=== PATIENT | female | born 1950 | race Caucasian/White ===

== ENCOUNTER → 2016-07-25 | Outpatient (CLI) | payer BC ==
[~2016-07-25] MED LIST: ALBUTEROL SULFATE 0.083% NEB 2.5 MG/3 ML AMPUL NEB ONE
--- NOTE | 2016-07-27 09:50 | PULMONARY FUNCTION TEST ---
DATE OF SERVICE: 07/25/2016 THE VITAL CAPACITY IS SLIGHTLY DECREASED. THE EXPIRATORY FLOW RATES ARE SEVERELY DECREASED. THE FEV1/VC IS 35%, PREDICTED: 82% LUNG VOLUMES BY NITROGEN WASH OUT METHOD SHOW: TLC IS 92% OF PREDICTED FRC IS 106% OF PREDICTED RV IS 124% OF PREDICTED THE DLCO IS 8.7, 49% OF PREDICTED. THE RV/TLC RATIO IS 52% PREDICTED 39% AFTER BRONCHODILATOR, EXPIRATORY FLOW RATES SHOW NO SIGNIFICANT CHANGE. IMPRESSION: GOOD PATIENT EFFORT. SEVERE OBSTRUCTIVE DEFECT. LUNG VOLUMES ARE NORMAL, BUT THE INCREASED RV/TLC INDICATES AIR TRAPPING. DIFFUSING CAPACITY IS SEVERELY DECREASED. CC: PATRIC STARR MD > BIA
== END ==
LOC: RT 10:21
PROVIDERS: ATTEND Internal Medicine Pulmonary Disease
DX: J44.1 Chronic obstructive pulmonary disease with (acute) exacerbation (principal)
CPT/HCPCS: 94060; 94729

== ENCOUNTER 2017-02-01 14:12 | Inpatient (IN) | payer MEDICARE, OTHER ==
[2017-02-01] MEDS ORDERED: MORPHINE SULFATE 10 MG/ML INJ IV ONE (14:58)
--- NOTE | 2017-02-01 14:58 | ER Document Report ---
ED Hip Pain/Injury - General Chief Complaint: Hip Injury Stated Complaint: FALL HIP PAIN Time Seen by Provider: 02/01/17 14:57 Mode of Arrival: Stretcher Information source: Patient TRAVEL OUTSIDE OF THE [place] IN LAST 30 DAYS: No - HPI Patient complains to provider of: Injury, Pain, Hip Occurred: Just prior to arrival Where: [place]doors Onset/Duration: Sudden Quality of pain: Achy Severity: Moderate Pain Level: 5 Context: Fell/slipped Skin Color: Normal Skin Temperature: Warm Pain with palpation of the pelvis: Yes Notes: Patient is a 66-year-old female presenting to the emergency room today complaining of left hip pain status post fall, states she had a fall onto her knees yesterday evening causing injury with skin tears and abrasions, she was also having some pain in her left pelvis, she does have a history of a pelvic fracture in 2014, today she went to see her primary care provider regarding her pain, was stepping to get out of the car when the pain was intense and her leg gave out on her causing her to fall to the ground on her left hip, since then she has been and able to ambulate and her pain is significantly increased, she denies any head injury or loss of consciousness, last tetanus shot is in 2003 - Related Data Allergies/Adverse Reactions: No Known Allergies Allergy (Verified 02/01/17 16:00) Past Medical History - General Information source: Patient - Social History Smoking Status: Former Smoker Chew tobacco use (# tins/day): No Frequency of alcohol use: None Drug Abuse: None Family History: Hypertension - Father, Malignancy - Mother with lung cancer - Past Medical History Cardiac Medical History: Reports: Hx Hypertension Denies: Hx Coronary Artery Disease, Hx Heart Attack Pulmonary Medical History: Reports: Hx COPD, Hx Pneumonia Denies: Hx Asthma, Hx Bronchitis, Hx Tuberculosis Neurological Medical History: Denies: Hx Cerebrovascular Accident, Hx Seizures Malignancy Medical History: Reports: Hx Breast Cancer GI Medical History: Denies: Hx Hepatitis, Hx Hiatal Hernia, Hx Ulcer Musculoskeltal Medical History: Reports Hx Arthritis Psychiatric Medical History: Reports: Hx Anxiety, Hx Depression Infectious Medical History: Denies: Hx Hepatitis Past Surgical History: Reports: Hx Breast Surgery - Lumpectomy, Hx Gynecologic Surgery - lainey salpingooophorectomy, Hx Hysterectomy, Hx Tubal Ligation. Denies : Hx Mastectomy - LUMPECTOMY, Hx Open Heart Surgery, Hx Pacemaker - Immunizations Hx Diphtheria, Pertussis, Tetanus Vaccination: Yes - 2001 Hx Pneumococcal Vaccination: 07/05/15 Review of Systems - Review of Systems Constitutional: No symptoms reported EENT: No symptoms reported Cardiovascular: No symptoms reported Respiratory: No symptoms reported Gastrointestinal: No symptoms reported Genitourinary: No symptoms reported Female Genitourinary: No symptoms reported Musculoskeletal: See HPI Skin: See HPI Hematologic/Lymphatic: No symptoms reported Neurological/Psychological: No symptoms reported -: Yes All other systems reviewed and negative Physical Exam - Vital signs Vitals: Temp Pulse Resp BP Pulse Ox 98.0 F 80 18 117/64 96 02/01/17 14:02/01/17 14:26 02/01/17 14:26 02/01/17 14:02/01/17 14:26 Interpretation: Normal - General General appearance: Appears well, Alert - HEENT Head: Normocephalic, Atraumatic Eyes: Normal Pupils: PERRL - Respiratory Respiratory status: No respiratory distress Chest status: Nontender Breath sounds: Normal Chest palpation: Normal - Cardiovascular Rhythm: Regular Heart sounds: Normal auscultation Murmur: No - Abdominal Inspection: Normal Distension: No distension Bowel sounds: Normal Tenderness: Nontender Organomegaly: No organomegaly - Back Back: Normal, Nontender - Extremities General upper extremity: Normal inspection, Nontender, Normal color, Normal ROM , Normal temperature General lower extremity: Normal temperature. No: Casey's sign Hip: Tender - Tender to palpate in the left pubic area, pain with range of motion of the left leg which is slightly shortened, distal sensation and motor is intact with 2+ DP pulses and brisk capillary refill Knee: Abrasion - Abrasions and skin tears to bilateral knees - Neurological Neuro grossly intact: Yes Cognition: Normal Orientation: AAOx4 Charles Coma Scale Eye Opening: Spontaneous [place] Coma Scale Verbal: Oriented Charles Coma Scale Motor: Obeys Commands Charles Coma Scale Total: 15 Speech: Normal Motor strength normal: LUE, RUE, LLE, RLE Sensory: Normal - Psychological Associated symptoms: Normal affect, Normal mood - Skin Skin Temperature: Warm Skin Moisture: Dry Skin Color: Normal Course - Re-evaluation Re-evalutation: 02/01/17 15:22 A call was placed to the finishing area operator who transferred me to on-call orthopedics cell phone, Dr. Rodrigues, I was transferred right to voicemail and left a message requesting a return phone call 02/01/17 15:58 Patient was discussed with Dr. Rodrigues, who will see patient on consult for left femoral neck fracture 02/01/17 16:34 Patient was discussed with Dr. Sears who agrees to admit for further evaluation and treatment - Vital Signs Vital signs: Temp Pulse Resp BP Pulse Ox 98.0 F 80 18 117/64 96 02/01/17 14:26 02/01/17 14:26 02/01/17 14:26 02/01/17 14:26 02/01/17 14:26 - Laboratory Result Diagrams: 02/01/17 15:31 02/01/17 15:31 Laboratory results interpreted by me: 02/01/17 02/01/17 15:31 15:31 RBC 3.57 L Hct 33.8 L MCH 33.9 H Seg Neutrophils % 79.0 H Lymphocytes % 9.4 L Sodium 131.7 L Chloride 96 L BUN 6 L Direct Bilirubin 0.6 H AST 44 H - Diagnostic Test Radiology reviewed: Image reviewed, Reports reviewed - EKG Interpretation by Me EKG shows normal: Sinus rhythm Rate: Normal Rhythm: NSR Discharge - Discharge Clinical Impression: Hip fracture Qualifiers: Encounter type: initial encounter Fracture type: closed Laterality: left Qualified Code(s): S72.002A - Fracture of unspecified part of neck of left femur , initial encounter for closed fracture Condition: Stable Disposition: ADMITTED INPATIENT Admitting Provider: Hospitalist Unit Admitted: Medical Floor
--- NOTE | 2017-02-01 15:19 | RADIOLOGY REPORT (SQ) ---
EXAM DESCRIPTION: HIP LEFT AP/LATERAL COMPLETED DATE/TIME: 02/01/2017 3:04 pm REASON FOR STUDY: fall COMPARISON: None. NUMBER OF VIEWS: Two views. TECHNIQUE: AP pelvis and additional frog-leg view of the left hip. LIMITATIONS: None. FINDINGS: MINERALIZATION: Normal. LEFT HIP: Fracture is identified at the base of the femoral neck. There is angulation with some over riding of the fracture fragments. RIGHT HIP: No fracture or dislocation. No worrisome bone lesions. PUBIS AND ISCHIUM: There is bony deformity of the pubic rami on the left presumably related to previo us trauma PELVIS: No fracture. SACRUM: No fracture or dislocation. No worrisome bone lesions. LOWER LUMBAR SPINE: Postsurgical changes are identified at the lumbar sacral junction with orthopedic hardware. SOFT TISSUES: No findings. OTHER: No other significant finding. IMPRESSION: Fracture involving the base of the left femoral neck. Other findings as noted above TECHNICAL DOCUMENTATION: JOB ID: [id number] [employer]- All Rights Reserved
[2017-02-01] MEDS ORDERED: DIPH/PERTUSS(ACELL)/TETANUS VAC/PF 0.5 ML SYR (>=10YO) IM ONE (15:38)
[2017-02-01 15:45] LABS: ABSOLUTE BASOPHILS # (AUTO) 0.1 10^3/uL (0.0-0.2); ABSOLUTE EOSINOPHILS # (AUTO) 0.3 10^3/uL (0.0-0.6); ABSOLUTE LYMPHOCYTES (AUTO) 0.6 10^3/uL (0.5-4.7); ABSOLUTE MONOCYTES (AUTO) 0.4 10^3/uL (0.1-1.4); ABSOLUTE NEUT (AUTO) 5.1 10^3/uL (1.7-8.2); BASOPHILS % (AUTO) 1.1 % (0-2); HEMATOCRIT 33.8 % (36.0-47.0); HEMOGLOBIN 12.1 g/dL (12.0-15.5); HGB HCT DIFFERENCE 2.5; LYMPHOCYTES % (AUTO) 9.4 % (13-45); MEAN CORPUSCULAR HEMOGLOBIN 33.9 pg (27.0-33.4); MEAN CORPUSCULAR HGB CONC 35.8 g/dL (32.0-36.0); MEAN CORPUSCULAR VOLUME 95 fl (80-97); MONOCYTES % (AUTO) 6.5 % (3-13); RED BLOOD COUNT 3.57 10^6/uL (3.72-5.28); RED CELL DISTRIBUTION WIDTH 12.6 % (11.5-14.0); WHITE BLOOD COUNT 6.5 10^3/uL (4.0-10.5)
[2017-02-01 15:56] LABS: PARTIAL THROMBOPLASTIN TIME 32.1 SEC (23.5-35.8)
--- NOTE | 2017-02-01 16:00 | RADIOLOGY REPORT (SQ) ---
EXAM DESCRIPTION: CHEST SINGLE VIEW COMPLETED DATE/TIME: 02/01/2017 3:26 pm REASON FOR STUDY: fall COMPARISON: March 2016 EXAM PARAMETERS: NUMBER OF VIEWS: One view. TECHNIQUE: Single frontal radiographic view of the chest acquired. RADIATION DOSE: NA LIMITATIONS: None. FINDINGS: LUNGS AND PLEURA: No opacities, masses or pneumothorax. No pleural effusion. Linear scarr ing or subsegmental atelectasis is identified in the left lung base. I cannot exclude a component of obstructive lung disease. MEDIASTINUM AND HILAR STRUCTURES: No masses. Contour normal. HEART AND VASCULAR STRUCTURES: Heart normal in size. Normal vasculature. BONES: No acute findings. HARDWARE: None in the chest. OTHER: No other significant finding. IMPRESSION: No significant interval change. No acute changes. Other findings as noted above TECHNICAL DOCUMENTATION: JOB ID: [id number]
[2017-02-01 16:07] LABS: ALANINE AMINOTRANSFERASE 43 U/L (9-52); ALBUMIN 4.5 g/dL (3.5-5.0); ALKALINE PHOSPHATASE 93 U/L (38-126); ANION GAP 9 (5-19); ASPARTATE AMINO TRANSFERASE 44 U/L (14-36); BILIRUBIN,DIRECT 0.6 mg/dL (0.0-0.4); BILIRUBIN,TOTAL 0.9 mg/dL (0.2-1.3); BLOOD UREA NITROGEN 6 mg/dL (7-20); CALCIUM 9.8 mg/dL (8.4-10.2); CARBON DIOXIDE 27 mmol/L (22-30); CHLORIDE 96 mmol/L (98-107); CREATININE RESULT 0.67 mg/dL (0.52-1.25); GLUCOSE 96 mg/dL (75-110); POTASSIUM 4.5 mmol/L (3.6-5.0); SODIUM 131.7 mmol/L (137-145); TOTAL PROTEIN 6.6 g/dL (6.3-8.2)
[2017-02-01] MEDS ORDERED: ONDANSETRON HCL INJ/PF 4 MG/2 ML SDV IV PRN (16:34)
[2017-02-01] MEDS ORDERED: IPRATROPIUM/ALBUTEROL 0.5-2.5 MG/3 ML AMPUL NEB PRN (16:34)
[2017-02-01] MEDS ORDERED: ACETAMINOPHEN 325 MG TABLET PO PRN (16:34)
[2017-02-01] MEDS ORDERED: MORPHINE SULFATE 10 MG/ML INJ IV PRN (16:42)
[2017-02-01 17:19] LABS: APPEARANCE,URINE CLEAR; BILIRUBIN,URINE NEGATIVE (NEGATIVE); GLUCOSE, URINE NEGATIVE (NEGATIVE); KETONES,URINE NEGATIVE (NEGATIVE); LEUKOCYTE ESTERASE,URINE NEGATIVE (NEGATIVE); NITRITE,URINE NEGATIVE (NEGATIVE); PROTEIN,URINE NEGATIVE (NEGATIVE); URINE SPECIFIC GRAVITY 1.006; UROBILINOGEN,URINE NEGATIVE mg/dL (<2.0)
[2017-02-01] MEDS: DOCUSATE SODIUM 100 MG CAPSULE PO SCH (18:10)
[2017-02-01] MEDS ORDERED: LORAZEPAM 0.5 MG TABLET PO PRN (18:15)
--- NOTE | 2017-02-01 18:36 | PDOC H&P ---
History of Present Illness Admission Date/PCP: 02/01/17 16:35 ROBLES FINNEGAN MD History of Present Illness: REGGIE ZHENG is a 66 year old female with a hx of o2 dependant COPD, who complaining of left hip pain status post fall, states she had a fall onto her knees yesterday evening causing injury with skin tears and abrasions, she was also having some pain in her left pelvis, she does have a history of a pelvic fracture in 2014, today she went to see her primary care provider regarding her pain, was stepping to get out of the car when the pain was intense and her leg gave out on her causing her to fall to the ground on her left hip, since then she has been and able to ambulate and her pain is significantly increased, she denies any head injury or loss of consciousness, chest pain, syncope. She is referred to hospital service due to her comorbid conditions. Past Medical History Cardiac Medical History: Reports: Hypertension Denies: Coronary Artery Disease, Myocardial Infarction Pulmonary Medical History: Reports: Chronic Obstructive Pulmonary Disease (COPD) , Pneumonia Denies: Asthma, Bronchitis, Tuberculosis Neurological Medical History: Denies: Seizures Malignancy Medical History: Reports: Breast Cancer GI Medical History: Denies: Hepatitis, Hiatal Hernia Musculoskeltal Medical History: Reports: Arthritis Psychiatric Medical History: Reports: Depression Hematology: Denies: Anemia, Sickle Cell Disease Past Surgical History Past Surgical History: Reports: Hysterectomy, Mastectomy - LUMPECTOMY, Orthopedic Surgery - Back surgery 2, Tubal Ligation Denies: Amputation, Pacemaker Social History Smoking Status: Former Smoker Frequency of Alcohol Use: Social Amount of Alcoholic Beverages Per Day: 2 beer/day Hx Recreational Drug Use: No Drugs: None Hx Prescription Drug Abuse: No - Advance Directive Resuscitation Status: Full Code Surrogate healthcare decision maker:: Will Ferguson, [place] Family History Family History: Hypertension - Father, Malignancy - Mother with lung cancer Parental Family History Reviewed: Yes Children Family History Reviewed: Yes Sibling(s) Family History Reviewed.: Yes Medication/Allergy Home Medications: Albuterol Sulfate [Proair HFA] 2 puff IN Q6HP PRN 02/01/17 Aspirin [Aspirin EC] 81 mg PO DAILY 02/01/17 Budesonide/Formoterol Fumarate [Symbicort 160-4.5 Mcg Inhaler] 2 puff IN HSP PRN 02/01/17 Budesonide/Formoterol Fumarate [Symbicort 160-4.5 Mcg Inhaler] 2 puff IN QAM Cetirizine HCl [Zyrtec 10 mg Tablet] 10 mg PO DAILY 02/01/17 Citalopram Hydrobromide [Celexa] 40 mg PO DAILY 02/01/17 Lisinopril [Zestril] 20 mg PO DAILY 02/01/17 Lorazepam [Ativan 0.5 mg Tablet] 0.5 mg PO BIDP PRN 02/01/17 Meloxicam [Mobic] 15 mg PO DAILY 02/01/17 Multivit-Min/Iron/Folic/Lutein [Centrum Silver Women Tablet] 1 tab PO DAILY Pantoprazole Sodium [Protonix] 40 mg PO DAILY 02/01/17 Tiotropium [place] [Spiriva] 2 puff IN DAILYP PRN 02/01/17 Allergies/Adverse Reactions: No Known Allergies Allergy (Verified 02/01/17 16:00) Review of Systems Constitutional: ABSENT: chills, fever(s), headache(s), weight gain, weight loss Eyes: ABSENT: visual disturbances Ears: ABSENT: hearing changes Cardiovascular: ABSENT: chest pain, dyspnea on exertion, edema, orthropnea, palpitations Respiratory: ABSENT: cough, hemoptysis Gastrointestinal: ABSENT: abdominal pain, constipation, diarrhea, hematemesis, hematochezia, nausea, vomiting Genitourinary: ABSENT: dysuria, hematuria Musculoskeletal: PRESENT: deformity. ABSENT: joint swelling Integumentary: ABSENT: rash, wounds Neurological: ABSENT: abnormal gait, abnormal speech, confusion, dizziness, focal weakness, syncope Psychiatric: ABSENT: anxiety, depression, homidical ideation, suicidal ideation Endocrine: ABSENT: cold intolerance, heat intolerance, polydipsia, polyuria Hematologic/Lymphatic: ABSENT: easy bleeding, easy bruising Physical Exam Vital Signs: Temp Pulse Resp BP Pulse Ox 98.8 F 91 16 140/68 H 99 02/01/17 17:40 02/01/17 17:40 02/01/17 17:40 02/01/17 17:40 02/01/17 17:40 Intake & Output 01/31/17 02/01/17 02/02/17 06:59 06:59 06:59 Weight 53.977 kg General appearance: PRESENT: no acute distress, well-developed, well-nourished Head exam: PRESENT: atraumatic, normocephalic Eye exam: PRESENT: conjunctiva pink, EOMI, PERRLA. ABSENT: scleral icterus Ear exam: PRESENT: normal external ear exam Mouth exam: PRESENT: moist, tongue midline Neck exam: ABSENT: JVD, lymphadenopathy, thyromegaly, tracheal deviation Respiratory exam: PRESENT: clear to auscultation lainey, prolonged expiratory phas , symmetrical, unlabored. ABSENT: accessory muscle use, rales, rhonchi, tachypnea, wheezes Cardiovascular exam: PRESENT: RRR. ABSENT: diastolic murmur, rubs, systolic murmur Pulses: PRESENT: normal dorsalis pedis pul Vascular exam: PRESENT: normal capillary refill GI/Abdominal exam: PRESENT: normal bowel sounds, soft. ABSENT: distended, firm , guarding, mass, Chairez's sign, organolmegaly, rebound, rigid, tenderness Rectal exam: PRESENT: deferred Extremities exam: PRESENT: full ROM. ABSENT: calf tenderness, clubbing, pedal edema Neurological exam: PRESENT: alert, awake, oriented to person, oriented to place , oriented to time, oriented to situation, CN II-XII grossly intact. ABSENT: motor sensory deficit Psychiatric exam: PRESENT: appropriate affect, normal mood. ABSENT: homicidal ideation, suicidal ideation Skin exam: PRESENT: dry, intact, warm. ABSENT: cyanosis, rash Results Laboratory Results: 02/01/17 16:45 Urine Color YELLOW Urine Appearance CLEAR Urine pH 7.0 Ur Specific [place] 1.006 Urine Protein NEGATIVE Urine Glucose (UA) NEGATIVE Urine Ketones NEGATIVE Urine Blood NEGATIVE Urine Nitrite NEGATIVE Ur Leukocyte Esterase NEGATIVE Urine RBC (Auto) 0 Impressions: Hip X-Ray 02/01/17 14:32 IMPRESSION: Fracture involving the base of the left femoral neck. Other findings as noted above Chest X-Ray 02/01/17 14:58 IMPRESSION: No significant interval change. No acute changes. Other findings as noted above Assessment & Plan - Diagnosis (1) Hip fracture Qualifiers: Encounter type: initial encounter Fracture type: closed Laterality: left Qualified Code(s): S72.002A - Fracture of unspecified part of neck of left femur, initial encounter for closed fracture Is this a current diagnosis for this admission?: Yes Plan: Consult surgery (2) Acute and chronic respiratory failure with hypoxia Is this a current diagnosis for this admission?: Yes Plan: Patient normally uses 2 1/2 L of nasal cannula Obtain bedside PFT (3) Gastroesophageal reflux disease Qualifiers: Esophagitis presence: without esophagitis Qualified Code(s): K21.9 - Gastro -esophageal reflux disease without esophagitis Is this a current diagnosis for this admission?: Yes Plan: Continue PPI (4) Hypertension Qualifiers: Hypertension type: essential hypertension Qualified Code(s): I10 - Essential (primary) hypertension Is this a current diagnosis for this admission?: Yes Plan: Continue lisinopril 02/02/17 10:00 Lisinopril [Zestril] 20 mg PO DAILY (5) Osteoarthritis Qualifiers: Osteoarthritis location: unspecified site Osteoarthritis type: unspecified Qualified Code(s): M19.90 - Unspecified osteoarthritis, unspecified site Is this a current diagnosis for this admission?: Yes (6) Seasonal allergic rhinitis Qualifiers: Allergic rhinitis trigger: unspecified Qualified Code(s): J30.2 - Other seasonal allergic rhinitis Is this a current diagnosis for this admission?: No (7) COPD (chronic obstructive pulmonary disease) Qualifiers: COPD type: emphysema Emphysema type: unspecified Qualified Code(s): J43.9 - Emphysema, unspecified Is this a current diagnosis for this admission?: Yes Plan: prn treatments o2 bedside pft - Time Time Spent: 50 to 70 Minutes Anticipated discharge: Acute Rehab
[2017-02-01] MEDS ORDERED: ALBUTEROL SULFATE HFA (90 MCG/PUFF) 200 PUFF/8.5 GM MDI IH PRN (19:00)
[2017-02-01] MEDS ORDERED: TIOTROPIUM BROMIDE DPI 5 CAP/KIT (18 MCG/CAP) IH PRN (19:00)
[2017-02-01 19:10] LABS: HEMATOCRIT 33.8 % (36.0-47.0); HEMOGLOBIN 12.2 g/dL (12.0-15.5); HGB HCT DIFFERENCE 2.8; MEAN CORPUSCULAR HEMOGLOBIN 34.2 pg (27.0-33.4); MEAN CORPUSCULAR VOLUME 95 fl (80-97); RED BLOOD COUNT 3.57 10^6/uL (3.72-5.28); RED CELL DISTRIBUTION WIDTH 12.7 % (11.5-14.0); WHITE BLOOD COUNT 8.8 10^3/uL (4.0-10.5)
[2017-02-01 19:38] LABS: ANION GAP 10 (5-19); BLOOD UREA NITROGEN 5 mg/dL (7-20); CALCIUM 9.6 mg/dL (8.4-10.2); CARBON DIOXIDE 27 mmol/L (22-30); CHLORIDE 94 mmol/L (98-107); CREATININE RESULT 0.61 mg/dL (0.52-1.25); GLUCOSE 107 mg/dL (75-110); POTASSIUM 4.1 mmol/L (3.6-5.0); SODIUM 131.1 mmol/L (137-145)
[2017-02-01] MEDS ORDERED: SILVER SULFADIAZINE 1% CREAM 25 GM TP ONE (20:00)
[2017-02-01] MEDS: BUDESONIDE/FORMOTEROL 160-4.5 MCG 60 PUFF/6 GM MDI IH SCH (21:38)
[2017-02-01] MEDS: HEPARIN SOD (PORCINE) 5,000 UNIT/ML 1 ML SYRINGE SUBCUT SCH (21:57)
--- NOTE | 2017-02-01 22:55 | EKG REPORT ---
SEVERITY:- OTHERWISE NORMAL ECG - SINUS RHYTHM LOW VOLTAGE IN FRONTAL LEADS : Confirmed by: Laurence Hanson 01-Feb-2017 22:54:34
[2017-02-01] MEDS: KETOROLAC TROMETHAMINE INJ/PF 30 MG/1 ML SDV IV PRN (22:56)
[2017-02-02] MEDS: KETOROLAC TROMETHAMINE INJ/PF 30 MG/1 ML SDV IV PRN (04:34)
[2017-02-02] MEDS: HEPARIN SOD (PORCINE) 5,000 UNIT/ML 1 ML SYRINGE SUBCUT SCH ×2 (05:22→13:32)
[2017-02-02 06:21] LABS: ABSOLUTE EOSINOPHILS # (AUTO) 0.3 10^3/uL (0.0-0.6); ABSOLUTE LYMPHOCYTES (AUTO) 0.8 10^3/uL (0.5-4.7); ABSOLUTE MONOCYTES (AUTO) 0.6 10^3/uL (0.1-1.4); ABSOLUTE NEUT (AUTO) 4.2 10^3/uL (1.7-8.2); BASOPHILS % (AUTO) 0.8 % (0-2); EOSINOPHILS % (AUTO) 5.8 % (0-6); HEMATOCRIT 32.6 % (36.0-47.0); HEMOGLOBIN 11.6 g/dL (12.0-15.5); HGB HCT DIFFERENCE 2.2; MEAN CORPUSCULAR HGB CONC 35.5 g/dL (32.0-36.0); MEAN CORPUSCULAR VOLUME 96 fl (80-97); MONOCYTES % (AUTO) 10.7 % (3-13); RED BLOOD COUNT 3.41 10^6/uL (3.72-5.28); RED CELL DISTRIBUTION WIDTH 12.7 % (11.5-14.0); SEGMENTED NEUTROPHILS % (AUTO) 69.7 % (42-78)
[2017-02-02 06:40] LABS: ANION GAP 7 (5-19); BLOOD UREA NITROGEN 9 mg/dL (7-20); CALCIUM 9.8 mg/dL (8.4-10.2); CARBON DIOXIDE 29 mmol/L (22-30); CHLORIDE 96 mmol/L (98-107); CREATININE RESULT 0.72 mg/dL (0.52-1.25); GLUCOSE 105 mg/dL (75-110); POTASSIUM 4.6 mmol/L (3.6-5.0); SODIUM 131.9 mmol/L (137-145)
[2017-02-02] MEDS ORDERED: NORMAL SALINE 1000 ML 1,000 ML IV PRN (07:08)
[2017-02-02] MEDS: LANSOPRAZOLE 30 MG TAB.RAP.DR PO SCH (08:22)
[2017-02-02] MEDS: MORPHINE SULFATE 10 MG/ML INJ IV PRN ×2 (09:57→23:26)
--- NOTE | 2017-02-02 09:58 | XCELERA REPORT ---
[address] [address] Transthoracic Echocardiogram Report Name: REGGIE ZHENG Age: 66 yrs Gender: Female : 1950 Patient Status: Inpatient Patient Location: [address] [place] [address] Study Date: 02/01/2017 07:37 PM Height: 63 in Weight: 119 lb BSA: 1.6 m2 Procedure: A complete two-dimensional transthoracic echocardiogram was performed (2D, M-mode, spectral and color flow Doppler). The study was technically difficult with many images being suboptimal in quality. Reason For Study: CARDIAC CLEARANCE Ordering Physician: BRIE MONTENEGRO Performed By: Razia Santana Interpretation Summary The left ventricular ejection fraction is normal. There is borderline concentric left ventricular hypertrophy. Doppler measurements suggest pseudonormalized left ventricular relaxation, which is associated with grade II/IV or mild to moderate diastolic dysfunction The left ventricle is grossly normal size. Wall motion cannot be accurately commented on, but no definite regional wall motion abnormalities noted. The right ventricular systolic function is normal. The left atrial size is normal. The right atrium is normal in size There is a trace amount of mitral regurgitation There is no mitral valve stenosis. There is no aortic valve stenosis No aortic regurgitation is present. There is a trace or physiologic amount of tricuspid regurgitation Tricuspid regurgitation jet envelope not well defined to measure RV systolic pressure accurately. The aortic root is not well visualized but is probably normal size. The inferior vena cava appeared normal and decreased > 50% with respiration (RAP 5-10 mmHg) There is no pericardial effusion. MMode/2D Measurements & Calculations RVDd: 2.3 cm LVIDd: 4.0 cm FS: 31.3 % Ao root diam: 2.9 cm IVSd: 1.1 cm LVIDs: 2.8 cm EDV(Teich): 70.8 ml LVPWd: 1.0 cm ESV(Teich): 28.5 ml Ao root area: 6.5 cm2 EF(Teich): 59.7 % LA dimension: 2.7 cm LVOT diam: 1.8 cm LVOT area: 2.6 cm2 Doppler Measurements & Calculations MV E max prabhu: MV P1/2t max prabhu: Ao V2 max: LV V1 max P.3 cm/sec 53.3 cm/sec 130.9 cm/sec 7.0 mmHg MV A max prabhu: MV P1/2t: 52.2 msec Ao max PG: LV V1 max: 66.1 cm/sec MVA(P1/2t): 4.2 cm2 6.8 mmHg 132.7 cm/sec MV E/A: 0.79 MV dec slope: STEVEN(V,D): 2.6 cm2 299.2 cm/sec2 PA V2 max: PI end-d prabhu: 100.7 cm/sec 90.9 cm/sec PA max P.1 mmHg Left Ventricle The left ventricle is grossly normal size. There is borderline concentric left ventricular hypertrophy. The left ventricular ejection fraction is normal. Doppler measurements suggest pseudonormalized left ventricular relaxation, which is associated with grade II/IV or mild to moderate diastolic dysfunction. Wall motion cannot be accurately commented on, but no definite regional wall motion abnormalities noted. Right Ventricle The right ventricle is grossly normal size. There is normal right ventricular wall thickness. The right ventricular systolic function is normal. Atria The right atrium is normal in size. The left atrial size is normal. Interarterial septum not well visualized and not well dopplered. Cannot comment on ASD/PFO presence. Mitral Valve The mitral valve is grossly normal. There is no mitral valve stenosis. There is a trace amount of mitral regurgitation. Aortic Valve The aortic valve is not well visualized secondary to technical limitations. There is no aortic valve stenosis. No aortic regurgitation is present. Tricuspid Valve The tricuspid valve is not well visualized, but is grossly normal. There is no tricuspid stenosis. There is a trace or physiologic amount of tricuspid regurgitation. Tricuspid regurgitation jet envelope not well defined to measure RV systolic pressure accurately. Pulmonic Valve The pulmonic valve is not well visualized. There is a trace amount of pulmonic regurgitation. Great Vessels The aortic root is not well visualized but is probably normal size. The inferior vena cava appeared normal and decreased > 50% with respiration (RAP 5-10 mmHg). Effusions There is no pericardial effusion. : BRIE MONTENEGRO > Laurence Hanson
[2017-02-02] MEDS ORDERED: (PENDING PHARMACY ID) (Lisinopril [Zestril] 20 MG) PO SCH (10:00)
[2017-02-02] MEDS ORDERED: (PENDING PHARMACY ID) (Citalopram Hydrobromide [Celexa] 40 MG) PO SCH (10:00)
[2017-02-02] MEDS: FOLIC ACID 1 MG TABLET PO SCH (10:06)
[2017-02-02] MEDS: CITALOPRAM HYDROBROMIDE 20 MG TABLET PO SCH (10:06)
[2017-02-02] MEDS: MULTIVITAMIN TABLET PO SCH (10:06)
[2017-02-02] MEDS: DOCUSATE SODIUM 100 MG CAPSULE PO SCH ×2 (10:06→17:48)
[2017-02-02] MEDS: MELOXICAM 15 MG TABLET PO SCH (10:06)
[2017-02-02] MEDS: LISINOPRIL 10 MG TABLET PO SCH (10:06)
[2017-02-02] MEDS: THIAMINE HCL 100 MG TABLET PO SCH (10:06)
[2017-02-02] MEDS: SILVER SULFADIAZINE 1% CREAM 25 GM TP SCH (10:06)
[2017-02-02] MEDS: CETIRIZINE 10 MG TABLET PO SCH (10:06)
[2017-02-02] MEDS: MAGNESIUM SULFATE/D5W 1 GM/100 ML RTUPB IV SCH ×2 (11:09→12:30)
[2017-02-02] MEDS: BUDESONIDE/FORMOTEROL 160-4.5 MCG 60 PUFF/6 GM MDI IH SCH ×2 (11:10→21:44)
[2017-02-02] MEDS ORDERED: LIDOCAINE 2% INJ-PF (20 MG/ML) 10 ML AMPUL ONE (13:18)
[2017-02-02] MEDS ORDERED: DEXAMETHASONE SOD PHOSPHATE INJ 4 MG/1 ML VIAL ONE (13:18)
[2017-02-02] MEDS ORDERED: ONDANSETRON HCL INJ/PF 4 MG/2 ML SDV ONE (13:18)
[2017-02-02] MEDS ORDERED: KETOROLAC TROMETHAMINE 60 MG/2 ML SDV ONE (13:18)
[2017-02-02] MEDS ORDERED: CEFAZOLIN INJ 1 GM VIAL ONE (13:47)
[2017-02-02] MEDS ORDERED: PROPOFOL INJ 200 MG/20 ML VIAL IV ONE (13:59)
[2017-02-02] MEDS ORDERED: MIDAZOLAM 2 MG/2 ML INJ ONE (13:59)
[2017-02-02] MEDS ORDERED: ACETAMINOPHEN 100 ML IV ONE (13:59)
[2017-02-02] MEDS ORDERED: DEXMEDETOMIDINE INJ 80 MCG/20 ML VIAL IV ONE (14:00)
[2017-02-02] MEDS ORDERED: FENTANYL CITRATE INJ/PF 100 MCG/2 ML AMPUL ONE ×2 (14:00)
[2017-02-02] MEDS ORDERED: KETAMINE HCL INJ 500 MG/10 ML VIAL ONE (14:06)
[2017-02-02] MEDS ORDERED: EPHEDRINE SULFATE INJ 50 MG/1 ML AMPULE ONE (14:07)
[2017-02-02] MEDS ORDERED: FENTANYL CITRATE INJ/PF 100 MCG/2 ML AMPUL IV PRN ×3 (14:44)
[2017-02-02] MEDS ORDERED: ONDANSETRON HCL INJ/PF 4 MG/2 ML SDV IV PRN (14:44)
[2017-02-02] MEDS ORDERED: DIPHENHYDRAMINE HCL 50 MG/ML VIAL IV PRN (14:44)
[2017-02-02] MEDS ORDERED: MEPERIDINE HCL/PF INJ 25 MG/1 ML DISP.SYRIN IV PRN (14:44)
[2017-02-02] MEDS ORDERED: PROMETHAZINE HCL INJ 25 MG/1 ML VIAL IV PRN ×2 (14:44)
--- NOTE | 2017-02-02 16:05 | RADIOLOGY REPORT (SQ) ---
EXAM DESCRIPTION: NO CHG FLUORO; HIP LEFT AP/LATERAL COMPLETED DATE/TIME: 02/02/2017 3:55 pm REASON FOR STUDY: LEFT HIP IM NAILING COMPARISON: None. FLUOROSCOPY TIME: 0.7 minutes 11 Images saved to PACS TECHNIQUE: Intra-operative images acquired during surgical procedure to evaluate progress. NUMBER OF IMAGES: 11 LIMITATIONS: None. FINDINGS: Cachorro and compression screw fixation of femoral neck fracture. Alignment is anatomic. IMPRESSION: IMAGE(S) OBTAINED DURING PROCEDURE. COMMENT: Quality ID [id number]: Final reports for procedures using fluoroscopy that document radiation exp osure indices, or exposure time and number of fluorographic images (if radiation exposure indices are not available) Please consult full operative report of the attending physician for description of the procedure. TECHNICAL DOCUMENTATION: JOB ID: [id number] [employer]- All Rights Reserved
--- NOTE | 2017-02-02 16:05 | RADIOLOGY REPORT (SQ) ---
EXAM DESCRIPTION: NO CHG FLUORO; HIP LEFT AP/LATERAL COMPLETED DATE/TIME: 02/02/2017 3:55 pm REASON FOR STUDY: LEFT HIP IM NAILING COMPARISON: None. FLUOROSCOPY TIME: 0.7 minutes 11 Images saved to PACS TECHNIQUE: Intra-operative images acquired during surgical procedure to evaluate progress. NUMBER OF IMAGES: 11 LIMITATIONS: None. FINDINGS: Cachorro and compression screw fixation of femoral neck fracture. Alignment is anatomic. IMPRESSION: IMAGE(S) OBTAINED DURING PROCEDURE. COMMENT: Quality ID [id number]: Final reports for procedures using fluoroscopy that document radiation exp osure indices, or exposure time and number of fluorographic images (if radiation exposure indices are not available) Please consult full operative report of the attending physician for description of the procedure. TECHNICAL DOCUMENTATION: JOB ID: [id number] [employer]- All Rights Reserved
--- NOTE | 2017-02-02 16:19 | Operative Report ---
Operative Report DATE OF SURGERY: 02/02/17 PREOPERATIVE DIAGNOSIS: Left Basicervical hip fracture POSTOPERATIVE DIAGNOSIS: Same OPERATION: Cephalo-medullary nailing of left hip fracture SURGEON: BRIE MONTENEGRO ANESTHESIA: GA TISSUE REMOVED OR ALTERED: None COMPLICATIONS: None ESTIMATED BLOOD LOSS: 100mL INTRAOPERATIVE FINDINGS: As above PROCEDURE: Patient was seen and evaluated in the preoperative holding area. The left lower extremity was initialized and marked. Patient received 2 g Ancef IV for bacterial prophylaxis. Patient was taken back to the operative room where transferred operative table. Patient was placed under spinal anesthesia. Once adequate anesthetized he was carefully placed onto the hip positioner the nonoperative lower extremity and bilateral upper extremities were carefully padded and the peroneal nerve was padded and on the nonoperative extremity. The operative extremity was placed in a traction along with adduction and internal rotation. A surgical team debriefing was performed ensuring all instrumentation was available, the surgical procedure was discussed with possible concerns reviewed. A timeout was done identifying correct patient, procedure and extremity everyone in attendance agree with this and verbalized no concerns. Reduction maneuver with the use of the hip traction table were done and C-arm fluoroscopy was used to confirm optimal reduction of the intertrochanteric fracture. Once this was confirmed the lower extremity was prepped with chlor prep and draped in a sterile fashion. At this point a small skin incision was made proximal to the greater trochanter. The guidewire was placed onto the tip of the trochanter advanced down to the level of the lesser trochanter. AP and lateral fluoroscopy was used to confirm appropriate placement of the guidewire. The skin incision was then extended and the underlying fascia opened up carefully to the tip of the greater trochanter. The entry reamer was then used and advanced to the level of the lesser trochanter. At this point Edwar short gamma nail was opened up and placed onto the aiming arm and advanced down the shaft of the femur. AP and lateral fluoroscopy was then used to confirm appropriate placement of the nail. Then turned my attention to the compression screw fixation in the femoral head. The trochars were advanced to the skin, a skin incision was made, careful dissection down to the fascia to the lateral femoral cortex was then partaken. The guidewire was then used and placed in the center center position with the tip apex distance less than 25 mm. Once this position was obtained the size of the compression screw was measured. AP and lateral fluoroscopy used to confirm appropriate placement of our guide wire. The step reamer was used to drill up through the femoral neck and head. I then carefully advanced the compression screw into position. AP and lateral fluoroscopy was done to confirm appropriate placement of the compression screw this was then locked into position proximally. The compression screw was then disengaged from its mounting device and the guidewire was removed. Lastly proceeded with locking of the nail distally. Using the aiming arm the trochars were advanced to the skin, a skin incision was made. Careful dissection done with a hemostat to the lateral cortex of the femur. I then drilled the near and far cortices. Measured the appropriate sized distal locking screw and secured it into position. At this point AP/lateral and oblique views of the proximal and distal aspect of the nail were taken confirming appropriate placement of the compression screw, distal locking screw and intramedullary nail. Once this was confirmed I proceeded with copious irrigation of the proximal and distal wounds. The deep tissues were closed with 0 Vicryl suture, subcutaneous tissues were closed with 2-0 Vicryl and radha for skin. A dressing was placed. Sponge counts, instrument counts and needle counts were correct. Patient was then transferred from the operating room table to the operating room stretcher. The was no intraoperative complications patient tolerated procedure well was stable to PACU. Implants used: [place] 11 x 180 mm 125 Short Gamma Nail with a 90 mm compression screw Postoperative plan: Patient will begin physical therapy on postop day #1 with Xarelto daily.
--- NOTE | 2017-02-02 16:22 | PDOC PROGRESS REPORT ---
Subjective Progress Note for:: 02/02/17 Subjective:: Patient reports that she still having hip pain. She reports she is feeling otherwise well. Patient denies chest pain, shortness of breath, abdominal pain, nausea, vomiting, fevers, chills, diarrhea, constipation, headache, new onset weakness. Physical Exam Vital Signs: Temp Pulse Resp BP Pulse Ox 98.4 F 85 18 120/58 L 100 02/02/17 15:13 02/02/17 15:28 02/02/17 15:28 02/02/17 15:28 02/02/17 15:28 Intake & Output 02/01/17 02/02/17 02/03/17 06:59 06:59 06:59 Intake Total 370 500 Output Total 740 500 Balance -370 0 Weight 54.3 kg Exam: General: Awake alert and orientedx3, no acute respiratory distress HEENT: AT/NC, PERRL, EOMI, oropharynx is moist, pink, no scleral icterus, no conjunctival injection Neck: No JVD, trachea midline Chest: Clear to auscultation bilaterally, no wheezes rhonchi or rales CV: Regular rate and rhythm, normal S1 and S2, no murmur, rub, or gallop Abdomen: Soft, nontender to palpation, nondistended, active bowel sounds; no rebound, rigidity, or guarding Extremities: No cyanosis, clubbing or edema; LLE internally rotated and shortened Neuro: Cranial nerves II through XII are grossly intact without focal deficits; awake alert and orientedx3 Psych: Normal mood and affect Results Laboratory Results: 02/02/17 05:25 02/02/17 05:25 02/01/17 02/01/17 02/01/17 16:45 18:53 18:53 WBC 8.8 RBC 3.57 L Hgb 12.2 Hct 33.8 L MCV 95 MCH 34.2 H MCHC 36.0 RDW 12.7 Plt Count 258 Seg Neutrophils % Lymphocytes % Monocytes % Eosinophils % Basophils % Absolute Neutrophils Absolute Lymphocytes Absolute Monocytes Absolute Eosinophils Absolute Basophils Sodium 131.1 L Potassium 4.1 Chloride 94 L Carbon Dioxide 27 Anion Gap 10 BUN 5 L Creatinine 0.61 Est GFR ( Amer) > 60 Est GFR (Non-Af Amer) > 60 Glucose 107 Calcium 9.6 Magnesium Urine Color YELLOW Urine Appearance CLEAR Urine pH 7.0 Ur Specific [place] 1.006 Urine Protein NEGATIVE Urine Glucose (UA) NEGATIVE Urine Ketones NEGATIVE Urine Blood NEGATIVE Urine Nitrite NEGATIVE Ur Leukocyte Esterase NEGATIVE Urine RBC (Auto) 0 Blood Type Antibody Screen 02/01/17 02/02/17 02/02/17 18:53 05:25 05:25 WBC 6.0 RBC 3.41 L Hgb 11.6 L Hct 32.6 L MCV 96 MCH 34.0 H MCHC 35.5 RDW 12.7 Plt Count 229 Seg Neutrophils % 69.7 Lymphocytes % 13.0 Monocytes % 10.7 Eosinophils % 5.8 Basophils % 0.8 Absolute Neutrophils 4.2 Absolute Lymphocytes 0.8 Absolute Monocytes 0.6 Absolute Eosinophils 0.3 Absolute Basophils 0.0 Sodium 131.9 L Potassium 4.6 Chloride 96 L Carbon Dioxide 29 Anion Gap 7 BUN 9 Creatinine 0.72 Est GFR ( Amer) > 60 Est GFR (Non-Af Amer) > 60 Glucose 105 Calcium 9.8 Magnesium Urine Color Urine Appearance Urine pH Ur Specific [place] Urine Protein Urine Glucose (UA) Urine Ketones Urine Blood Urine Nitrite Ur Leukocyte Esterase Urine RBC (Auto) Blood Type O POSITIVE Antibody Screen NEGATIVE 02/02/17 05:25 WBC RBC Hgb Hct MCV MCH MCHC RDW Plt Count Seg Neutrophils % Lymphocytes % Monocytes % Eosinophils % Basophils % Absolute Neutrophils Absolute Lymphocytes Absolute Monocytes Absolute Eosinophils Absolute Basophils Sodium Potassium Chloride Carbon Dioxide Anion Gap BUN Creatinine Est GFR ( Amer) Est GFR (Non-Af Amer) Glucose Calcium Magnesium 1.5 L Urine Color Urine Appearance Urine pH Ur Specific [place] Urine Protein Urine Glucose (UA) Urine Ketones Urine Blood Urine Nitrite Ur Leukocyte Esterase Urine RBC (Auto) Blood Type Antibody Screen Impressions: Chest X-Ray 02/01/17 14:58 IMPRESSION: No significant interval change. No acute changes. Other findings as noted above Fluoroscopy 02/02/17 00:00 IMPRESSION: IMAGE(S) OBTAINED DURING PROCEDURE. Hip X-Ray 02/02/17 00:00 IMPRESSION: IMAGE(S) OBTAINED DURING PROCEDURE. Assessment & Plan - Diagnosis (1) Hip fracture Qualifiers: Encounter type: initial encounter Fracture type: closed Laterality: left Qualified Code(s): S72.002A - Fracture of unspecified part of neck of left femur, initial encounter for closed fracture Is this a current diagnosis for this admission?: Yes Plan: Plan for surgery today. Defer this and all complications related to this to the surgical team. (2) Acute and chronic respiratory failure with hypoxia Is this a current diagnosis for this admission?: Yes Plan: Patient normally uses 2 1/2 L of nasal cannula Patient has known chronic emphysema (3) Gastroesophageal reflux disease Qualifiers: Esophagitis presence: without esophagitis Qualified Code(s): K21.9 - Gastro -esophageal reflux disease without esophagitis Is this a current diagnosis for this admission?: Yes Plan: Continue PPI (4) Hypertension Qualifiers: Hypertension type: essential hypertension Qualified Code(s): I10 - Essential (primary) hypertension Is this a current diagnosis for this admission?: Yes Plan: Continue lisinopril (5) Osteoarthritis Qualifiers: Osteoarthritis location: unspecified site Osteoarthritis type: unspecified Qualified Code(s): M19.90 - Unspecified osteoarthritis, unspecified site Is this a current diagnosis for this admission?: Yes (6) Seasonal allergic rhinitis Qualifiers: Allergic rhinitis trigger: unspecified Qualified Code(s): J30.2 - Other seasonal allergic rhinitis Is this a current diagnosis for this admission?: No (7) COPD (chronic obstructive pulmonary disease) Qualifiers: COPD type: emphysema Emphysema type: unspecified Qualified Code(s): J43.9 - Emphysema, unspecified Is this a current diagnosis for this admission?: Yes Plan: No acute exacerbation at this time. Continue home Symbicort. prn treatments o2 - Time Time Spent with patient: 15-24 minutes Anticipated discharge: Acute Rehab
--- NOTE | 2017-02-02 16:28 | PDOC CONSULTATION ---
Consultation Consult Date: 02/01/17 Consult reason:: Left hip fracture History of Present Illness Admission Date/PCP: 02/01/17 16:35 ROBLES FINNEGAN MD Patient complains of: Left hip pain and inability to weight-bear History of Present Illness: 66-year-old female with a COPD requiring oxygen who yesterday fell and injured her hip and was having pain in the hip when she had another fall at that point she can get up or ambulate. EMS was called where she was brought to the ER and evaluated and confirmed to have a left basicervical hip fracture. Patient complains of left groin hip pain and pain with range of motion. Describes the pain 5 out of 5 with motion. Denies any numbness or tingling or paresthesias. Patient has history of fragility fractures including rami fractures. Past Medical History Cardiac Medical History: Reports: Hypertension Denies: Coronary Artery Disease, Myocardial Infarction Pulmonary Medical History: Reports: Chronic Obstructive Pulmonary Disease (COPD) , Pneumonia Denies: Asthma, Bronchitis, Tuberculosis Neurological Medical History: Denies: Seizures Malignancy Medical History: Reports: Breast Cancer GI Medical History: Denies: Hepatitis, Hiatal Hernia Musculoskeltal Medical History: Reports: Arthritis Psychiatric Medical History: Reports: Depression Hematology: Denies: Anemia, Sickle Cell Disease Past Surgical History Past Surgical History: Reports: Hysterectomy, Mastectomy - LUMPECTOMY, Orthopedic Surgery - Back surgery 2, Tubal Ligation Denies: Amputation, Pacemaker Social History Smoking Status: Former Smoker Last Time Smoked: 5 years Frequency of Alcohol Use: Social Hx Recreational Drug Use: No Drugs: None Hx Prescription Drug Abuse: No - Advance Directive Resuscitation Status: Full Code Family History Family History: Hypertension - Father, Malignancy - Mother with lung cancer Parental Family History Reviewed: No Children Family History Reviewed: No Sibling(s) Family History Reviewed.: No Medication/Allergy Home Medications: Albuterol Sulfate [Proair HFA] 2 puff IN Q6HP PRN 02/01/17 Aspirin [Aspirin EC] 81 mg PO DAILY 02/01/17 Budesonide/Formoterol Fumarate [Symbicort 160-4.5 Mcg Inhaler] 2 puff IN HSP PRN 02/01/17 Budesonide/Formoterol Fumarate [Symbicort 160-4.5 Mcg Inhaler] 2 puff IN QAM Cetirizine HCl [Zyrtec 10 mg Tablet] 10 mg PO DAILY 02/01/17 Citalopram Hydrobromide [Celexa] 40 mg PO DAILY 02/01/17 Lisinopril [Zestril] 20 mg PO DAILY 02/01/17 Lorazepam [Ativan 0.5 mg Tablet] 0.5 mg PO BIDP PRN 02/01/17 Meloxicam [Mobic] 15 mg PO DAILY 02/01/17 Multivit-Min/Iron/Folic/Lutein [Centrum Silver Women Tablet] 1 tab PO DAILY Pantoprazole Sodium [Protonix] 40 mg PO DAILY 02/01/17 Tiotropium [place] [Spiriva] 2 puff IN DAILYP PRN 02/01/17 Allergies/Adverse Reactions: No Known Allergies Allergy (Verified 02/01/17 16:00) Physical Exam Vital Signs: Temp Pulse Resp BP Pulse Ox 36.9 C 85 18 120/58 L 100 02/02/17 15:13 02/02/17 15:28 02/02/17 15:28 02/02/17 15:28 02/02/17 15:28 Intake & Output 02/01/17 02/02/17 02/03/17 06:59 06:59 06:59 Intake Total 370 500 Output Total 740 500 Balance -370 0 Weight 54.3 kg General appearance: PRESENT: no acute distress, thin Eye exam: PRESENT: EOMI, PERRLA. ABSENT: nystagmus, periorbital swelling Neck exam: ABSENT: lymphadenopathy, thyromegaly Respiratory exam: PRESENT: symmetrical, unlabored, other - On 2 L of oxygen Pulses: PRESENT: +2 pedal pulses bilateral Vascular exam: PRESENT: normal capillary refill GI/Abdominal exam: PRESENT: soft. ABSENT: ascites, distended, firm, guarding, organolmegaly, tenderness Adult Front & Back Image: 1 - Left lower extremity is shortened and externally rotated. She has tenderness to palpation over the groin. She has pain with attempted range of motion. She is neurovascular intact distally. No other extremity injury or pain. Results Laboratory Results: 02/02/17 05:25 02/02/17 05:25 02/01/17 02/01/17 02/01/17 16:45 18:53 18:53 WBC 8.8 RBC 3.57 L Hgb 12.2 Hct 33.8 L MCV 95 MCH 34.2 H MCHC 36.0 RDW 12.7 Plt Count 258 Seg Neutrophils % Lymphocytes % Monocytes % Eosinophils % Basophils % Absolute Neutrophils Absolute Lymphocytes Absolute Monocytes Absolute Eosinophils Absolute Basophils Sodium 131.1 L Potassium 4.1 Chloride 94 L Carbon Dioxide 27 Anion Gap 10 BUN 5 L Creatinine 0.61 Est GFR ( Amer) > 60 Est GFR (Non-Af Amer) > 60 Glucose 107 Calcium 9.6 Magnesium Urine Color YELLOW Urine Appearance CLEAR Urine pH 7.0 Ur Specific [place] 1.006 Urine Protein NEGATIVE Urine Glucose (UA) NEGATIVE Urine Ketones NEGATIVE Urine Blood NEGATIVE Urine Nitrite NEGATIVE Ur Leukocyte Esterase NEGATIVE Urine RBC (Auto) 0 Blood Type Antibody Screen 02/01/17 02/02/17 02/02/17 18:53 05:25 05:25 WBC 6.0 RBC 3.41 L Hgb 11.6 L Hct 32.6 L MCV 96 MCH 34.0 H MCHC 35.5 RDW 12.7 Plt Count 229 Seg Neutrophils % 69.7 Lymphocytes % 13.0 Monocytes % 10.7 Eosinophils % 5.8 Basophils % 0.8 Absolute Neutrophils 4.2 Absolute Lymphocytes 0.8 Absolute Monocytes 0.6 Absolute Eosinophils 0.3 Absolute Basophils 0.0 Sodium 131.9 L Potassium 4.6 Chloride 96 L Carbon Dioxide 29 Anion Gap 7 BUN 9 Creatinine 0.72 Est GFR ( Amer) > 60 Est GFR (Non-Af Amer) > 60 Glucose 105 Calcium 9.8 Magnesium Urine Color Urine Appearance Urine pH Ur Specific [place] Urine Protein Urine Glucose (UA) Urine Ketones Urine Blood Urine Nitrite Ur Leukocyte Esterase Urine RBC (Auto) Blood Type O POSITIVE Antibody Screen NEGATIVE 02/02/17 05:25 WBC RBC Hgb Hct MCV MCH MCHC RDW Plt Count Seg Neutrophils % Lymphocytes % Monocytes % Eosinophils % Basophils % Absolute Neutrophils Absolute Lymphocytes Absolute Monocytes Absolute Eosinophils Absolute Basophils Sodium Potassium Chloride Carbon Dioxide Anion Gap BUN Creatinine Est GFR ( Amer) Est GFR (Non-Af Amer) Glucose Calcium Magnesium 1.5 L Urine Color Urine Appearance Urine pH Ur Specific [place] Urine Protein Urine Glucose (UA) Urine Ketones Urine Blood Urine Nitrite Ur Leukocyte Esterase Urine RBC (Auto) Blood Type Antibody Screen Impressions: Chest X-Ray 02/01/17 14:58 IMPRESSION: No significant interval change. No acute changes. Other findings as noted above Status: Image reviewed by me Assessment & Plan - Plan Summary Plan Summary: 66-year-old patient with COPD with a left basicervical hip fracture. Patient will be bedrest and placed the [place]. She needs pain control. Plan to proceed with cephalo-medullary nailing of her left hip fracture tomorrow in the a.m. Discussed the risk and benefits and the patient agreed to consent and proceed.
[2017-02-02] MEDS ORDERED: RINGERS SOLUTION,LACTATED 1,000 ML IV PRN (16:55)
[2017-02-02] MEDS ORDERED: OXYCODONE-ACETAMINOPHEN 5-325 MG TABLET PO PRN (16:56)
[2017-02-02] MEDS: CEFAZOLIN 2 GM/D5W RTU 2 GM/50 ML RTUPB IV SCH (17:49)
[2017-02-03] MEDS: CEFAZOLIN 2 GM/D5W RTU 2 GM/50 ML RTUPB IV SCH (02:29)
[2017-02-03] MEDS: KETOROLAC TROMETHAMINE INJ/PF 30 MG/1 ML SDV IV PRN (02:31)
[2017-02-03 04:45] LABS: HEMATOCRIT 28.7 % (36.0-47.0); HEMOGLOBIN 10.3 g/dL (12.0-15.5); HGB HCT DIFFERENCE 2.2; MEAN CORPUSCULAR HEMOGLOBIN 34.6 pg (27.0-33.4); MEAN CORPUSCULAR VOLUME 96 fl (80-97); RED BLOOD COUNT 2.99 10^6/uL (3.72-5.28); RED CELL DISTRIBUTION WIDTH 12.5 % (11.5-14.0)
[2017-02-03 05:27] LABS: BAND NEUTROPHILS % (MANUAL) 6 % (3-5); BASOPHILS % (MANUAL) 0 % (0-2); EOSINOPHILS % (MANUAL) 0 % (0-6); LYMPHOCYTES % (MANUAL) 7 % (13-45); TOTAL CELLS COUNTED 100
[2017-02-03 05:29] LABS: PLATELET CLUMPS PRESENT; RBC MORPHOLOGY COMMENT NORMO-CYTIC/CHROMIC
[2017-02-03 05:30] LABS: TOXIC GRANULATION SLIGHT
[2017-02-03] MEDS: LANSOPRAZOLE 30 MG TAB.RAP.DR PO SCH (07:35)
--- NOTE | 2017-02-03 08:58 | RADIOLOGY REPORT (SQ) ---
EXAM DESCRIPTION: HIP LEFT AP/LATERAL COMPLETED DATE/TIME: 02/03/2017 7:29 am REASON FOR STUDY: FOLLOW UP AFTER SURGERY 02/02 COMPARISON: 02/01/2017 NUMBER OF VIEWS: Two view(s). TECHNIQUE: Digital radiographic images of the left hip post-procedure. LIMITATIONS: None. FINDINGS: BONES: No worrisome or unexpected findings post-procedure. Chronic Left pubic fractures. DEVICE: [place] and hip compression screw fixation of femoral neck fracture. SOFT TISSUES: No worrisome findings. Expected postoperative soft tissue changes. IMPRESSION: SATISFACTORY POSTOPERATIVE LEFT HIP. TECHNICAL DOCUMENTATION: JOB ID: [id number] [email or web address]- All Rights Reserved
[2017-02-03] MEDS: BUDESONIDE/FORMOTEROL 160-4.5 MCG 60 PUFF/6 GM MDI IH SCH ×2 (09:10→21:52)
[2017-02-03] MEDS: MELOXICAM 15 MG TABLET PO SCH (09:10)
[2017-02-03] MEDS: SILVER SULFADIAZINE 1% CREAM 25 GM TP SCH (09:10)
[2017-02-03] MEDS: MULTIVITAMIN TABLET PO SCH (09:11)
[2017-02-03] MEDS: CITALOPRAM HYDROBROMIDE 20 MG TABLET PO SCH (09:12)
[2017-02-03] MEDS: FOLIC ACID 1 MG TABLET PO SCH (09:12)
[2017-02-03] MEDS: LISINOPRIL 10 MG TABLET PO SCH (09:13)
[2017-02-03] MEDS: DOCUSATE SODIUM 100 MG CAPSULE PO SCH ×2 (09:13→17:18)
[2017-02-03] MEDS: CETIRIZINE 10 MG TABLET PO SCH (09:13)
[2017-02-03] MEDS: THIAMINE HCL 100 MG TABLET PO SCH (09:13)
[2017-02-03] MEDS ORDERED: SENNOSIDES/DOCUSATE 8.6-50 MG 1 EACH TABLET PO ONE (13:00)
[2017-02-03] MEDS ORDERED: MAGNESIUM HYDROXIDE SUSP 30 ML UDCUP PO ONE (13:00)
--- NOTE | 2017-02-03 16:12 | PDOC PROGRESS REPORT ---
Subjective Progress Note for:: 02/03/17 Subjective:: She reports that she has passed flatus but has yet to have a bowel movement. She reports she is eating without difficulty. Patient reports her hip pain is well controlled. She reports she is feeling otherwise well. Patient denies chest pain, shortness of breath, abdominal pain, nausea, vomiting , fevers, chills, diarrhea, constipation, headache, new onset weakness. Physical Exam Vital Signs: Temp Pulse Resp BP Pulse Ox 97.8 F 80 18 129/64 H 97 02/03/17 07:47 02/03/17 07:47 02/03/17 07:47 02/03/17 07:47 02/03/17 07:47 Intake & Output 02/02/17 02/03/17 02/04/17 06:59 06:59 06:59 Intake Total 370 3640 Output Total 740 2350 Balance -370 1290 Weight 54.3 kg 64.7 kg Exam: General: Awake alert and orientedx3, no acute respiratory distress HEENT: AT/NC, PERRL, EOMI, oropharynx is moist, pink, no scleral icterus, no conjunctival injection Neck: No JVD, trachea midline Chest: Prolonged expiratory phase, clear to auscultation bilaterally, no wheezes rhonchi or rales CV: Regular rate and rhythm, normal S1 and S2, no murmur, rub, or gallop Abdomen: Soft, nontender to palpation, nondistended, active bowel sounds; no rebound, rigidity, or guarding Extremities: No cyanosis; mild clubbing; trace bilateral lower extremity edema Neuro: Cranial nerves II through XII are grossly intact without focal deficits; awake alert and orientedx3 Psych: Normal mood and affect Results Laboratory Results: 02/03/17 03:53 02/02/17 05:25 02/03/17 03:53 WBC 7.0 RBC 2.99 L Hgb 10.3 L Hct 28.7 L MCV 96 MCH 34.6 H MCHC 36.0 RDW 12.5 Plt Count 211 Seg Neutrophils % Not Reportable Lymphocytes % Not Reportable Monocytes % Not Reportable Eosinophils % Not Reportable Basophils % Not Reportable Absolute Neutrophils Not Reportable Absolute Lymphocytes Not Reportable Absolute Monocytes Not Reportable Absolute Eosinophils Not Reportable Absolute Basophils Not Reportable 02/01/17 16:45 Catheterized Urine Urine Culture - Final NO GROWTH 2 DAYS Impressions: Chest X-Ray 02/01/17 14:58 IMPRESSION: No significant interval change. No acute changes. Other findings as noted above Fluoroscopy 02/02/17 00:00 IMPRESSION: IMAGE(S) OBTAINED DURING PROCEDURE. Hip X-Ray 02/03/17 00:00 IMPRESSION: SATISFACTORY POSTOPERATIVE LEFT HIP. Assessment & Plan - Diagnosis (1) Hip fracture Qualifiers: Encounter type: initial encounter Fracture type: closed Laterality: left Qualified Code(s): S72.002A - Fracture of unspecified part of neck of left femur, initial encounter for closed fracture Is this a current diagnosis for this admission?: Yes Plan: Patient underwent cephalic medullary nailing of her left hip. She is postoperative day #1. Defer this and all complications related to this to the surgical team. Patient worked with physical therapy today. Discharge planning has been consulted for rehabilitation placement. (2) Acute and chronic respiratory failure with hypoxia Is this a current diagnosis for this admission?: Yes Plan: Patient normally uses 2 1/2 L of nasal cannula Patient has known chronic emphysema She appears to be at her baseline. (3) Gastroesophageal reflux disease Qualifiers: Esophagitis presence: without esophagitis Qualified Code(s): K21.9 - Gastro -esophageal reflux disease without esophagitis Is this a current diagnosis for this admission?: Yes Plan: Continue PPI (4) Hypertension Qualifiers: Hypertension type: essential hypertension Qualified Code(s): I10 - Essential (primary) hypertension Is this a current diagnosis for this admission?: Yes Plan: Well-controlled Continue lisinopril Selected Entries 02/03/17 07:47 Blood Pressure 129/64 H (5) Osteoarthritis Qualifiers: Osteoarthritis location: unspecified site Osteoarthritis type: unspecified Qualified Code(s): M19.90 - Unspecified osteoarthritis, unspecified site Is this a current diagnosis for this admission?: Yes Plan: On Mobic (6) Seasonal allergic rhinitis Qualifiers: Allergic rhinitis trigger: unspecified Is this a current diagnosis for this admission?: No (7) COPD (chronic obstructive pulmonary disease) Qualifiers: COPD type: emphysema Emphysema type: unspecified Qualified Code(s): J43.9 - Emphysema, unspecified Is this a current diagnosis for this admission?: Yes Plan: No acute exacerbation at this time. Continue home Symbicort. prn treatments o2 chronically both here in the hospital and at home (8) Acute blood loss anemia Is this a current diagnosis for this admission?: Yes Plan: Secondary to surgery Continue to follow and will replete if hemoglobin drops below 8 (9) Hyponatremia Is this a current diagnosis for this admission?: Yes Plan: Patient appears to have chronic hyponatremia with her baseline being approximately 130-131. 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 (10) Hypomagnesemia Is this a current diagnosis for this admission?: Yes Plan: Replete and recheck (11) Osteoporosis Qualifiers: Osteoporosis type: unspecified Presence of current pathological fracture: with current pathological fracture Encounter type: initial encounter Qualified Code(s): M80.00XA - Age-related osteoporosis with current pathological fracture, unspecified site, initial encounter for fracture Is this a current diagnosis for this admission?: Yes Plan: If patient has not completed a course of bisphosphonates, recommend this as an outpatient. - Time Time Spent with patient: 25-34 minutes
[2017-02-03] MEDS: OXYCODONE-ACETAMINOPHEN 5-325 MG TABLET PO PRN (17:22)
--- NOTE | 2017-02-03 19:38 | PDOC PROGRESS REPORT ---
Subjective Progress Note for:: 02/03/17 Subjective:: Patient resting comfortably in bed. States pain is adequately controlled and improved since yesterday. She states she also worked with therapy. Physical Exam Vital Signs: Temp Pulse Resp BP Pulse Ox 37.5 C 92 20 158/81 H 100 02/03/17 15:50 02/03/17 15:50 02/03/17 15:50 02/03/17 15:50 02/03/17 15:50 Intake & Output 02/02/17 02/03/17 02/04/17 06:59 06:59 06:59 Intake Total 370 3640 1520 Output Total 740 2350 200 Balance -370 1290 1320 Weight 54.3 kg 64.7 kg General appearance: PRESENT: no acute distress Adult Front & Back Image: 1 - There is sanguinous shadowing of the dressing but overall intact. Neurovascularly intact distally. Results Laboratory Results: 02/03/17 03:53 02/02/17 05:25 02/03/17 03:53 WBC 7.0 RBC 2.99 L Hgb 10.3 L Hct 28.7 L MCV 96 MCH 34.6 H MCHC 36.0 RDW 12.5 Plt Count 211 Seg Neutrophils % Not Reportable Lymphocytes % Not Reportable Monocytes % Not Reportable Eosinophils % Not Reportable Basophils % Not Reportable Absolute Neutrophils Not Reportable Absolute Lymphocytes Not Reportable Absolute Monocytes Not Reportable Absolute Eosinophils Not Reportable Absolute Basophils Not Reportable 02/01/17 16:45 Catheterized Urine Urine Culture - Final NO GROWTH 2 DAYS Impressions: Chest X-Ray 02/01/17 14:58 IMPRESSION: No significant interval change. No acute changes. Other findings as noted above Fluoroscopy 02/02/17 00:00 IMPRESSION: IMAGE(S) OBTAINED DURING PROCEDURE. Hip X-Ray 02/03/17 00:00 IMPRESSION: SATISFACTORY POSTOPERATIVE LEFT HIP. Status: Image reviewed by me - Today showing fixation of the left basicervical hip fracture. No change in alignment and no violation of the joint. Assessment & Plan - Plan Summary Plan Summary: Patient is 5 POD #1 from cephalo-medullary nailing of the left basicervical hip fracture. Continue physical therapy Continue pain control Continue DVT prophylaxis Awaiting fdc facility placement
[2017-02-03] MEDS: RIVAROXABAN 10 MG TABLET PO SCH (21:51)
[2017-02-03] MEDS: SENNOSIDES/DOCUSATE 8.6-50 MG 1 EACH TABLET PO SCH (21:51)
[2017-02-04 04:29] LABS: ABSOLUTE EOSINOPHILS # (AUTO) 0.3 10^3/uL (0.0-0.6); ABSOLUTE LYMPHOCYTES (AUTO) 0.9 10^3/uL (0.5-4.7); ABSOLUTE MONOCYTES (AUTO) 0.7 10^3/uL (0.1-1.4); ABSOLUTE NEUT (AUTO) 4.8 10^3/uL (1.7-8.2); BASOPHILS % (AUTO) 0.7 % (0-2); EOSINOPHILS % (AUTO) 4.6 % (0-6); HEMATOCRIT 27.3 % (36.0-47.0); HEMOGLOBIN 9.9 g/dL (12.0-15.5); HGB HCT DIFFERENCE 2.4; LYMPHOCYTES % (AUTO) 13.1 % (13-45); MEAN CORPUSCULAR HEMOGLOBIN 34.6 pg (27.0-33.4); MEAN CORPUSCULAR HGB CONC 36.4 g/dL (32.0-36.0); MEAN CORPUSCULAR VOLUME 95 fl (80-97); MONOCYTES % (AUTO) 10.6 % (3-13); RED BLOOD COUNT 2.87 10^6/uL (3.72-5.28); RED CELL DISTRIBUTION WIDTH 12.6 % (11.5-14.0); WHITE BLOOD COUNT 6.8 10^3/uL (4.0-10.5)
[2017-02-04 04:59] LABS: ANION GAP 6 (5-19); BLOOD UREA NITROGEN 10 mg/dL (7-20); CALCIUM 9.2 mg/dL (8.4-10.2); CARBON DIOXIDE 30 mmol/L (22-30); CHLORIDE 100 mmol/L (98-107); CREATININE RESULT 0.62 mg/dL (0.52-1.25); GLUCOSE 104 mg/dL (75-110); MAGNESIUM 1.6 mg/dL (1.6-2.3); POTASSIUM 4.2 mmol/L (3.6-5.0); SODIUM 136.4 mmol/L (137-145)
[2017-02-04] MEDS: LANSOPRAZOLE 30 MG TAB.RAP.DR PO SCH (07:40)
[2017-02-04] MEDS: OXYCODONE-ACETAMINOPHEN 5-325 MG TABLET PO PRN ×4 (07:44→22:00)
[2017-02-04] MEDS: BUDESONIDE/FORMOTEROL 160-4.5 MCG 60 PUFF/6 GM MDI IH SCH ×2 (10:08→21:50)
[2017-02-04] MEDS: SILVER SULFADIAZINE 1% CREAM 25 GM TP SCH (10:08)
[2017-02-04] MEDS: LISINOPRIL 10 MG TABLET PO SCH (10:09)
[2017-02-04] MEDS: CITALOPRAM HYDROBROMIDE 20 MG TABLET PO SCH (10:09)
[2017-02-04] MEDS: THIAMINE HCL 100 MG TABLET PO SCH (10:11)
[2017-02-04] MEDS: DOCUSATE SODIUM 100 MG CAPSULE PO SCH ×2 (10:11→17:28)
[2017-02-04] MEDS: CETIRIZINE 10 MG TABLET PO SCH (10:11)
[2017-02-04] MEDS: MELOXICAM 15 MG TABLET PO SCH (10:12)
[2017-02-04] MEDS: MULTIVITAMIN TABLET PO SCH (10:12)
[2017-02-04] MEDS: FOLIC ACID 1 MG TABLET PO SCH (10:12)
[2017-02-04] MEDS ORDERED: ONDANSETRON HCL INJ/PF 4 MG/2 ML SDV IV PRN (11:30)
[2017-02-04] MEDS ORDERED: IPRATROPIUM/ALBUTEROL 0.5-2.5 MG/3 ML AMPUL NEB PRN (11:30)
--- NOTE | 2017-02-04 12:24 | PDOC TRANSFER SUMMARY ---
General - Admit/Disc Date/PCP Admission Date/Primary Care Provider: 02/01/17 16:35 ROBLES FINNEGAN MD Discharge Date: 02/04/17 - Discharge Diagnosis (1) Hip fracture Is this a current diagnosis for this admission?: Yes Summary: Left hip fracture. Status post intramedullary nailing. (2) Acute blood loss anemia Is this a current diagnosis for this admission?: Yes Summary: Secondary to surgery. Did not require blood transfusion. (3) COPD (chronic obstructive pulmonary disease) Is this a current diagnosis for this admission?: Yes (4) Osteoporosis Is this a current diagnosis for this admission?: Yes (5) Acute and chronic respiratory failure with hypoxia Is this a current diagnosis for this admission?: Yes Summary: Secondary to COPD. Patient is chronic O2 dependent COPD (8) Gastroesophageal reflux disease Is this a current diagnosis for this admission?: Yes (9) Hypertension Is this a current diagnosis for this admission?: Yes (10) Hyponatremia Is this a current diagnosis for this admission?: Yes (11) Osteoarthritis Is this a current diagnosis for this admission?: Yes (12) Seasonal allergic rhinitis Is this a current diagnosis for this admission?: No - Additional Information Resuscitation Status: Full Code Discharge Diet: Cardiac Discharge Activity: Activity As Tolerated Home Medications: Albuterol Sulfate [Proair HFA] 2 puff IN Q6HP PRN 02/01/17 Aspirin [Aspirin EC] 81 mg PO DAILY 02/01/17 Budesonide/Formoterol Fumarate [Symbicort 160-4.5 Mcg Inhaler] 2 puff IN QAM Cetirizine HCl [Zyrtec 10 mg Tablet] 10 mg PO DAILY 02/01/17 Citalopram Hydrobromide [Celexa] 40 mg PO DAILY 02/01/17 Lisinopril [Zestril] 20 mg PO DAILY 02/01/17 Meloxicam [Mobic] 15 mg PO DAILY 02/01/17 Multivit-Min/Iron/Folic/Lutein [Centrum Silver Women Tablet] 1 tab PO DAILY Pantoprazole Sodium [Protonix] 40 mg PO DAILY 02/01/17 Tiotropium [place] [Spiriva] 2 puff IN DAILYP PRN 02/01/17 Docusate Sodium [Colace 100 mg Capsule] 100 mg PO BID capsule 02/04/17 Folic Acid [Folvite 1 mg Tablet] 1 mg PO DAILY tablet 02/04/17 Ipratropium/Albuterol Sulfate [Duoneb 3 ml Ampul] 3 ml NEB RTQ6HP PRN vial.neb 02/04/17 Lorazepam [Ativan 0.5 mg Tablet] 0.5 mg PO BIDP PRN #10 tablet 02/04/17 Oxycodone HCl/Acetaminophen [Percocet 5-325 mg Tablet] 1 tab PO Q4HP PRN #20 tablet 02/04/17 Rivaroxaban [Xarelto 10 mg Tablet] 10 mg PO QHS tablet 02/04/17 Thiamine HCl [Thiamine 100 mg Tablet] 100 mg PO DAILY tablet 02/04/17 History of Present Illness Admission Date/PCP: 02/01/17 16:35 ROBLES FINNEGAN MD History of Present Illness: 66-year-old female with a COPD requiring oxygen who yesterday fell and injured her hip and was having pain in the hip when she had another fall at that point she can get up or ambulate. EMS was called where she was brought to the ER and evaluated and confirmed to have a left basicervical hip fracture. Patient complains of left groin hip pain and pain with range of motion. Describes the pain 5 out of 5 with motion. Denies any numbness or tingling or paresthesias. Patient has history of fragility fractures including rami fractures. Hospital Course Hospital Course: 66-year-old female with a history of O2 dependent COPD who tripped and fell and fractured her left hip. Patient was admitted to the hospital and underwent intramedullary nailing with good results. Patient has been working with physical therapy but needs continued rehab. The patient has a history of COPD which is been stable during this hospitalization. She has also been noted to have hyponatremia but was asymptomatic with this. The patient did have a decrease in her hemoglobin but not low enough to require a transfusion. She has reached the maximum benefit here in the hospital and is to be discharged to a skilled nurse facility when a bed becomes available. Patient has been accepted at [facility]. Patient has been started on Xarelto postoperatively for DVT prevention. Physical Exam Vital Signs: Temp Pulse Resp BP Pulse Ox 98.7 F 97 16 96/61 L 97 02/04/17 11:46 02/04/17 11:46 02/04/17 11:46 02/04/17 11:46 02/04/17 11:46 Intake & Output 02/03/17 02/04/17 02/05/17 06:59 06:59 06:59 Intake Total 3640 2000 Output Total 2350 1300 Balance 1290 700 Weight 64.7 kg 67.4 kg General appearance: PRESENT: no acute distress Eye exam: PRESENT: conjunctiva pink. ABSENT: scleral icterus Mouth exam: PRESENT: moist, tongue midline Neck exam: ABSENT: JVD Respiratory exam: PRESENT: clear to auscultation lainey. ABSENT: rales, rhonchi, wheezes Cardiovascular exam: PRESENT: RRR. ABSENT: diastolic murmur, rubs, systolic murmur GI/Abdominal exam: PRESENT: normal bowel sounds, soft. ABSENT: distended, guarding, mass, organolmegaly, rebound, tenderness Extremities exam: ABSENT: calf tenderness, clubbing, pedal edema Neurological exam: PRESENT: alert, awake, oriented to person, oriented to place , oriented to time, oriented to situation, CN II-XII grossly intact. ABSENT: motor sensory deficit Psychiatric exam: PRESENT: appropriate affect Skin exam: PRESENT: dry, intact, warm. ABSENT: cyanosis, rash Results Laboratory Results: 02/04/17 03:45 02/04/17 03:45 02/04/17 02/04/17 03:45 03:45 WBC 6.8 RBC 2.87 L Hgb 9.9 L Hct 27.3 L MCV 95 MCH 34.6 H MCHC 36.4 H RDW 12.6 Plt Count 204 Seg Neutrophils % 71.0 Lymphocytes % 13.1 Monocytes % 10.6 Eosinophils % 4.6 Basophils % 0.7 Absolute Neutrophils 4.8 Absolute Lymphocytes 0.9 Absolute Monocytes 0.7 Absolute Eosinophils 0.3 Absolute Basophils 0.0 Sodium 136.4 L Potassium 4.2 Chloride 100 Carbon Dioxide 30 Anion Gap 6 BUN 10 Creatinine 0.62 Est GFR ( Amer) > 60 Est GFR (Non-Af Amer) > 60 Glucose 104 Calcium 9.2 Magnesium 1.6 02/01/17 16:45 Catheterized Urine Urine Culture - Final NO GROWTH 2 DAYS Impressions: Chest X-Ray 02/01/17 14:58 IMPRESSION: No significant interval change. No acute changes. Other findings as noted above Fluoroscopy 02/02/17 00:00 IMPRESSION: IMAGE(S) OBTAINED DURING PROCEDURE. Hip X-Ray 02/03/17 00:00 IMPRESSION: SATISFACTORY POSTOPERATIVE LEFT HIP. Transfer Plan - Disposition Transfer Plan: Transfer to [facility] skilled nurse facility when a bed becomes available for rehab. - Time Spent with Patient Time spent with patient: Greater than 30 Minutes Qualifiers PATEINT BEING DISCHARGED WITH ANY OF THE FOLLOWING DIAGNOSIS?: No Plan Discharge Plan: Transfer to [facility] skilled nurse facility when a bed becomes available. Time Spent: Greater than 30 Minutes
[2017-02-04] MEDS ORDERED: LACTULOSE SYRUP 20 GM/30 ML UDCUP PO PRN (12:25)
[2017-02-04] MEDS ORDERED: NA PHOS,M-B/NA PHOS,DI-BA (ADULT) 133 ML ENEMA PR ONE (15:30)
[2017-02-04] MEDS: SENNOSIDES/DOCUSATE 8.6-50 MG 1 EACH TABLET PO SCH (21:34)
[2017-02-04] MEDS: RIVAROXABAN 10 MG TABLET PO SCH (21:50)
[2017-02-04] MEDS ORDERED: NA PHOS,M-B/NA PHOS,DI-BA (ADULT) 133 ML ENEMA PR PRN (22:00)
[2017-02-05 09:00] VITALS: BP 137/81
[2017-02-05] MEDS: BUDESONIDE/FORMOTEROL 160-4.5 MCG 60 PUFF/6 GM MDI IH SCH (09:33)
[2017-02-05] MEDS: OXYCODONE-ACETAMINOPHEN 5-325 MG TABLET PO PRN (09:34)
[2017-02-05] MEDS: CETIRIZINE 10 MG TABLET PO SCH (09:35)
[2017-02-05] MEDS: LISINOPRIL 10 MG TABLET PO SCH (09:35)
[2017-02-05] MEDS: DOCUSATE SODIUM 100 MG CAPSULE PO SCH (09:35)
[2017-02-05] MEDS: THIAMINE HCL 100 MG TABLET PO SCH (09:35)
[2017-02-05] MEDS: CITALOPRAM HYDROBROMIDE 20 MG TABLET PO SCH (09:35)
[2017-02-05] MEDS: MULTIVITAMIN TABLET PO SCH (09:35)
[2017-02-05] MEDS: FOLIC ACID 1 MG TABLET PO SCH (09:35)
[2017-02-05] MEDS: LANSOPRAZOLE 30 MG TAB.RAP.DR PO SCH (09:36)
[2017-02-05] MEDS: MELOXICAM 15 MG TABLET PO SCH (09:36)
[2017-02-05] MEDS: SILVER SULFADIAZINE 1% CREAM 25 GM TP SCH (09:39)
--- NOTE | 2017-02-05 13:00 | PULMONARY FUNCTION TEST ---
DATE OF SERVICE: 02/01/2017 THE VITAL CAPACITY IS MODERATELY DECREASED. THE EXPIRATORY FLOW RATES ARE SEVERELY DECREASED. THE FEV1/VC IS 33%, PREDICTED: 80% IMPRESSION: GOOD PATIENT EFFORT. VERY SEVERE OBSTRUCTIVE DEFECT. CC: JOVANNI HAILE MD > [facility]
== END 2017-02-05 13:03 | DRG 480 ==
LOC: ER 14:12 → UNDOADMIN 15:35 → EH 15:35 → 5 16:35 → EH 17:17 → 5 17:17
PROVIDERS: ADMIT Family Medicine; ATTEND Family Medicine
PROC: 3E0234Z Introduction of Serum, Toxoid and Vaccine into Muscle, Percutaneous Approach (ICD-10-PCS; 2017-02-01)
PROC: 3E0F73Z Introduction of Anti-inflammatory into Respiratory Tract, Via Natural or Artificial Opening (ICD-10-PCS; 2017-02-01)
PROC: BQ14ZZZ Fluoroscopy of Left Femur (ICD-10-PCS; 2017-02-02)
PROC: 0QH706Z Insertion of Intramedullary Internal Fixation Device into Left Upper Femur, Open Approach (ICD-10-PCS; principal; 2017-02-02 13:00)
DX: S72.002A Fracture of unspecified part of neck of left femur, initial encounter for closed fracture (principal); J96.21 Acute and chronic respiratory failure with hypoxia; D62 Acute posthemorrhagic anemia; E87.1 Hypo-osmolality and hyponatremia; W01.0XXA Fall on same level from slipping, tripping and stumbling without subsequent striking against object, initial encounter; J43.9 Emphysema, unspecified; M81.0 Age-related osteoporosis without current pathological fracture; Z99.81 Dependence on supplemental oxygen; K21.9 Gastro-esophageal reflux disease without esophagitis; I10 Essential (primary) hypertension; M19.90 Unspecified osteoarthritis, unspecified site; J30.2 Other seasonal allergic rhinitis; F32.9 Major depressive disorder, single episode, unspecified; E83.42 Hypomagnesemia; F41.9 Anxiety disorder, unspecified; S80.211A Abrasion, right knee, initial encounter; S80.212A Abrasion, left knee, initial encounter; Z79.82 Long term (current) use of aspirin; Z79.899 Other long term (current) drug therapy; Z85.3 Personal history of malignant neoplasm of breast; Z90.710 Acquired absence of both cervix and uterus; Z90.10 Acquired absence of unspecified breast and nipple; Z87.891 Personal history of nicotine dependence; Z82.49 Family history of ischemic heart disease and other diseases of the circulatory system; Z80.1 Family history of malignant neoplasm of trachea, bronchus and lung; Z23 Encounter for immunization
CPT/HCPCS: 01230; 36415; 71010; 80048; 80053; 81001; 83735; 85025; 85027; 85610; 85730; 86850; 86900; 86901; 87086; 90715; 93005; 93010; 93306; 94010; 96374; 99285; C1713; G8978-GP; G8979-GP; G8987-GO; G8988-GO; J0131; J0690; J1100; J1885; J2250; J2270; J2405; J2704; J3010; J3475; J3490; J7030; J7120

== ENCOUNTER 2017-08-04 23:25 | Inpatient (IN) | payer MEDICARE, OTHER ==
[2017-08-05] MEDS ORDERED: MORPHINE SULFATE 10 MG/ML INJ IV PRN ×5 (00:18→11:46)
[2017-08-05] MEDS ORDERED: KETOROLAC TROMETHAMINE INJ/PF 30 MG/1 ML SDV IV ONE (00:18)
[2017-08-05 00:58] LABS: ABSOLUTE EOSINOPHILS # (AUTO) 0.2 10^3/uL (0.0-0.6); ABSOLUTE LYMPHOCYTES (AUTO) 0.8 10^3/uL (0.5-4.7); ABSOLUTE MONOCYTES (AUTO) 0.7 10^3/uL (0.1-1.4); ABSOLUTE NEUT (AUTO) 6.8 10^3/uL (1.7-8.2); BASOPHILS % (AUTO) 0.4 % (0-2); EOSINOPHILS % (AUTO) 1.9 % (0-6); HEMATOCRIT 35.5 % (36.0-47.0); HEMOGLOBIN 12.3 g/dL (12.0-15.5); LYMPHOCYTES % (AUTO) 9.5 % (13-45); MEAN CORPUSCULAR HEMOGLOBIN 32.8 pg (27.0-33.4); MEAN CORPUSCULAR HGB CONC 34.5 g/dL (32.0-36.0); MEAN CORPUSCULAR VOLUME 95 fl (80-97); MONOCYTES % (AUTO) 8.1 % (3-13); PLATELET COUNT 208 10^3/uL (150-450); RED BLOOD COUNT 3.74 10^6/uL (3.72-5.28); RED CELL DISTRIBUTION WIDTH 12.8 % (11.5-14.0); SEGMENTED NEUTROPHILS % (AUTO) 80.1 % (42-78); TOTAL CELLS COUNTED % (AUTO) 100 %; WHITE BLOOD COUNT 8.5 10^3/uL (4.0-10.5)
--- NOTE | 2017-08-05 01:03 | RADIOLOGY REPORT (SQ) ---
EXAM DESCRIPTION: HIP RIGHT AP/LATERAL CLINICAL HISTORY: 66 years, Female, pain COMPARISON: 10.1.17 NUMBER OF VIEWS: 2 LIMITATIONS: None. FINDINGS: Acute appearing fracture of the right femoral neck with 0.9 cm distraction and moderate medial angulation. Moderate deformity of the left paracentral pubic symphysis appears predominantly chronic. Reinjury cannot be excluded. Hardware fixation of the left femoral neck and proximal left femur. Hardware fixation of the lumbosacral junction. IMPRESSION: Fracture of the right femoral neck.
--- NOTE | 2017-08-05 01:09 | RADIOLOGY REPORT (SQ) ---
EXAM DESCRIPTION: CHEST SINGLE VIEW CLINICAL HISTORY: 66 years Female, PRE OP COMPARISON: None. NUMBER OF VIEWS/TECHNIQUE: 1/AP LIMITATIONS: None. FINDINGS: Small atelectasis or scar in the left midlung field. Prominent interstitium. Chronic deformity of the right eighth and seventh posterior ribs. Normal cardiac silhouette. IMPRESSION: No acute cardiopulmonary findings.
[2017-08-05] MEDS ORDERED: MORPHINE SULFATE 10 MG/ML INJ IV ONE ×2 (01:12→01:28)
[2017-08-05] MEDS ORDERED: LIDOCAINE 5% (700 MG) TRANSDERMAL ADH..PATCH TP ONE (01:29)
[2017-08-05] MEDS ORDERED: ACETAMINOPHEN 325 MG TABLET PO ONE (01:30)
--- NOTE | 2017-08-05 01:34 | ER Document Report ---
ED General - General Chief Complaint: Hip Pain Stated Complaint: HIP PAIN Time Seen by Provider: 08/05/17 00:18 Notes: Patient is a 66-year-old female with past medical history of hypertension, hyperlipidemia, COPD with a baseline oxygen requirement who presents with right hip pain. Patient states that she had a mild, throbbing, aching pain all day today in the right hip. She states she was walking in her house and she abruptly heard a snap, became unable to bear weight on the left leg and fell to the ground. She denies sustaining any injuries during the fall. She states however that since that time she has had a severe, constant, throbbing pain to the right hip. Nothing improves the pain and any attempted movement of the hip worsens the pain. The patient reports that this is exactly the same as when she had hip fracture in the past on the left side. She denies any additional injuries or concerns today. TRAVEL OUTSIDE OF THE [place] IN LAST 30 DAYS: No - Related Data Allergies/Adverse Reactions: No Known Allergies Allergy (Verified 08/05/17 00:08) Past Medical History - General Information source: Patient - Social History Smoking Status: Former Smoker Frequency of alcohol use: None Drug Abuse: None Lives with: Alone Family History: Hypertension - Father, Malignancy - Mother with lung cancer Patient has suicidal ideation: No Patient has homicidal ideation: No - Past Medical History Cardiac Medical History: Reports: Hx Hypertension Denies: Hx Coronary Artery Disease, Hx Heart Attack Pulmonary Medical History: Reports: Hx COPD, Hx Pneumonia Denies: Hx Asthma, Hx Bronchitis, Hx Tuberculosis Neurological Medical History: Denies: Hx Cerebrovascular Accident, Hx Seizures Renal/ Medical History: Denies: Hx Peritoneal Dialysis Malignancy Medical History: Reports: Hx Breast Cancer GI Medical History: Denies: Hx Hepatitis, Hx Hiatal Hernia, Hx Ulcer Musculoskeltal Medical History: Reports Hx Arthritis Psychiatric Medical History: Reports: Hx Anxiety, Hx Depression Infectious Medical History: Denies: Hx Hepatitis Past Surgical History: Reports: Hx Breast Surgery - Lumpectomy, Hx Gynecologic Surgery - lainey salpingooophorectomy, Hx Hysterectomy, Hx Mastectomy - LUMPECTOMY , Hx Orthopedic Surgery - Back surgery 2,, Hx Tubal Ligation. Denies: Hx Open Heart Surgery, Hx Pacemaker - Immunizations Hx Diphtheria, Pertussis, Tetanus Vaccination: Yes - 2001 Hx Pneumococcal Vaccination: 07/05/15 Review of Systems - Review of Systems Notes: Constitutional: Negative for fever. HENT: Negative for sore throat. Eyes: Negative for visual changes. Cardiovascular: Negative for chest pain. Respiratory: Negative for shortness of breath. Gastrointestinal: Negative for abdominal pain, vomiting or diarrhea. Genitourinary: Negative for dysuria. Musculoskeletal: Positive for right hip pain Skin: Negative for rash. Neurological: Negative for headaches, weakness or numbness. 10 point ROS negative except as marked above and in HPI. Physical Exam - Vital signs Vitals: Temp Pulse Resp BP Pulse Ox 98.7 F 77 22 H 146/81 H 91 L 08/04/17 23:50 08/04/17 23:50 08/04/17 23:50 08/04/17 23:50 08/04/17 23:50 Interpretation: Hypoxic, Tachypneic Notes: PHYSICAL EXAMINATION: GENERAL: Well-appearing, well-nourished and in no acute distress. HEAD: Atraumatic, normocephalic. EYES: Pupils equal round and reactive to light, extraocular movements intact, sclera anicteric, conjunctiva are normal. ENT: nares patent, oropharynx clear without exudates. Moist mucous membranes. NECK: Normal range of motion, supple without lymphadenopathy LUNGS: Breath sounds clear to auscultation bilaterally and equal. Scant expiratory wheezing in all lung cody HEART: Regular rate and rhythm without murmurs ABDOMEN: Soft, nontender, normoactive bowel sounds. No guarding, no rebound. No masses appreciated. EXTREMITIES: Severe pain on palpation of the right hip. Mild shortening of the right leg relative to the right. There was no bruising or deformity to the hip NEUROLOGICAL: No focal neurological deficits. Moves all extremities spontaneously and on command. PSYCH: Normal mood, normal affect. SKIN: Warm, Dry, normal turgor, no rashes or lesions noted. Course - Re-evaluation Re-evalutation: 08/05/17 01:30 Patient presents with a right femoral neck fracture. Submit an atypical story as the patient states this occur while ambulating that she had been having some mild pain throughout the day today but when she took a step at home today she heard a crack and then fell to the ground on her left not her right hip. She does have exquisite pain in the right hip but no additional injuries. No head or neck trauma today. Patient's pain has been very difficult control she has received a total of 8 mg of IV morphine in the past hour with almost no improvement of her pain. She is also received Toradol with no improvement. Will continue to increase the dose of morphine to provide analgesic control. Patient is wide awake, there is no concern at this point of overmedicating. I have discussed this case with Dr. Salcido the orthopedic clinic developer relations manager who will consult on the patient for surgical management. Given her underlying medical comorbidities she will be admitted to the hospitalist service. - Vital Signs Vital signs: Temp Pulse Resp BP Pulse Ox 98.7 F 77 24 H 158/86 H 92 08/04/17 23:50 08/04/17 23:50 08/05/17 02:01 08/05/17 02:00 08/05/17 02:01 - Laboratory Result Diagrams: 08/05/17 00:42 08/05/17 01:50 Laboratory results interpreted by me: 08/05/17 08/05/17 00:42 01:50 Hct 35.5 L Seg Neutrophils % 80.1 H Lymphocytes % 9.5 L Sodium 126.9 L Chloride 92 L Glucose 113 H - Diagnostic Test Radiology reviewed: Image reviewed, Reports reviewed Radiology results interpreted by me: 08/05/17 01:33 Right femur: Acute right femoral neck fracture Discharge - Discharge Clinical Impression: Fracture of femoral neck, right, closed Qualifiers: Encounter type: initial encounter Qualified Code(s): S72.001A - Fracture of unspecified part of neck of right femur, initial encounter for closed fracture Condition: Fair Disposition: ADMITTED INPATIENT Admitting Provider: Hospitalist Unit Admitted: Telemetry
[2017-08-05] MEDS ORDERED: MAGNESIUM HYDROXIDE SUSP 30 ML UDCUP PO PRN (01:56)
[2017-08-05] MEDS ORDERED: ONDANSETRON HCL INJ/PF 4 MG/2 ML SDV IV PRN ×2 (01:56→11:46)
[2017-08-05] MEDS ORDERED: MAG HYDROX/AL HYDROX/SIMETH SUSP 30 ML UDCUP PO PRN ×2 (01:56→11:46)
[2017-08-05] MEDS ORDERED: ACETAMINOPHEN 325 MG TABLET PO SCH (02:00)
[2017-08-05] MEDS: IPRATROPIUM/ALBUTEROL 0.5-2.5 MG/3 ML AMPUL NEB SCH ×4 (02:00→20:13)
[2017-08-05] MEDS ORDERED: NORMAL SALINE 1000 ML 1,000 ML IV PRN (02:00)
[2017-08-05 02:28] LABS: ANION GAP 9 (5-19); BLOOD UREA NITROGEN 11 mg/dL (7-20); CALCIUM 9.7 mg/dL (8.4-10.2); CARBON DIOXIDE 26 mmol/L (22-30); CHLORIDE 92 mmol/L (98-107); GLUCOSE 113 mg/dL (75-110); POTASSIUM 4.5 mmol/L (3.6-5.0); SODIUM 126.9 mmol/L (137-145)
[2017-08-05 02:54] LABS: PROTHROMBIN TIME 12.8 SEC (11.4-15.4)
[2017-08-05] MEDS ORDERED: MORPHINE SULFATE 10 MG/ML INJ ONE (03:01)
[2017-08-05] MEDS ORDERED: FENTANYL 25 MCG/HR PATCH.TD72 TD ONE (03:36)
[2017-08-05] MEDS: MORPHINE SULFATE 10 MG/ML INJ IV PRN ×2 (04:00→08:27)
--- NOTE | 2017-08-05 05:30 | PDOC H&P ---
History of Present Illness Admission Date/PCP: 08/05/17 02:36 JONATHAN MOORE NP Patient complains of: Left-sided hip pain History of Present Illness: REGGIE ZHENG is a 66 year old female with a past medical history of osteoporosis, hypertension, dyslipidemia, COPD with oxygen dependence and chronic back pain. Patient presents after aching pain to the right hip 12 hours followed by the sound of a snap while walking followed by excruciating pain. Unable to bear weight she fell to the ground on the right side without sustaining trauma or loss of consciousness. In the emergency room she is found to have an acute right femoral neck fracture. Patient admits history of recent left-sided pathologic fracture secondary to severe osteoporosis. She denies alleviating factors other than IV morphine. Her previous surgery required conscious sedation given underlying COPD. Past Medical History Cardiac Medical History: Reports: Hypertension Denies: Coronary Artery Disease, Myocardial Infarction Pulmonary Medical History: Reports: Chronic Obstructive Pulmonary Disease (COPD) , Pneumonia Denies: Asthma, Bronchitis, Tuberculosis Neurological Medical History: Denies: Seizures Malignancy Medical History: Reports: Breast Cancer GI Medical History: Denies: Hepatitis, Hiatal Hernia Musculoskeltal Medical History: Reports: Arthritis Psychiatric Medical History: Reports: Depression Hematology: Denies: Anemia, Sickle Cell Disease Past Surgical History Past Surgical History: Reports: Hysterectomy, Mastectomy - LUMPECTOMY, Orthopedic Surgery - Back surgery 2,, Tubal Ligation Denies: Amputation, Pacemaker Social History Information Source: Patient, [facility] Records Lives with: Alone Smoking Status: Former Smoker Frequency of Alcohol Use: Social Hx Recreational Drug Use: No Drugs: None Hx Prescription Drug Abuse: No - Advance Directive Resuscitation Status: Full Code Family History Family History: Hypertension - Father, Malignancy - Mother with lung cancer Parental Family History Reviewed: Yes Children Family History Reviewed: Yes Sibling(s) Family History Reviewed.: Yes Medication/Allergy Home Medications: Albuterol Sulfate [Proair HFA] 2 puff IN Q6HP PRN 02/01/17 Aspirin [Aspirin EC] 81 mg PO DAILY 02/01/17 Budesonide/Formoterol Fumarate [Symbicort 160-4.5 Mcg Inhaler] 2 puff IN QAM Cetirizine HCl [Zyrtec 10 mg Tablet] 10 mg PO DAILY 02/01/17 Citalopram Hydrobromide [Celexa] 40 mg PO DAILY 02/01/17 Lisinopril [Zestril] 20 mg PO DAILY 02/01/17 Meloxicam [Mobic] 15 mg PO DAILY 02/01/17 Multivit-Min/Iron/Folic/Lutein [Centrum Silver Women Tablet] 1 tab PO DAILY Pantoprazole Sodium [Protonix] 40 mg PO DAILY 02/01/17 Tiotropium [place] [Spiriva] 2 puff IN DAILYP PRN 02/01/17 Docusate Sodium [Colace 100 mg Capsule] 100 mg PO BID capsule 02/04/17 Folic Acid [Folvite 1 mg Tablet] 1 mg PO DAILY tablet 02/04/17 Ipratropium/Albuterol Sulfate [Duoneb 3 ml Ampul] 3 ml NEB RTQ6HP PRN vial.neb 02/04/17 Lorazepam [Ativan 0.5 mg Tablet] 0.5 mg PO BIDP PRN #10 tablet 02/04/17 Oxycodone HCl/Acetaminophen [Percocet 5-325 mg Tablet] 1 tab PO Q4HP PRN #20 tablet 02/04/17 Rivaroxaban [Xarelto 10 mg Tablet] 10 mg PO QHS tablet 02/04/17 Thiamine HCl [Thiamine 100 mg Tablet] 100 mg PO DAILY tablet 02/04/17 Allergies/Adverse Reactions: No Known Allergies Allergy (Verified 08/05/17 00:08) Review of Systems Constitutional: ABSENT: chills, fever(s), headache(s), weight gain, weight loss Eyes: ABSENT: visual disturbances Ears: ABSENT: hearing changes Cardiovascular: ABSENT: chest pain, dyspnea on exertion, edema, orthropnea, palpitations Respiratory: ABSENT: cough, hemoptysis Gastrointestinal: ABSENT: abdominal pain, constipation, diarrhea, hematemesis, hematochezia, nausea, vomiting Genitourinary: ABSENT: dysuria, hematuria Musculoskeletal: ABSENT: joint swelling Integumentary: ABSENT: rash, wounds Neurological: ABSENT: abnormal gait, abnormal speech, confusion, dizziness, focal weakness, syncope Psychiatric: ABSENT: anxiety, depression, homidical ideation, suicidal ideation Endocrine: ABSENT: cold intolerance, heat intolerance, polydipsia, polyuria Hematologic/Lymphatic: ABSENT: easy bleeding, easy bruising Physical Exam Vital Signs: Temp Pulse Resp BP Pulse Ox 98.7 F 77 21 H 158/86 H 95 08/04/17 23:50 08/04/17 23:50 08/05/17 03:45 08/05/17 02:00 08/05/17 05:08 General appearance: PRESENT: cooperative, severe distress Head exam: PRESENT: atraumatic, normocephalic Eye exam: PRESENT: conjunctiva pink, EOMI, PERRLA. ABSENT: scleral icterus Ear exam: PRESENT: normal external ear exam Mouth exam: PRESENT: moist, tongue midline Neck exam: ABSENT: carotid bruit, JVD, lymphadenopathy, thyromegaly Respiratory exam: PRESENT: clear to auscultation lainey, prolonged expiratory phas , tachypnea. ABSENT: crackles, rales, rhonchi, wheezes Cardiovascular exam: PRESENT: RRR. ABSENT: diastolic murmur, rubs, systolic murmur Pulses: PRESENT: normal dorsalis pedis pul Vascular exam: PRESENT: normal capillary refill GI/Abdominal exam: PRESENT: normal bowel sounds, soft. ABSENT: distended, guarding, mass, organolmegaly, rebound, tenderness Rectal exam: PRESENT: deferred Extremities exam: PRESENT: other - Right lower extremity range of motion limited by pain. ABSENT: calf tenderness, clubbing, pedal edema Musculoskeletal exam: PRESENT: tenderness Neurological exam: PRESENT: alert, awake, oriented to person, oriented to place , oriented to time, oriented to situation, CN II-XII grossly intact. ABSENT: motor sensory deficit Psychiatric exam: PRESENT: appropriate affect, normal mood. ABSENT: homicidal ideation, suicidal ideation Skin exam: PRESENT: abrasion Results Impressions: Hip/Pelvis X-Ray 08/04/17 23:59 IMPRESSION: Fracture of the right femoral neck. Chest X-Ray 08/05/17 00:00 IMPRESSION: No acute cardiopulmonary findings. Assessment & Plan - Diagnosis (1) Fracture of femoral neck, right, closed Qualifiers: Encounter type: initial encounter Qualified Code(s): S72.001A - Fracture of unspecified part of neck of right femur, initial encounter for closed fracture Is this a current diagnosis for this admission?: Yes Plan: Spontaneous pathological fracture. She is without reversible cardiopulmonary risk factors prior to surgery recommend conscious sedation. Orthopedic surgery consulted, symptomatic management (2) Chronic pain Is this a current diagnosis for this admission?: Yes Plan: Anticipating challenges given acute on chronic pain, fentanyl 25 mcg patch, scheduled Tylenol, Celexa and pain management consult ordered (3) COPD (chronic obstructive pulmonary disease) Qualifiers: COPD type: emphysema Emphysema type: unspecified Qualified Code(s): J43.9 - Emphysema, unspecified Is this a current diagnosis for this admission?: Yes Plan: Flutter valve, incentive spirometry, albuterol and Atrovent, Flonase ordered (4) Osteoporosis Qualifiers: Osteoporosis type: unspecified Presence of current pathological fracture: with current pathological fracture Encounter type: initial encounter Qualified Code(s): M80.00XA - Age-related osteoporosis with current pathological fracture, unspecified site, initial encounter for fracture Is this a current diagnosis for this admission?: Yes Plan: Outpatient management. Consider calcitonin as adjunct to pain management. - Time Time Spent: 50 to 70 Minutes - Inpatient Certification Medical Necessity: Need Close Monitoring Due to Risk of Patient Decompensation
[2017-08-05 06:16] LABS: ABSOLUTE LYMPHOCYTES (AUTO) 0.6 10^3/uL (0.5-4.7); ABSOLUTE MONOCYTES (AUTO) 0.6 10^3/uL (0.1-1.4); ABSOLUTE NEUT (AUTO) 7.4 10^3/uL (1.7-8.2); BASOPHILS % (AUTO) 0.4 % (0-2); EOSINOPHILS % (AUTO) 0.3 % (0-6); HEMOGLOBIN 11.8 g/dL (12.0-15.5); LYMPHOCYTES % (AUTO) 6.8 % (13-45); MEAN CORPUSCULAR HEMOGLOBIN 32.8 pg (27.0-33.4); MEAN CORPUSCULAR HGB CONC 34.9 g/dL (32.0-36.0); MEAN CORPUSCULAR VOLUME 94 fl (80-97); PLATELET COUNT 228 10^3/uL (150-450); RED BLOOD COUNT 3.61 10^6/uL (3.72-5.28); RED CELL DISTRIBUTION WIDTH 12.7 % (11.5-14.0); SEGMENTED NEUTROPHILS % (AUTO) 85.5 % (42-78); TOTAL CELLS COUNTED % (AUTO) 100 %; WHITE BLOOD COUNT 8.6 10^3/uL (4.0-10.5)
[2017-08-05] MEDS: HEPARIN SOD (PORCINE) 5,000 UNIT/ML 1 ML SYRINGE SUBCUT SCH ×3 (06:30→21:28)
[2017-08-05 06:31] LABS: ANION GAP 8 (5-19); BLOOD UREA NITROGEN 12 mg/dL (7-20); CALCIUM 9.4 mg/dL (8.4-10.2); CARBON DIOXIDE 26 mmol/L (22-30); CHLORIDE 93 mmol/L (98-107); GLUCOSE 119 mg/dL (75-110); SODIUM 126.8 mmol/L (137-145)
--- NOTE | 2017-08-05 06:53 | PDOC CONSULTATION ---
Consultation Consult Date: 08/05/17 Consult reason:: Right hip fracture History of Present Illness Admission Date/PCP: 08/05/17 02:36 JONATHAN MOORE NP History of Present Illness: Patient is a 66-year-old white female status post open reduction internal fixation of a left intratrochanteric femur fracture last January now with onset of right hip pain and inability to bear weight. Patient was evaluated in emergency room where a displaced right ft femoral neck fracture was diagnosed. Orthopedics is consulted for fracture management. Past Medical History Cardiac Medical History: Reports: Hypertension Denies: Coronary Artery Disease, Myocardial Infarction Pulmonary Medical History: Reports: Chronic Obstructive Pulmonary Disease (COPD) , Pneumonia Denies: Asthma, Bronchitis, Tuberculosis Neurological Medical History: Denies: Seizures Malignancy Medical History: Reports: Breast Cancer GI Medical History: Denies: Hepatitis, Hiatal Hernia Musculoskeltal Medical History: Reports: Arthritis Psychiatric Medical History: Reports: Depression Hematology: Denies: Anemia, Sickle Cell Disease Past Surgical History Past Surgical History: Reports: Hysterectomy, Mastectomy - LUMPECTOMY, Orthopedic Surgery - Back surgery 2, open reduction internal fixation left femur fracture 2017, Tubal Ligation Denies: Amputation, Pacemaker Social History Information Source: Patient, [facility] Records Lives with: Alone Smoking Status: Former Smoker Frequency of Alcohol Use: Social Hx Recreational Drug Use: No Drugs: None Hx Prescription Drug Abuse: No - Advance Directive Resuscitation Status: Full Code Family History Family History: Hypertension - Father, Malignancy - Mother with lung cancer Parental Family History Reviewed: No Children Family History Reviewed: No Sibling(s) Family History Reviewed.: No Medication/Allergy Home Medications: Albuterol Sulfate [Proair HFA] 2 puff IN Q6HP PRN 02/01/17 Aspirin [Aspirin EC] 81 mg PO DAILY 02/01/17 Budesonide/Formoterol Fumarate [Symbicort 160-4.5 Mcg Inhaler] 2 puff IN QAM Cetirizine HCl [Zyrtec 10 mg Tablet] 10 mg PO DAILY 02/01/17 Citalopram Hydrobromide [Celexa] 40 mg PO DAILY 02/01/17 Lisinopril [Zestril] 20 mg PO DAILY 02/01/17 Meloxicam [Mobic] 15 mg PO DAILY 02/01/17 Multivit-Min/Iron/Folic/Lutein [Centrum Silver Women Tablet] 1 tab PO DAILY Pantoprazole Sodium [Protonix] 40 mg PO DAILY 02/01/17 Tiotropium Stevenson [Spiriva] 2 puff IN DAILYP PRN 02/01/17 Docusate Sodium [Colace 100 mg Capsule] 100 mg PO BID capsule 02/04/17 Folic Acid [Folvite 1 mg Tablet] 1 mg PO DAILY tablet 02/04/17 Ipratropium/Albuterol Sulfate [Duoneb 3 ml Ampul] 3 ml NEB RTQ6HP PRN vial.neb 02/04/17 Lorazepam [Ativan 0.5 mg Tablet] 0.5 mg PO BIDP PRN #10 tablet 02/04/17 Oxycodone HCl/Acetaminophen [Percocet 5-325 mg Tablet] 1 tab PO Q4HP PRN #20 tablet 02/04/17 Rivaroxaban [Xarelto 10 mg Tablet] 10 mg PO QHS tablet 02/04/17 Thiamine HCl [Thiamine 100 mg Tablet] 100 mg PO DAILY tablet 02/04/17 Allergies/Adverse Reactions: No Known Allergies Allergy (Verified 08/05/17 00:08) Review of Systems All systems: as per PMH Physical Exam Vital Signs: Temp Pulse Resp BP Pulse Ox 37.1 C 77 23 H 157/90 H 98 08/04/17 23:50 08/04/17 23:50 08/05/17 06:29 08/05/17 06:29 08/05/17 06:29 General appearance: PRESENT: mild distress Head exam: PRESENT: normocephalic Respiratory exam: PRESENT: unlabored, other - CPAP Cardiovascular exam: PRESENT: RRR Pulses: PRESENT: +1 pedal pulses bilateral Vascular exam: PRESENT: normal capillary refill GI/Abdominal exam: PRESENT: soft Rectal exam: PRESENT: deferred Extremities exam: PRESENT: other - Right lower extremity is flexed and 80 adducted. Passive range of motion is painful. Leg lengths are unequal. Distal neurovascular examination are intact. Neurological exam: PRESENT: alert, awake, oriented to person, oriented to place , oriented to time, oriented to situation. ABSENT: motor sensory deficit Psychiatric exam: PRESENT: appropriate affect, normal mood. ABSENT: homicidal ideation, suicidal ideation Skin exam: PRESENT: dry, intact, warm. ABSENT: cyanosis, rash Results Laboratory Results: 08/05/17 06:00 08/05/17 06:00 WBC 8.6 RBC 3.61 L Hgb 11.8 L Hct 34.0 L MCV 94 MCH 32.8 MCHC 34.9 RDW 12.7 Plt Count 228 Seg Neutrophils % 85.5 H Lymphocytes % 6.8 L Monocytes % 7.0 Eosinophils % 0.3 Basophils % 0.4 Absolute Neutrophils 7.4 Absolute Lymphocytes 0.6 Absolute Monocytes 0.6 Absolute Eosinophils 0.0 Absolute Basophils 0.0 Impressions: Hip/Pelvis X-Ray 08/04/17 23:59 IMPRESSION: Fracture of the right femoral neck. Chest X-Ray 08/05/17 00:00 IMPRESSION: No acute cardiopulmonary findings. Status: Imported from PACS Assessment & Plan - Diagnosis (1) Fracture of femoral neck, right, closed Qualifiers: Encounter type: initial encounter Qualified Code(s): S72.001A - Fracture of unspecified part of neck of right femur, initial encounter for closed fracture Is this a current diagnosis for this admission?: Yes Plan: 66-year-old white female with osteoporosis now with a displaced right femoral neck fracture. Tentative plan will be to proceed with a right hip arthroplasty under regional anesthesia pending EKG. Patient is aware that there are risks and benefits of surgery. The risks include and are not limited to infection, dislocation, leg length inequality, neurovascular injury, and potentially blood clots. - Time Time Spent: 50 to 70 Minutes Anticipated discharge: SNF Within: Other
[2017-08-05] MEDS ORDERED: RINGERS SOLUTION,LACTATED 1,000 ML IV PRN ×2 (07:40→11:46)
[2017-08-05] MEDS ORDERED: VANCOMYCIN HCL 1,000 MG in DEXTROSE 5%-WATER 250 ML IV PRN (07:41)
[2017-08-05] MEDS ORDERED: TRANEXAMIC ACID INJ/PF 1,000 MG/10 ML SDV IV PRN (07:42)
--- NOTE | 2017-08-05 09:40 | EKG REPORT ---
SEVERITY:- BORDERLINE ECG - SINUS RHYTHM LOW VOLTAGE IN FRONTAL LEADS BORDERLINE T ABNORMALITIES, ANTERIOR LEADS : Confirmed by: Laurence Hanson 05-Aug-2017 09:39:16
[2017-08-05] MEDS ORDERED: LIDOCAINE 2% INJ-PF (20 MG/ML) 10 ML AMPUL ONE (09:43)
[2017-08-05] MEDS ORDERED: FENTANYL CITRATE INJ/PF 100 MCG/2 ML AMPUL ONE ×2 (09:44)
[2017-08-05] MEDS ORDERED: KETAMINE HCL INJ 500 MG/10 ML VIAL ONE (09:44)
[2017-08-05] MEDS ORDERED: DEXAMETHASONE SOD PHOSPHATE INJ 4 MG/1 ML VIAL ONE (09:44)
[2017-08-05] MEDS ORDERED: MIDAZOLAM 2 MG/2 ML INJ ONE (09:44)
[2017-08-05] MEDS ORDERED: ACETAMINOPHEN 100 ML IV ONE ×2 (09:45→18:00)
[2017-08-05] MEDS ORDERED: ONDANSETRON HCL INJ/PF 4 MG/2 ML SDV ONE (09:45)
[2017-08-05] MEDS ORDERED: TRANEXAMIC ACID INJ/PF 1,000 MG/10 ML SDV IV ONE ×2 (09:45→14:00)
[2017-08-05] MEDS ORDERED: PROPOFOL INJ 200 MG/20 ML VIAL IV ONE (09:45)
[2017-08-05] MEDS ORDERED: EPHEDRINE SULFATE INJ 50 MG/1 ML AMPULE ONE (09:46)
[2017-08-05] MEDS ORDERED: THROMBIN (BOVINE) TOPICAL 20000 UNIT VIAL ONE (09:49)
[2017-08-05] MEDS ORDERED: BUPIVACAINE INJ/PF LIPOSOME/PF 266 MG/20 ML SDV ONE (09:49)
[2017-08-05] MEDS ORDERED: THROMBIN (BOVINE) 5000 UNIT EPITAXIS KIT ONE (09:49)
[2017-08-05] MEDS ORDERED: TETRACAINE HCL/PF 20MG/2ML AMPULE (SPINAL) ONE (09:52)
[2017-08-05] MEDS ORDERED: ASPIRIN 81 MG TABLET, ENT COATED PO SCH (10:00)
[2017-08-05] MEDS ORDERED: MEPERIDINE HCL/PF INJ 25 MG/1 ML DISP.SYRIN IV PRN (11:34)
[2017-08-05] MEDS ORDERED: DIPHENHYDRAMINE HCL 50 MG/ML VIAL IV PRN ×2 (11:34→11:46)
[2017-08-05] MEDS ORDERED: OXYCODONE-ACETAMINOPHEN 5-325 MG TABLET PO PRN ×2 (11:34)
[2017-08-05] MEDS ORDERED: PROMETHAZINE HCL INJ 25 MG/1 ML VIAL IV PRN ×2 (11:34)
[2017-08-05] MEDS ORDERED: FENTANYL CITRATE INJ/PF 100 MCG/2 ML AMPUL IV PRN ×3 (11:34)
[2017-08-05] MEDS ORDERED: LORAZEPAM 0.5 MG TABLET PO PRN (11:42)
[2017-08-05] MEDS ORDERED: MORPHINE SULFATE 10 MG/ML INJ IM PRN (11:46)
[2017-08-05] MEDS ORDERED: ACETAMINOPHEN 325 MG TABLET PO PRN (11:46)
[2017-08-05] MEDS ORDERED: ZOLPIDEM TARTRATE 5 MG TABLET PO PRN (11:46)
[2017-08-05] MEDS ORDERED: ONDANSETRON 4 MG TAB.RAPDIS PO PRN (11:46)
--- NOTE | 2017-08-05 11:46 | Operative Report ---
Operative Report DATE OF SURGERY: 08/05/17 PREOPERATIVE DIAGNOSIS: Right femoral neck fracture OPERATION: Right total hip arthroplasty SURGEON: LILY JAMISON ANESTHESIA: Spinal TISSUE REMOVED OR ALTERED: Femoral head to pathology ESTIMATED BLOOD LOSS: 100 PROCEDURE: Implants used: Femur: Edwar Accolade 2 stem size 4 Acetabular shell: 54 mm hemispherical cluster hole shell Liner: 36 mm flat cross-link polyethylene liner Head: 36 mm chrome cobalt head -5 mm neck The patient is placed in a left lateral decubitus position on the operating table. The right lower extremity and hindquarter is prepped and draped in a sterile fashion. A curvilinear incision was made over the greater trochanter a posterior approach the hip was taken. The femoral head is dislocated and the femoral neck transected using an oscillating saw. Attention was next turned to the acetabulum. Soft tissues cleared off the acetabulum using electrocautery. The acetabulum was then prepared using a series of hemispherical reamers until a 53 millimeters reamer is seated. Subsequently a 54 millimeters [place] titanium hemispherical shell is impacted into position and secured with one screw. A standard flat 36 millimeters cross- link liner is impacted into the shell. Attention was next turned to the femur. Access is gained to the femoral canal using a box osteotome to the piriformis fossa. The femur is then prepared using a series of broaches until a number 4 broach is seated. A trial reduction was now performed using a 36 millimeters head with -5 neck. Preoperative leg length was recreated and is excellent anterior posterior stability. A decision was made to proceed with the above construct. All trial implants were removed. The wound is irrigated with pulsed lavage. A number 4 stem is impacted into the femoral canal. A trial reduction was again performed with a 36 mm head and a -5 neck. Findings as previously. The hip was dislocated one last time and the final chrome-cobalt head is impacted onto the trunnion. The hip was reduced. Wound is copiously irrigated with pulsed lavage. Sent closed in layers using interrupted Vicryl followed by radha. A sterile dressing is applied and the patient's returned to recovery room in satisfactory patient.
[2017-08-05] MEDS ORDERED: PROMETHAZINE HCL INJ 25 MG/1 ML VIAL ONE (12:15)
--- NOTE | 2017-08-05 12:34 | RADIOLOGY REPORT (SQ) ---
EXAM DESCRIPTION: PELVIS AP COMPLETED DATE/TIME: 08/05/2017 12:15 pm REASON FOR STUDY: Post Op Long Cassette in PACU COMPARISON: Films 02/03/2017, 08/05/2017 NUMBER OF VIEWS: One view TECHNIQUE: AP Pelvis LIMITATIONS: None. FINDINGS: Patient is post right hip replacement with non cemented femoral component, and acetabular component anchored with a single screw. Good alignment right hip. Old left superior and inferior pubic ramus fractures, old healed left intertrochanteric fracture with hardware. Lower lumbar fusion hardware. Old healed right and left sacral fractures. Bones are osteoporotic. Gale catheter in the bladder. IMPRESSION: Right hip replacement in good positioning TECHNICAL DOCUMENTATION: JOB ID: [id number] [employer]- All Rights Reserved Reading location - IP/workstation name: [email or web address]
[2017-08-05] MEDS ORDERED: IPRATROPIUM/ALBUTEROL 0.5-2.5 MG/3 ML AMPUL NEB ONE (12:49)
[2017-08-05] MEDS ORDERED: NICOTINE 14 MG/24 HR PATCH.TD24 TD PRN (13:17)
--- NOTE | 2017-08-05 13:22 | PDOC PROGRESS REPORT ---
Subjective Progress Note for:: 08/05/17 Subjective:: Patient complains of pain in her right he also complains of being thirsty Review of system All organ systems evaluated and negative except as in subjective All significant laboratories and diagnostics have been reviewed Reason For Visit: HIP FRACTURE, COPD Physical Exam Vital Signs: Temp Pulse Resp BP Pulse Ox 98.7 F 77 18 137/98 H 98 08/04/17 23:50 08/04/17 23:50 08/05/17 07:01 08/05/17 07:00 08/05/17 07:01 General appearance: PRESENT: cooperative, mild distress, thin Head exam: PRESENT: atraumatic, normocephalic Eye exam: PRESENT: conjunctiva pink, EOMI, PERRLA Mouth exam: PRESENT: dry mucosa Neck exam: PRESENT: full ROM. ABSENT: JVD, lymphadenopathy, tenderness Respiratory exam: PRESENT: clear to auscultation lainey Cardiovascular exam: PRESENT: RRR. ABSENT: diastolic murmur, systolic murmur Vascular exam: PRESENT: normal capillary refill GI/Abdominal exam: PRESENT: normal bowel sounds, soft Extremities exam: ABSENT: full ROM, pedal edema Musculoskeletal exam: ABSENT: ambulatory Neurological exam: PRESENT: alert, awake, oriented to person, oriented to place , oriented to time, oriented to situation, CN II-XII grossly intact Psychiatric exam: PRESENT: appropriate affect Skin exam: PRESENT: intact, normal color Results Laboratory Results: 08/05/17 06:00 08/05/17 06:00 08/05/17 08/05/17 06:00 06:00 WBC 8.6 RBC 3.61 L Hgb 11.8 L Hct 34.0 L MCV 94 MCH 32.8 MCHC 34.9 RDW 12.7 Plt Count 228 Seg Neutrophils % 85.5 H Lymphocytes % 6.8 L Monocytes % 7.0 Eosinophils % 0.3 Basophils % 0.4 Absolute Neutrophils 7.4 Absolute Lymphocytes 0.6 Absolute Monocytes 0.6 Absolute Eosinophils 0.0 Absolute Basophils 0.0 Sodium 126.8 L Potassium 5.0 Chloride 93 L Carbon Dioxide 26 Anion Gap 8 BUN 12 Creatinine 0.67 Est GFR ( Amer) > 60 Est GFR (Non-Af Amer) > 60 Glucose 119 H Calcium 9.4 Impressions: Hip/Pelvis X-Ray 08/04/17 23:59 IMPRESSION: Fracture of the right femoral neck. Chest X-Ray 08/05/17 00:00 IMPRESSION: No acute cardiopulmonary findings. Assessment & Plan - Diagnosis (1) Fracture of femoral neck, right, closed Qualifiers: Encounter type: initial encounter Qualified Code(s): S72.001A - Fracture of unspecified part of neck of right femur, initial encounter for closed fracture Is this a current diagnosis for this admission?: Yes Plan: Patient for surgical intervention by Dr. Hunter today. (2) Acute blood loss anemia Is this a current diagnosis for this admission?: Yes Plan: Will trend closely in the setting of right hip fracture and surgery. Will continue multivitamins and will add vitamin C and start iron supplementation (3) COPD (chronic obstructive pulmonary disease) Qualifiers: COPD type: emphysema Emphysema type: unspecified Qualified Code(s): J43.9 - Emphysema, unspecified Is this a current diagnosis for this admission?: Yes (4) Acute and chronic respiratory failure with hypoxia Is this a current diagnosis for this admission?: Yes Plan: Continue oxygen supplementation and will wean off as tolerated (5) Tobacco abuse Is this a current diagnosis for this admission?: Yes Plan: Will order nicotine patch. Educated about quitting appears to be motivated (6) Hyponatremia Is this a current diagnosis for this admission?: Yes Plan: Patient on SSRI which may be contributing to hyponatremia. We will trend - Time Time Spent with patient: 15-24 minutes Medications reviewed and adjusted accordingly: Yes Anticipated discharge: Acute Rehab Within: within 72 hours - Inpatient Certification Based on my medical assessment, after consideration of the patient's comorbidities, presenting symptoms, or acuity I expect that the services needed warrant INPATIENT care.: Yes I certify that my determination is in accordance with my understanding of Medicare's requirements for reasonable and necessary INPATIENT services [42 CFR 412.3e].: Yes Medical Necessity: Need for Surgery
[2017-08-05] MEDS: CETIRIZINE 10 MG TABLET PO SCH (16:31)
[2017-08-05] MEDS: DOCUSATE SODIUM 100 MG CAPSULE PO SCH ×2 (16:31→17:39)
[2017-08-05] MEDS: CITALOPRAM HYDROBROMIDE 20 MG TABLET PO SCH (16:31)
[2017-08-05] MEDS: LISINOPRIL 10 MG TABLET PO SCH (16:31)
[2017-08-05] MEDS: ASPIRIN 81 MG TABLET, ENT COATED PO SCH (16:39)
[2017-08-05] MEDS: ASCORBIC ACID 500 MG TABLET PO SCH (17:39)
[2017-08-05] MEDS: SENNOSIDES/DOCUSATE 8.6-50 MG 1 EACH TABLET PO SCH (17:39)
[2017-08-05] MEDS: OXYCODONE HCL IR 5 MG TABLET PO PRN (20:06)
[2017-08-05] MEDS: OXYCODONE HCL SR 10 MG TABLET PO SCH (21:25)
[2017-08-05] MEDS: GUAIFENESIN 600 MG TABLET.SA PO SCH (21:26)
[2017-08-05] MEDS: GABAPENTIN 300 MG CAPSULE PO SCH (21:26)
[2017-08-05] MEDS ORDERED: VANCOMYCIN HCL 1,000 MG in DEXTROSE 5%-WATER 250 ML IV ONE (23:45)
[2017-08-06] MEDS: IPRATROPIUM/ALBUTEROL 0.5-2.5 MG/3 ML AMPUL NEB SCH ×4 (01:54→20:08)
[2017-08-06] MEDS: LANSOPRAZOLE 30 MG TAB.RAP.DR PO SCH (05:37)
[2017-08-06] MEDS: OXYCODONE HCL IR 5 MG TABLET PO PRN ×2 (05:37→12:24)
[2017-08-06] MEDS: HEPARIN SOD (PORCINE) 5,000 UNIT/ML 1 ML SYRINGE SUBCUT SCH ×3 (05:38→21:58)
--- NOTE | 2017-08-06 06:52 | PDOC PROGRESS REPORT ---
Subjective Progress Note for:: 08/06/17 Reason For Visit: RIGHT FEMORAL NECK FRACTURE 66-year-old white female postop day 1 from right hip arthroplasty for displaced femoral neck fracture. Patient with minimal complaints this morning. Physical Exam Vital Signs: Temp Pulse Resp BP Pulse Ox 37.2 C 79 20 105/62 98 08/05/17 23:27 08/06/17 02:00 08/06/17 02:00 08/05/17 23:27 08/06/17 02:00 Intake & Output 08/04/17 08/05/17 08/06/17 06:59 06:59 06:59 Intake Total 5170 Output Total 3535 Balance 1635 Weight 66.8 kg General appearance: PRESENT: no acute distress Head exam: PRESENT: normocephalic Respiratory exam: PRESENT: unlabored Cardiovascular exam: PRESENT: RRR Pulses: PRESENT: +1 pedal pulses bilateral Vascular exam: PRESENT: normal capillary refill GI/Abdominal exam: PRESENT: soft Rectal exam: PRESENT: deferred Extremities exam: PRESENT: other - Right hip dressing clean dry and intact. Leg lengths are equal. Distal neurovascular examination is intact. Neurological exam: PRESENT: alert, awake, oriented to person, oriented to place , oriented to time, oriented to situation. ABSENT: motor sensory deficit Psychiatric exam: PRESENT: appropriate affect, normal mood. ABSENT: homicidal ideation, suicidal ideation Skin exam: PRESENT: dry, intact, warm. ABSENT: cyanosis, rash Results Laboratory Results: 08/05/17 06:00 08/05/17 06:00 08/05/17 06:00 Sodium 126.8 L Potassium 5.0 Chloride 93 L Carbon Dioxide 26 Anion Gap 8 BUN 12 Creatinine 0.67 Est GFR ( Amer) > 60 Est GFR (Non-Af Amer) > 60 Glucose 119 H Calcium 9.4 Impressions: Hip/Pelvis X-Ray 08/04/17 23:59 IMPRESSION: Fracture of the right femoral neck. Chest X-Ray 08/05/17 00:00 IMPRESSION: No acute cardiopulmonary findings. Pelvis X-Ray 08/05/17 11:48 IMPRESSION: Right hip replacement in good positioning Status: Imported from PACS Assessment & Plan - Diagnosis (1) Fracture of femoral neck, right, closed Qualifiers: Encounter type: initial encounter Qualified Code(s): S72.001A - Fracture of unspecified part of neck of right femur, initial encounter for closed fracture Is this a current diagnosis for this admission?: Yes Plan: 66-year-old white female postop day 1 right hip arthroplasty with an uneventful postoperative course. Patient will be mobilized with physical therapy and weightbearing as tolerated basis. Anticipate the need for fdc facility placement because the patient lives alone. Social work has been consulted for this. - Time Time Spent with patient: 15-24 minutes Anticipated discharge: SNF Within: when bed available
[2017-08-06 08:04] LABS: ABSOLUTE LYMPHOCYTES (AUTO) 0.8 10^3/uL (0.5-4.7); ABSOLUTE MONOCYTES (AUTO) 0.8 10^3/uL (0.1-1.4); ABSOLUTE NEUT (AUTO) 6.4 10^3/uL (1.7-8.2); BASOPHILS % (AUTO) 0.3 % (0-2); EOSINOPHILS % (AUTO) 0.2 % (0-6); HEMATOCRIT 27.6 % (36.0-47.0); LYMPHOCYTES % (AUTO) 9.8 % (13-45); MEAN CORPUSCULAR HEMOGLOBIN 33.2 pg (27.0-33.4); MEAN CORPUSCULAR HGB CONC 34.6 g/dL (32.0-36.0); MEAN CORPUSCULAR VOLUME 96 fl (80-97); MONOCYTES % (AUTO) 9.7 % (3-13); PLATELET COUNT 200 10^3/uL (150-450); RED BLOOD COUNT 2.87 10^6/uL (3.72-5.28); RED CELL DISTRIBUTION WIDTH 12.6 % (11.5-14.0); TOTAL CELLS COUNTED % (AUTO) 100 %; WHITE BLOOD COUNT 7.9 10^3/uL (4.0-10.5)
[2017-08-06 08:05] LABS: HEMOGLOBIN 9.5 g/dL (12.0-15.5)
[2017-08-06 08:18] LABS: ANION GAP 5 (5-19); BLOOD UREA NITROGEN 13 mg/dL (7-20); CALCIUM 8.3 mg/dL (8.4-10.2); CARBON DIOXIDE 29 mmol/L (22-30); CHLORIDE 92 mmol/L (98-107); GLUCOSE 120 mg/dL (75-110); POTASSIUM 4.3 mmol/L (3.6-5.0); SODIUM 126.1 mmol/L (137-145)
[2017-08-06] MEDS: CITALOPRAM HYDROBROMIDE 20 MG TABLET PO SCH (09:29)
[2017-08-06] MEDS: OXYCODONE HCL SR 10 MG TABLET PO SCH ×2 (09:30→21:57)
[2017-08-06] MEDS: ASCORBIC ACID 500 MG TABLET PO SCH ×2 (09:30→18:03)
[2017-08-06] MEDS: GABAPENTIN 300 MG CAPSULE PO SCH ×2 (09:30→21:56)
[2017-08-06] MEDS: CETIRIZINE 10 MG TABLET PO SCH (09:31)
[2017-08-06] MEDS: PRENATAL VITAMIN W DHA CAPSULE PO SCH (09:32)
[2017-08-06] MEDS: LISINOPRIL 10 MG TABLET PO SCH (09:33)
[2017-08-06] MEDS: GUAIFENESIN 600 MG TABLET.SA PO SCH ×2 (09:34→21:58)
[2017-08-06] MEDS: SENNOSIDES/DOCUSATE 8.6-50 MG 1 EACH TABLET PO SCH ×2 (09:36→18:06)
[2017-08-06] MEDS: DOCUSATE SODIUM 100 MG CAPSULE PO SCH ×2 (09:36→18:06)
[2017-08-06] MEDS ORDERED: ASPIRIN 81 MG TABLET, ENT COATED PO SCH (10:00)
--- NOTE | 2017-08-06 10:40 | EKG REPORT ---
SEVERITY:- ABNORMAL ECG - SINUS RHYTHM MULTIPLE ATRIAL PREMATURE COMPLEXES LOW VOLTAGE IN FRONTAL LEADS BORDERLINE T ABNORMALITIES, ANT-LAT LEADS : Confirmed by: Laurence Hanson 06-Aug-2017 10:39:09
--- NOTE | 2017-08-06 13:22 | PDOC CONSULTATION ---
Consultation Consult Date: 08/05/17 Attending physician:: EVELYN LERMA Consult reason:: Ventricular tachycardia noted on rhythm strips in the ER History of Present Illness Admission Date/PCP: 08/05/17 02:36 JONATHAN MOORE NP Patient complains of: Right hip pain. History of Present Illness: Patient is a 66-year-old white female status post open reduction internal fixation of a left intratrochanteric femur fracture last January now with onset of right hip pain and inability to bear weight. Patient was evaluated in emergency room where a displaced right ft femoral neck fracture was diagnosed. Orthopedics is consulted for fracture management. This history was reviewed and confirmed. The nurse on the floor told me that patient is being referred to me because of short runs of ventricular tachycardia being noted in the ER and also postop but no strips unfortunately been saved. Patient denies any prior history of heart problem. She however has significant COPD. Patient on questioning denied any prior history of syncope, near syncope or any sustained palpitations. Past Medical History Cardiac Medical History: Reports: Hypertension Denies: Coronary Artery Disease, Myocardial Infarction Pulmonary Medical History: Reports: Chronic Obstructive Pulmonary Disease (COPD) , Pneumonia Denies: Asthma, Bronchitis, Tuberculosis Neurological Medical History: Denies: Seizures Malignancy Medical History: Reports: Breast Cancer GI Medical History: Denies: Hepatitis, Hiatal Hernia Musculoskeltal Medical History: Reports: Arthritis Psychiatric Medical History: Reports: Depression Hematology: Denies: Anemia, Sickle Cell Disease Past Surgical History Past Surgical History: Reports: Hysterectomy, Mastectomy - LUMPECTOMY, Orthopedic Surgery - Back surgery 2, open reduction internal fixation left femur fracture 2017, Tubal Ligation Denies: Amputation, Pacemaker Social History Information Source: Patient Lives with: Alone Smoking Status: Former Smoker Frequency of Alcohol Use: Social Hx Recreational Drug Use: No Drugs: None Hx Prescription Drug Abuse: No - Advance Directive Resuscitation Status: Full Code Family History Family History: Hypertension - Father, Malignancy - Mother with lung cancer Parental Family History Reviewed: Yes Children Family History Reviewed: Yes Sibling(s) Family History Reviewed.: Yes Medication/Allergy Home Medications: Albuterol Sulfate [Proair HFA] 2 puff IN Q6HP PRN 02/01/17 Aspirin [Aspirin EC] 81 mg PO DAILY 02/01/17 Budesonide/Formoterol Fumarate [Symbicort 160-4.5 Mcg Inhaler] 2 puff IN BID Cetirizine HCl [Zyrtec 10 mg Tablet] 10 mg PO DAILY 02/01/17 Citalopram Hydrobromide [Celexa] 40 mg PO DAILY 02/01/17 Lisinopril [Zestril] 20 mg PO DAILY 02/01/17 Meloxicam [Mobic] 15 mg PO DAILY 02/01/17 Multivit-Min/Iron/Folic/Lutein [Centrum Silver Women Tablet] 1 tab PO DAILY Pantoprazole Sodium [Protonix] 40 mg PO DAILY 02/01/17 Lorazepam [Ativan 0.5 mg Tablet] 0.5 mg PO BIDP PRN #10 tablet 02/04/17 Gabapentin [Neurontin 300 mg Capsule] 300 mg PO Q12 08/05/17 Guaifenesin [Mucinex] 600 mg PO Q12 08/05/17 Oxycodone HCl 5 mg PO Q12HP PRN 08/05/17 Allergies/Adverse Reactions: No Known Allergies Allergy (Verified 08/05/17 00:08) Review of Systems Review of Systems: Please see history of present illness and past medical history as wall. Constitutional: No fever or chills reported. Head : No recent chronic headaches, recent head injury. Eyes: No recent eye pain, diplopia, redness, discharge, acute visual changes. Ears: No recent chronic ear pain, acute hearing loss, ear discharge. Oral cavity: No recent ulcerations, bleeding, oral cavity discomfort. Neck: No recent acute neck pain reported. Hematologic: No recent easy bruising or bleeding or hematologic malignancy reported. History of breast cancer with mastectomy. Lymphatic: No recent lymphatic malignancy, chronic lymphadenopathy reported yet Cardiovascular system review: See history of present illness. Respiratory system review: No recent chronic cough, hemoptysis, blood clots in the lungs reported. Mild Shortness of breath on exertion Gastrointestinal system review: Negative for any recent acute or chronic abdominal pain, hematemesis, melena, recent change in bowel habits. Genitourinary system review: No recent acute or chronic hematuria, flank pain, UTI etc. reported. Skin system review: Negative for any recent abnormal bruising, no rash, no pruritus reported. Neurologic: No prior history of strokes, mini strokes, seizure disorder. Psychologic: No history of major psychosis or major depression reported. Musculoskeletal: Minor aches and pains reported. Bilateral hip discomfort. Endocrine: No recent polyuria, polydipsia, recent heat or cold intolerance. Physical Exam Vital Signs: Temp Pulse Resp BP Pulse Ox 98.8 F 88 18 102/57 L 94 08/05/17 20:05 08/05/17 20:15 08/05/17 20:15 08/05/17 20:05 08/05/17 20:15 Intake & Output 08/04/17 08/05/17 08/06/17 06:59 06:59 06:59 Intake Total 4550 Output Total 2810 Balance 1740 Exam: GENERAL: well-nourished and in no acute distress. Alert and oriented x3 HEAD: Atraumatic, normocephalic. EYES: Pupils equal round and reactive to light, extraocular movements intact, sclera anicteric, conjunctiva are normal. ENT: TMs normal, nares patent, oropharynx clear without exudates. Moist mucous membranes. No oral ulcerations or bleeding gums noted NECK: supple without lymphadenopathy. Trachea is central. No cervical or axillary lymphadenopathy noted. Carotids are 2+, JVD WNL LUNGS: Respiration seems nonlabored, no significant accessory muscle action noted. Breath sounds clear to auscultation bilaterally and equal noted. No wheezes rales or rhonchi noted. No significant dullness noted on percussion. CHEST: Palpation of the chest wall shows no significant chest wall tenderness. No other significant abnormalities noted. HEART: [place] [employer], No PSH, 1/6 GUILLERMO aortic area, 1/6 whiteside systolic murmur mitral area, no rubs, no gallops. ABDOMEN: Soft, no significant tenderness appreciated, normoactive bowel sounds. No guarding, no rebound. No rigidity noted . No masses appreciated. EXTREMITIES: Pedal pulses are 1-2+, no calf tenderness noted. No clubbing or cyanosis. negative pedal edema noted NEUROLOGICAL: Focused neurological exam showed no significant neurologic deficit. Normal speech, no focal weakness appreciated. PSYCH: Normal mood, normal affect. Judgment and insight within normal limits. SKIN: No significant ecchymosis, skin is noted to be warm. MUSCULOSKELETAL EXAM: No significant acute joint swelling noted. Postsurgical changes noted right hip. Results Laboratory Results: 08/05/17 06:00 08/05/17 06:00 08/05/17 08/05/17 06:00 06:00 WBC 8.6 RBC 3.61 L Hgb 11.8 L Hct 34.0 L MCV 94 MCH 32.8 MCHC 34.9 RDW 12.7 Plt Count 228 Seg Neutrophils % 85.5 H Lymphocytes % 6.8 L Monocytes % 7.0 Eosinophils % 0.3 Basophils % 0.4 Absolute Neutrophils 7.4 Absolute Lymphocytes 0.6 Absolute Monocytes 0.6 Absolute Eosinophils 0.0 Absolute Basophils 0.0 Sodium 126.8 L Potassium 5.0 Chloride 93 L Carbon Dioxide 26 Anion Gap 8 BUN 12 Creatinine 0.67 Est GFR ( Amer) > 60 Est GFR (Non-Af Amer) > 60 Glucose 119 H Calcium 9.4 EKG Comments: Twelve-lead EKG reviewed showed low voltage QRS complex frontal lead, nonprogression of R-wave V1 to V3, minor nonspecific T-wave changes. Impressions: Hip/Pelvis X-Ray 08/04/17 23:59 IMPRESSION: Fracture of the right femoral neck. Chest X-Ray 08/05/17 00:00 IMPRESSION: No acute cardiopulmonary findings. Pelvis X-Ray 08/05/17 11:48 IMPRESSION: Right hip replacement in good positioning Assessment & Plan - Diagnosis (1) Cardiac dysrhythmia, unspecified Qualifiers: Arrhythmia type: unspecified cardiac arrhythmia Qualified Code(s): I49.9 - Cardiac arrhythmia, unspecified Is this a current diagnosis for this admission?: Yes (2) Fracture of femoral neck, right, closed Qualifiers: Encounter type: subsequent encounter Is this a current diagnosis for this admission?: Yes (3) Tobacco abuse Is this a current diagnosis for this admission?: Yes (4) COPD (chronic obstructive pulmonary disease) Qualifiers: COPD type: emphysema Emphysema type: unspecified Qualified Code(s): J43.9 - Emphysema, unspecified Is this a current diagnosis for this admission?: Yes (5) Hypertension Qualifiers: Hypertension type: essential hypertension Qualified Code(s): I10 - Essential (primary) hypertension Is this a current diagnosis for this admission?: Yes - Notes Notes: Cardiac dysrhythmia: Patient is reported to have some short runs of ventricular tachyarrhythmia. However no strips been saved or found in the chart. No one is able to locate it. At this point for risk stratification, will obtain a 2D echocardiogram. Will recommend low-dose beta-lisa therapy. Hopefully patient will be able to tolerate this. Electrolytes are within normal limits. Will check a magnesium level. May consider arterial blood gas. Status post right hip surgery: Currently stable. Tobacco abuse: Patient advised to quit smoking. COPD: Currently stable. Continue current therapeutic regimen. Hypertension: Blood pressure goal 140/90 or less. Will recommend checking lipid panel, BNP level etc. - Time Time Spent: 30 to 50 Minutes - More than 50% of the time spent coordinating care , discussing management plans with involved caregivers. Management plans discussed with involved personnels. Medical decision making was of moderate to high complexity, patient's has multiple comorbidities. Medications reviewed and adjusted accordingly: Yes
--- NOTE | 2017-08-06 13:31 | XCELERA REPORT ---
[address] [address] Transthoracic Echocardiogram Report Name: REGGIE ZHENG Age: 66 yrs Gender: Female : 1950 Patient Status: Inpatient Patient Location: [address] [place] [address] Study Date: 08/06/2017 09:11 AM Height: 63 in Weight: 146 lb BSA: 1.7 m2 Procedure: A complete two-dimensional transthoracic echocardiogram was performed (2D, M-mode, spectral and color flow Doppler). The study was technically adequate with some images being suboptimal in quality. Reason For Study: Ventricular tachycardia Ordering Physician: LAURENCE DELUNA Performed By: Magdalena Stevens Interpretation Summary The left ventricular ejection fraction is normal. There is normal left ventricular wall thickness. The left ventricle is grossly normal size. Doppler measurements suggest impaired left ventricular relaxation, which is associated with grade I/IV or mild diastolic dysfunction Wall motion cannot be accurately commented on, but no definite regional wall motion abnormalities noted. The right ventricular systolic function is normal. The right atrium is normal. The left atrial size is normal. There is no mitral valve stenosis. There is a trace amount of mitral regurgitation There is no aortic valve stenosis No aortic regurgitation is present. There is a trace or physiologic amount of tricuspid regurgitation Tricuspid regurgitation jet envelope not well defined to measure RV systolic pressure accurately. The pulmonic valve is not well visualized. The inferior vena cava appeared normal and decreased < 50% with respiration (RAP 10-15 mmHg) There is no pericardial effusion. The atrial septum is aneurysmal. Interarterial septum not well visualized and not well dopplered. Cannot comment on ASD/PFO presence. MMode/2D Measurements & Calculations RVDd: 2.2 cm LVIDd: 4.5 cm FS: 42.2 % Ao root diam: 2.5 cm IVSd: 0.83 cm LVIDs: 2.6 cm EDV(Teich): 94.6 ml LVPWd: 0.78 cm ESV(Teich): 25.3 ml Ao root area: 4.8 cm2 EF(Teich): 73.3 % Doppler Measurements & Calculations MV E max prabhu: MV dec slope: Ao V2 max: LV V1 max P.8 cm/sec 171.3 cm/sec 8.4 mmHg MV A max prabhu: 439.7 cm/sec2 Ao max PG: LV V1 max: 86.4 cm/sec MV dec time: 11.7 mmHg 144.7 cm/sec MV E/A: 0.80 0.16 sec PA V2 max: TR max prabhu: 87.2 cm/sec 190.4 cm/sec PA max PG: TR max P.5 mmHg 3.0 mmHg Left Ventricle The left ventricle is grossly normal size. There is normal left ventricular wall thickness. The left ventricular ejection fraction is normal. Doppler measurements suggest impaired left ventricular relaxation, which is associated with grade I/IV or mild diastolic dysfunction. Wall motion cannot be accurately commented on, but no definite regional wall motion abnormalities noted. Right Ventricle The right ventricle is grossly normal size. There is normal right ventricular wall thickness. The right ventricular systolic function is normal. Atria The right atrium is normal. The left atrial size is normal. Interarterial septum not well visualized and not well dopplered. Cannot comment on ASD/PFO presence. The atrial septum is aneurysmal. Mitral Valve The mitral valve is grossly normal. There is no mitral valve stenosis. There is a trace amount of mitral regurgitation. Aortic Valve The aortic valve is grossly normal. There is no aortic valve stenosis. No aortic regurgitation is present. Tricuspid Valve The tricuspid valve is not well visualized, but is grossly normal. There is no tricuspid stenosis. There is a trace or physiologic amount of tricuspid regurgitation. Tricuspid regurgitation jet envelope not well defined to measure RV systolic pressure accurately. Pulmonic Valve The pulmonic valve is not well visualized. Great Vessels The aortic root is not well visualized but is probably normal size. The inferior vena cava appeared normal and decreased < 50% with respiration (RAP 10-15 mmHg). Effusions There is no pericardial effusion. : LUARENCE DELUNA > Laurence Deluna
[2017-08-06] MEDS ORDERED: METOPROLOL SUCCINATE 25 MG TAB.SR.24H PO ONE (14:00)
[2017-08-06 14:08] LABS: CHOLESTEROL 136.42 mg/dL (0-200); TRIGLYCERIDES 56 mg/dL (<150)
[2017-08-06 14:19] LABS: DIRECT LDL 51 mg/dL (<100)
--- NOTE | 2017-08-06 16:36 | PDOC PROGRESS REPORT ---
Subjective Progress Note for:: 08/06/17 Subjective:: Patient complains of feeling a little bit dizzy when trying to get out of bed. She is still slightly thirsty. Review of system All organ systems evaluated and negative except as in subjective All significant laboratories and diagnostics have been reviewed Reason For Visit: RIGHT FEMORAL NECK FRACTURE Physical Exam Vital Signs: Temp Pulse Resp BP Pulse Ox 99.5 F 85 16 109/58 L 94 08/06/17 12:00 08/06/17 14:21 08/06/17 14:21 08/06/17 12:00 08/06/17 15:42 Intake & Output 08/05/17 08/06/17 08/07/17 06:59 06:59 06:59 Intake Total 5170 Output Total 3535 Balance 1635 Weight 66.8 kg General appearance: PRESENT: cooperative, thin Head exam: PRESENT: atraumatic, normocephalic Eye exam: PRESENT: conjunctiva pale, EOMI, PERRLA Ear exam: PRESENT: normal external ear exam Neck exam: PRESENT: full ROM. ABSENT: JVD, lymphadenopathy, tenderness Respiratory exam: PRESENT: clear to auscultation lainey Cardiovascular exam: PRESENT: RRR. ABSENT: diastolic murmur, systolic murmur GI/Abdominal exam: PRESENT: normal bowel sounds, soft. ABSENT: tenderness Extremities exam: PRESENT: full ROM. ABSENT: pedal edema Musculoskeletal exam: PRESENT: ambulatory Neurological exam: PRESENT: alert, awake, oriented to person, oriented to place , oriented to time, oriented to situation, CN II-XII grossly intact Psychiatric exam: PRESENT: appropriate affect, normal mood Skin exam: PRESENT: pallor Results Laboratory Results: 08/06/17 07:39 08/06/17 07:39 08/06/17 08/06/17 08/06/17 07:39 07:39 07:39 WBC 7.9 RBC 2.87 L Hgb 9.5 L D Hct 27.6 L MCV 96 MCH 33.2 MCHC 34.6 RDW 12.6 Plt Count 200 Seg Neutrophils % 80.0 H Lymphocytes % 9.8 L Monocytes % 9.7 Eosinophils % 0.2 Basophils % 0.3 Absolute Neutrophils 6.4 Absolute Lymphocytes 0.8 Absolute Monocytes 0.8 Absolute Eosinophils 0.0 Absolute Basophils 0.0 Sodium 126.1 L Potassium 4.3 Chloride 92 L Carbon Dioxide 29 Anion Gap 5 BUN 13 Creatinine 0.68 Est GFR ( Amer) > 60 Est GFR (Non-Af Amer) > 60 Glucose 120 H Calcium 8.3 L Magnesium 1.5 L Triglycerides 56 Cholesterol 136.42 LDL Cholesterol Direct 51 VLDL Cholesterol 11.0 HDL Cholesterol 72 08/06/17 14:46 WBC RBC Hgb Hct MCV MCH MCHC RDW Plt Count Seg Neutrophils % Lymphocytes % Monocytes % Eosinophils % Basophils % Absolute Neutrophils Absolute Lymphocytes Absolute Monocytes Absolute Eosinophils Absolute Basophils Sodium Potassium Chloride Carbon Dioxide Anion Gap BUN Creatinine Est GFR ( Amer) Est GFR (Non-Af Amer) Glucose Calcium Magnesium 1.6 Triglycerides Cholesterol LDL Cholesterol Direct VLDL Cholesterol HDL Cholesterol 08/06/17 08/06/17 07:39 07:39 Troponin I < 0.012 NT-Pro-B Natriuret Pep 765 Impressions: Hip/Pelvis X-Ray 08/04/17 23:59 IMPRESSION: Fracture of the right femoral neck. Chest X-Ray 08/05/17 00:00 IMPRESSION: No acute cardiopulmonary findings. Pelvis X-Ray 08/05/17 11:48 IMPRESSION: Right hip replacement in good positioning Assessment & Plan - Diagnosis (1) Fracture of femoral neck, right, closed Qualifiers: Encounter type: subsequent encounter Is this a current diagnosis for this admission?: Yes Plan: And doing well after surgery. Continue PT (2) Acute blood loss anemia Is this a current diagnosis for this admission?: Yes Plan: Will continue trending closely in the setting of right hip fracture and surgery. Will continue multivitamins, vitamin C and iron supplementation (3) COPD (chronic obstructive pulmonary disease) Qualifiers: COPD type: emphysema Emphysema type: unspecified Qualified Code(s): J43.9 - Emphysema, unspecified Is this a current diagnosis for this admission?: Yes Plan: Nebulizer treatments as needed. Stable (4) Acute and chronic respiratory failure with hypoxia Is this a current diagnosis for this admission?: Yes Plan: Continue oxygen supplementation and will wean off as tolerated (5) Tobacco abuse Is this a current diagnosis for this admission?: Yes Plan: Will order nicotine patch. Educated about quitting appears to be motivated (6) Hyponatremia Is this a current diagnosis for this admission?: Yes Plan: Patient on SSRI which may be contributing to hyponatremia. We will trend - Time Time Spent with patient: 15-24 minutes Anticipated discharge: Acute Rehab Within: within 72 hours - Inpatient Certification Based on my medical assessment, after consideration of the patient's comorbidities, presenting symptoms, or acuity I expect that the services needed warrant INPATIENT care.: Yes I certify that my determination is in accordance with my understanding of Medicare's requirements for reasonable and necessary INPATIENT services [42 CFR 412.3e].: Yes Medical Necessity: Need Close Monitoring Due to Risk of Patient Decompensation
[2017-08-06] MEDS: ASPIRIN 81 MG TABLET, ENT COATED PO SCH (18:03)
[2017-08-06] MEDS: FERROUS SULFATE 325 MG TABLET PO SCH (18:04)
[2017-08-06] MEDS: METOPROLOL SUCCINATE 25 MG TAB.SR.24H PO SCH (21:56)
[2017-08-07] MEDS ORDERED: NORMAL SALINE 1000 ML 1,000 ML IV ONE ×2 (00:15→02:00)
[2017-08-07] MEDS ORDERED: NORMAL SALINE 1000 ML 1,000 ML IV PRN ×2 (01:58→05:36)
[2017-08-07] MEDS: IPRATROPIUM/ALBUTEROL 0.5-2.5 MG/3 ML AMPUL NEB SCH ×4 (02:11→20:09)
[2017-08-07] MEDS: IPRATROPIUM/ALBUTEROL 0.5-2.5 MG/3 ML AMPUL NEB PRN ×2 (02:33→05:05)
[2017-08-07] MEDS ORDERED: FUROSEMIDE INJ/PF 20 MG/2 ML SDV ONE (05:03)
[2017-08-07] MEDS: LANSOPRAZOLE 30 MG TAB.RAP.DR PO SCH (06:12)
[2017-08-07] MEDS: HEPARIN SOD (PORCINE) 5,000 UNIT/ML 1 ML SYRINGE SUBCUT SCH ×3 (06:14→21:51)
[2017-08-07 06:30] LABS: ABSOLUTE EOSINOPHILS # (AUTO) 0.1 10^3/uL (0.0-0.6); ABSOLUTE LYMPHOCYTES (AUTO) 0.5 10^3/uL (0.5-4.7); ABSOLUTE MONOCYTES (AUTO) 0.7 10^3/uL (0.1-1.4); ABSOLUTE NEUT (AUTO) 6.2 10^3/uL (1.7-8.2); BASOPHILS % (AUTO) 0.2 % (0-2); EOSINOPHILS % (AUTO) 0.7 % (0-6); HEMATOCRIT 24.3 % (36.0-47.0); HEMOGLOBIN 8.6 g/dL (12.0-15.5); LYMPHOCYTES % (AUTO) 7.2 % (13-45); MEAN CORPUSCULAR HEMOGLOBIN 33.7 pg (27.0-33.4); MEAN CORPUSCULAR HGB CONC 35.4 g/dL (32.0-36.0); MEAN CORPUSCULAR VOLUME 95 fl (80-97); MONOCYTES % (AUTO) 8.7 % (3-13); PLATELET COUNT 148 10^3/uL (150-450); RED BLOOD COUNT 2.55 10^6/uL (3.72-5.28); RED CELL DISTRIBUTION WIDTH 12.6 % (11.5-14.0); SEGMENTED NEUTROPHILS % (AUTO) 83.2 % (42-78); TOTAL CELLS COUNTED % (AUTO) 100 %; WHITE BLOOD COUNT 7.5 10^3/uL (4.0-10.5)
[2017-08-07 06:45] LABS: ANION GAP 5 (5-19); BLOOD UREA NITROGEN 21 mg/dL (7-20); CALCIUM 7.3 mg/dL (8.4-10.2); CARBON DIOXIDE 23 mmol/L (22-30); CHLORIDE 97 mmol/L (98-107); GLUCOSE 101 mg/dL (75-110); POTASSIUM 4.2 mmol/L (3.6-5.0); SODIUM 124.6 mmol/L (137-145)
--- NOTE | 2017-08-07 09:31 | EKG REPORT ---
SEVERITY:- BORDERLINE ECG - SINUS RHYTHM LOW VOLTAGE IN FRONTAL LEADS BORDERLINE T ABNORMALITIES, ANTERIOR LEADS : Confirmed by: Laurence Hanson 07-Aug-2017 09:31:01
[2017-08-07] MEDS: ASCORBIC ACID 500 MG TABLET PO SCH ×2 (09:38→17:34)
[2017-08-07] MEDS: CETIRIZINE 10 MG TABLET PO SCH (09:39)
[2017-08-07] MEDS: FERROUS SULFATE 325 MG TABLET PO SCH ×2 (09:39→17:34)
[2017-08-07] MEDS: PRENATAL VITAMIN W DHA CAPSULE PO SCH (09:40)
[2017-08-07] MEDS: CITALOPRAM HYDROBROMIDE 20 MG TABLET PO SCH (09:40)
[2017-08-07] MEDS: GABAPENTIN 300 MG CAPSULE PO SCH ×2 (09:42→21:16)
[2017-08-07] MEDS: OXYCODONE HCL SR 10 MG TABLET PO SCH (09:42)
[2017-08-07] MEDS: GUAIFENESIN 600 MG TABLET.SA PO SCH ×2 (09:43→21:16)
[2017-08-07] MEDS: DOCUSATE SODIUM 100 MG CAPSULE PO SCH (09:46)
[2017-08-07] MEDS: LISINOPRIL 10 MG TABLET PO SCH (09:46)
[2017-08-07] MEDS: SENNOSIDES/DOCUSATE 8.6-50 MG 1 EACH TABLET PO SCH (09:46)
--- NOTE | 2017-08-07 13:53 | PDOC PROGRESS REPORT ---
Subjective Progress Note for:: 08/07/17 Subjective:: Patient complains of being constipated Review of system All organ systems evaluated and negative except as in subjective All significant laboratories and diagnostics have been reviewed Reason For Visit: RIGHT FEMORAL NECK FRACTURE Physical Exam Vital Signs: Temp Pulse Resp BP Pulse Ox 98.5 F 82 17 79/46 L 95 08/07/17 03:46 08/07/17 07:00 08/07/17 05:05 08/07/17 03:46 08/07/17 05:05 Intake & Output 08/06/17 08/07/17 08/08/17 06:59 06:59 06:59 Intake Total 5170 1589 Output Total 3535 600 Balance 1635 989 Weight 66.8 kg 66.8 kg General appearance: PRESENT: no acute distress, cooperative, thin Head exam: PRESENT: atraumatic, normocephalic Eye exam: PRESENT: conjunctiva pink, EOMI, PERRLA Ear exam: PRESENT: normal external ear exam Mouth exam: PRESENT: moist Neck exam: PRESENT: full ROM. ABSENT: JVD, lymphadenopathy, tenderness Respiratory exam: PRESENT: clear to auscultation lainey Cardiovascular exam: PRESENT: RRR. ABSENT: diastolic murmur, systolic murmur GI/Abdominal exam: PRESENT: normal bowel sounds, soft. ABSENT: tenderness Extremities exam: PRESENT: full ROM. ABSENT: pedal edema Musculoskeletal exam: PRESENT: ambulatory Neurological exam: PRESENT: alert, awake, oriented to person, oriented to place , oriented to time, oriented to situation, CN II-XII grossly intact Psychiatric exam: PRESENT: appropriate affect, normal mood Skin exam: PRESENT: intact, normal color Results Laboratory Results: 08/07/17 06:03 08/07/17 06:03 08/06/17 08/06/17 08/07/17 07:39 14:46 06:03 WBC 7.5 RBC 2.55 L Hgb 8.6 L Hct 24.3 L MCV 95 MCH 33.7 H MCHC 35.4 RDW 12.6 Plt Count 148 L Seg Neutrophils % 83.2 H Lymphocytes % 7.2 L Monocytes % 8.7 Eosinophils % 0.7 Basophils % 0.2 Absolute Neutrophils 6.2 Absolute Lymphocytes 0.5 Absolute Monocytes 0.7 Absolute Eosinophils 0.1 Absolute Basophils 0.0 Sodium Potassium Chloride Carbon Dioxide Anion Gap BUN Creatinine Est GFR ( Amer) Est GFR (Non-Af Amer) Glucose Calcium Magnesium 1.6 Triglycerides 56 Cholesterol 136.42 LDL Cholesterol Direct 51 VLDL Cholesterol 11.0 HDL Cholesterol 72 08/07/17 06:03 WBC RBC Hgb Hct MCV MCH MCHC RDW Plt Count Seg Neutrophils % Lymphocytes % Monocytes % Eosinophils % Basophils % Absolute Neutrophils Absolute Lymphocytes Absolute Monocytes Absolute Eosinophils Absolute Basophils Sodium 124.6 L Potassium 4.2 Chloride 97 L Carbon Dioxide 23 Anion Gap 5 BUN 21 H Creatinine 1.17 Est GFR ( Amer) 56 L Est GFR (Non-Af Amer) 46 L Glucose 101 Calcium 7.3 L Magnesium Triglycerides Cholesterol LDL Cholesterol Direct VLDL Cholesterol HDL Cholesterol 08/06/17 08/06/17 07:39 07:39 Troponin I < 0.012 NT-Pro-B Natriuret Pep 765 Impressions: Hip/Pelvis X-Ray 08/04/17 23:59 IMPRESSION: Fracture of the right femoral neck. Chest X-Ray 08/05/17 00:00 IMPRESSION: No acute cardiopulmonary findings. Pelvis X-Ray 08/05/17 11:48 IMPRESSION: Right hip replacement in good positioning Assessment & Plan - Diagnosis (1) Fracture of femoral neck, right, closed Qualifiers: Encounter type: subsequent encounter Is this a current diagnosis for this admission?: Yes Plan: Doing well after surgery. Continue PT (2) Acute blood loss anemia Is this a current diagnosis for this admission?: Yes Plan: Will continue trending closely in the setting of right hip fracture and surgery. Will continue multivitamins, vitamin C and iron supplementation. If below 8 in a.m. will proceed with transfusion (3) COPD (chronic obstructive pulmonary disease) Qualifiers: COPD type: emphysema Emphysema type: unspecified Qualified Code(s): J43.9 - Emphysema, unspecified Is this a current diagnosis for this admission?: Yes Plan: Nebulizer treatments as needed. Stable (4) Acute and chronic respiratory failure with hypoxia Is this a current diagnosis for this admission?: Yes Plan: Continue oxygen supplementation and will wean off as tolerated (5) Tobacco abuse Is this a current diagnosis for this admission?: Yes Plan: Will continue nicotine patch. Educated about quitting appears to be motivated (6) Hyponatremia Is this a current diagnosis for this admission?: Yes Plan: Patient on SSRI which may be contributing to hyponatremia. We will trend. Patient states that is a long-standing problem on her (7) Hypotension Qualifiers: Hypotension type: unspecified hypotension type Qualified Code(s): I95.9 - Hypotension, unspecified Is this a current diagnosis for this admission?: Yes Plan: Will discontinue lisinopril and will continue low-dose Toprol since was added for prevention of V. tach (8) V-tach Is this a current diagnosis for this admission?: Yes Plan: Result. Patient on Toprol-XL as per cardiology. Will add mag oxide - Time Time Spent with patient: 15-24 minutes Medications reviewed and adjusted accordingly: Yes Anticipated discharge: Acute Rehab Within: within 48 hours - Inpatient Certification Based on my medical assessment, after consideration of the patient's comorbidities, presenting symptoms, or acuity I expect that the services needed warrant INPATIENT care.: Yes I certify that my determination is in accordance with my understanding of Medicare's requirements for reasonable and necessary INPATIENT services [42 CFR 412.3e].: Yes Medical Necessity: Need Close Monitoring Due to Risk of Patient Decompensation, Need For IV Fluids, Need for Nebulizer Therapy and Monitoring of Response, Need for Pain Control
[2017-08-07] MEDS: LACTULOSE SYRUP 20 GM/30 ML UDCUP PO SCH (17:34)
[2017-08-07] MEDS: MAGNESIUM OXIDE 400 MG TABLET PO SCH (17:34)
[2017-08-07] MEDS: ASPIRIN 81 MG TABLET, ENT COATED PO SCH (17:34)
[2017-08-07] MEDS: METOPROLOL SUCCINATE 25 MG TAB.SR.24H PO SCH ×2 (21:13→22:33)
[2017-08-07] MEDS: OXYCODONE HCL IR 5 MG TABLET PO PRN (22:28)
[2017-08-08] MEDS: IPRATROPIUM/ALBUTEROL 0.5-2.5 MG/3 ML AMPUL NEB SCH ×4 (02:15→20:52)
[2017-08-08 06:10] LABS: ANION GAP 5 (5-19); BLOOD UREA NITROGEN 19 mg/dL (7-20); CALCIUM 7.7 mg/dL (8.4-10.2); CARBON DIOXIDE 23 mmol/L (22-30); CHLORIDE 100 mmol/L (98-107); GLUCOSE 101 mg/dL (75-110); POTASSIUM 4.5 mmol/L (3.6-5.0); SODIUM 128.3 mmol/L (137-145)
[2017-08-08] MEDS: LANSOPRAZOLE 30 MG TAB.RAP.DR PO SCH (06:34)
[2017-08-08] MEDS: HEPARIN SOD (PORCINE) 5,000 UNIT/ML 1 ML SYRINGE SUBCUT SCH ×3 (06:36→21:26)
--- NOTE | 2017-08-08 06:42 | PDOC PROGRESS REPORT ---
Subjective Progress Note for:: 08/08/17 Reason For Visit: RIGHT FEMORAL NECK FRACTURE 66-year-old white female now postop day 2 right hip arthroplasty for femoral neck fracture. Patient made limited progress with physical therapy yesterday. Physical Exam Vital Signs: Temp Pulse Resp BP Pulse Ox 37.3 C 97 20 90/55 L 95 08/08/17 04:09 08/08/17 04:09 08/08/17 04:09 08/08/17 04:09 08/08/17 04:09 Intake & Output 08/06/17 08/07/17 08/08/17 06:59 06:59 06:59 Intake Total 5170 1589 1975 Output Total 3535 600 1500 Balance 1635 989 475 Weight 66.8 kg 66.8 kg 67.2 kg General appearance: PRESENT: no acute distress Head exam: PRESENT: normocephalic Respiratory exam: PRESENT: unlabored Cardiovascular exam: PRESENT: RRR Pulses: PRESENT: +1 pedal pulses bilateral Vascular exam: PRESENT: normal capillary refill GI/Abdominal exam: PRESENT: soft Rectal exam: PRESENT: deferred Extremities exam: PRESENT: other - Leg lengths are equal. Distal neurovascular examination is intact. Right hip dressing with a small amount of old bloody drainage which is dry. Neurological exam: PRESENT: alert, awake, oriented to person, oriented to place , oriented to time, oriented to situation. ABSENT: motor sensory deficit Psychiatric exam: PRESENT: appropriate affect, normal mood. ABSENT: homicidal ideation, suicidal ideation Skin exam: PRESENT: dry, intact, warm. ABSENT: cyanosis, rash Results Laboratory Results: 08/08/17 05:23 08/08/17 05:23 08/07/17 08/07/17 08/08/17 06:03 09:16 05:23 WBC Cancelled RBC Cancelled Hgb Cancelled Hct Cancelled MCV Cancelled MCH Cancelled MCHC Cancelled RDW Cancelled Plt Count Cancelled Seg Neutrophils % Cancelled Lymphocytes % Cancelled Monocytes % Cancelled Eosinophils % Cancelled Basophils % Cancelled Absolute Neutrophils Cancelled Absolute Lymphocytes Cancelled Absolute Monocytes Cancelled Absolute Eosinophils Cancelled Absolute Basophils Cancelled Sodium 124.6 L Potassium 4.2 Chloride 97 L Carbon Dioxide 23 Anion Gap 5 BUN 21 H Creatinine 1.17 Est GFR ( Amer) 56 L Est GFR (Non-Af Amer) 46 L Glucose 101 Calcium 7.3 L Magnesium Blood Type O POSITIVE Antibody Screen NEGATIVE 08/08/17 05:23 WBC RBC Hgb Hct MCV MCH MCHC RDW Plt Count Seg Neutrophils % Lymphocytes % Monocytes % Eosinophils % Basophils % Absolute Neutrophils Absolute Lymphocytes Absolute Monocytes Absolute Eosinophils Absolute Basophils Sodium 128.3 L Potassium 4.5 Chloride 100 Carbon Dioxide 23 Anion Gap 5 BUN 19 Creatinine 0.84 Est GFR ( Amer) > 60 Est GFR (Non-Af Amer) > 60 Glucose 101 Calcium 7.7 L Magnesium 2.0 Blood Type Antibody Screen 08/06/17 08/06/17 07:39 07:39 Troponin I < 0.012 NT-Pro-B Natriuret Pep 765 Impressions: Hip/Pelvis X-Ray 08/04/17 23:59 IMPRESSION: Fracture of the right femoral neck. Chest X-Ray 08/05/17 00:00 IMPRESSION: No acute cardiopulmonary findings. Pelvis X-Ray 08/05/17 11:48 IMPRESSION: Right hip replacement in good positioning Status: Imported from PACS Assessment & Plan - Diagnosis (1) Fracture of femoral neck, right, closed Qualifiers: Encounter type: subsequent encounter Is this a current diagnosis for this admission?: Yes Plan: Patient mobilizing with physical therapy. Social work working on placement at [facility]. Patient is stable to be transferred to a nursing home facility from an orthopedic standpoint. (2) Acute blood loss anemia Is this a current diagnosis for this admission?: Yes Plan: Patient had 2 units of blood typed and crossed yesterday. Transfusion did not occur. Hematocrit pending for this morning? - Time Time Spent with patient: 15-24 minutes Anticipated discharge: SNF Within: when bed available
[2017-08-08 07:12] LABS: ABSOLUTE EOSINOPHILS # (AUTO) 0.1 10^3/uL (0.0-0.6); ABSOLUTE LYMPHOCYTES (AUTO) 0.5 10^3/uL (0.5-4.7); ABSOLUTE MONOCYTES (AUTO) 0.6 10^3/uL (0.1-1.4); ABSOLUTE NEUT (AUTO) 5.7 10^3/uL (1.7-8.2); BASOPHILS % (AUTO) 0.6 % (0-2); EOSINOPHILS % (AUTO) 1.5 % (0-6); HEMATOCRIT 23.7 % (36.0-47.0); HEMOGLOBIN 8.1 g/dL (12.0-15.5); LYMPHOCYTES % (AUTO) 7.7 % (13-45); MEAN CORPUSCULAR HEMOGLOBIN 32.7 pg (27.0-33.4); MEAN CORPUSCULAR HGB CONC 34.3 g/dL (32.0-36.0); MEAN CORPUSCULAR VOLUME 95 fl (80-97); MONOCYTES % (AUTO) 8.2 % (3-13); PLATELET COUNT 177 10^3/uL (150-450); RED BLOOD COUNT 2.48 10^6/uL (3.72-5.28); RED CELL DISTRIBUTION WIDTH 12.8 % (11.5-14.0); TOTAL CELLS COUNTED % (AUTO) 100 %; WHITE BLOOD COUNT 6.9 10^3/uL (4.0-10.5)
[2017-08-08] MEDS: FERROUS SULFATE 325 MG TABLET PO SCH ×2 (08:11→17:22)
[2017-08-08] MEDS: OXYCODONE HCL IR 5 MG TABLET PO PRN ×2 (08:11→17:21)
[2017-08-08] MEDS: PRENATAL VITAMIN W DHA CAPSULE PO SCH (09:16)
[2017-08-08] MEDS: METOPROLOL SUCCINATE 25 MG TAB.SR.24H PO SCH ×2 (09:24→21:25)
[2017-08-08] MEDS: CETIRIZINE 10 MG TABLET PO SCH (09:24)
[2017-08-08] MEDS: ASCORBIC ACID 500 MG TABLET PO SCH ×2 (09:25→17:21)
[2017-08-08] MEDS: GUAIFENESIN 600 MG TABLET.SA PO SCH ×2 (09:25→21:25)
[2017-08-08] MEDS: CITALOPRAM HYDROBROMIDE 20 MG TABLET PO SCH (09:25)
[2017-08-08] MEDS: MAGNESIUM OXIDE 400 MG TABLET PO SCH ×2 (09:25→17:21)
[2017-08-08] MEDS: GABAPENTIN 300 MG CAPSULE PO SCH ×2 (09:25→21:25)
[2017-08-08] MEDS: LACTULOSE SYRUP 20 GM/30 ML UDCUP PO SCH ×2 (09:26→17:20)
[2017-08-08] MEDS ORDERED: POLYETHYLENE GLYCOL 3350 POWDER 17 GM/1 PACKET PO SCH (10:00)
--- NOTE | 2017-08-08 17:08 | PDOC PROGRESS REPORT ---
Subjective Progress Note for:: 08/08/17 Subjective:: Patient complains of feeling weak. Was not able to participate in physical therapy because of weakness. Patient informed that we will proceed to transfuse 1 unit of packed red blood cell and in agreement Review of system All organ systems evaluated and negative except as in subjective All significant laboratories and diagnostics have been reviewed Reason For Visit: RIGHT FEMORAL NECK FRACTURE Physical Exam Vital Signs: Temp Pulse Resp BP Pulse Ox 99.8 F 91 18 106/61 94 08/08/17 15:00 08/08/17 15:00 08/08/17 15:00 08/08/17 15:00 08/08/17 15:00 Intake & Output 08/07/17 08/08/17 08/09/17 06:59 06:59 06:59 Intake Total 1589 1975 360 Output Total 600 1500 Balance 989 475 360 Weight 66.8 kg 67.2 kg General appearance: PRESENT: no acute distress, cooperative, thin Head exam: PRESENT: atraumatic, normocephalic Eye exam: PRESENT: conjunctiva pale, EOMI, PERRLA Ear exam: PRESENT: normal external ear exam Neck exam: PRESENT: full ROM. ABSENT: JVD, lymphadenopathy, tenderness Respiratory exam: PRESENT: clear to auscultation lainey Cardiovascular exam: PRESENT: RRR. ABSENT: diastolic murmur, systolic murmur Vascular exam: PRESENT: pallor GI/Abdominal exam: PRESENT: normal bowel sounds, soft. ABSENT: tenderness Extremities exam: PRESENT: full ROM. ABSENT: pedal edema Musculoskeletal exam: PRESENT: ambulatory Neurological exam: PRESENT: alert, awake, oriented to person, oriented to place , oriented to time, oriented to situation, CN II-XII grossly intact Psychiatric exam: PRESENT: appropriate affect, normal mood Skin exam: PRESENT: intact, normal color Results Laboratory Results: 08/08/17 06:52 08/08/17 05:23 08/07/17 08/08/17 08/08/17 09:16 05:23 05:23 WBC Cancelled RBC Cancelled Hgb Cancelled Hct Cancelled MCV Cancelled MCH Cancelled MCHC Cancelled RDW Cancelled Plt Count Cancelled Seg Neutrophils % Cancelled Lymphocytes % Cancelled Monocytes % Cancelled Eosinophils % Cancelled Basophils % Cancelled Absolute Neutrophils Cancelled Absolute Lymphocytes Cancelled Absolute Monocytes Cancelled Absolute Eosinophils Cancelled Absolute Basophils Cancelled Sodium 128.3 L Potassium 4.5 Chloride 100 Carbon Dioxide 23 Anion Gap 5 BUN 19 Creatinine 0.84 Est GFR ( Amer) > 60 Est GFR (Non-Af Amer) > 60 Glucose 101 Calcium 7.7 L Magnesium 2.0 Blood Type O POSITIVE Antibody Screen NEGATIVE 08/08/17 06:52 WBC 6.9 RBC 2.48 L Hgb 8.1 L Hct 23.7 L MCV 95 MCH 32.7 MCHC 34.3 RDW 12.8 Plt Count 177 Seg Neutrophils % 82.0 H Lymphocytes % 7.7 L Monocytes % 8.2 Eosinophils % 1.5 Basophils % 0.6 Absolute Neutrophils 5.7 Absolute Lymphocytes 0.5 Absolute Monocytes 0.6 Absolute Eosinophils 0.1 Absolute Basophils 0.0 Sodium Potassium Chloride Carbon Dioxide Anion Gap BUN Creatinine Est GFR ( Amer) Est GFR (Non-Af Amer) Glucose Calcium Magnesium Blood Type Antibody Screen 08/06/17 08/06/17 07:39 07:39 Troponin I < 0.012 NT-Pro-B Natriuret Pep 765 Impressions: Hip/Pelvis X-Ray 08/04/17 23:59 IMPRESSION: Fracture of the right femoral neck. Chest X-Ray 08/05/17 00:00 IMPRESSION: No acute cardiopulmonary findings. Pelvis X-Ray 08/05/17 11:48 IMPRESSION: Right hip replacement in good positioning Assessment & Plan - Diagnosis (1) Fracture of femoral neck, right, closed Qualifiers: Encounter type: subsequent encounter Is this a current diagnosis for this admission?: Yes Plan: Doing well after surgery. Continue PT. Hopefully once hemoglobin is may be able to participate more in PT (2) Acute blood loss anemia Is this a current diagnosis for this admission?: Yes Plan: Will transfuse 1 unit of packed red blood cell. Trend hemoglobin. Continue iron supplementation, vitamin C multivitamins (3) COPD (chronic obstructive pulmonary disease) Qualifiers: COPD type: emphysema Emphysema type: unspecified Qualified Code(s): J43.9 - Emphysema, unspecified Is this a current diagnosis for this admission?: Yes Plan: Nebulizer treatments as needed. Stable (4) Acute and chronic respiratory failure with hypoxia Is this a current diagnosis for this admission?: Yes Plan: Continue oxygen supplementation and will wean off as tolerated (5) Tobacco abuse Is this a current diagnosis for this admission?: Yes Plan: Will continue nicotine patch. Educated about quitting appears to be motivated (6) Hyponatremia Is this a current diagnosis for this admission?: Yes Plan: Patient on SSRI which may be contributing to hyponatremia. Patient states that is a long-standing problem on her (7) Hypotension Qualifiers: Hypotension type: unspecified hypotension type Qualified Code(s): I95.9 - Hypotension, unspecified Is this a current diagnosis for this admission?: Yes Plan: Will discontinue lisinopril and will continue low-dose Toprol since was added for prevention of V. tach (8) V-tach Is this a current diagnosis for this admission?: Yes Plan: Resolved. Patient on Toprol-XL as per cardiology. Continue mag oxide - Time Time Spent with patient: 15-24 minutes Medications reviewed and adjusted accordingly: Yes Anticipated discharge: Acute Rehab Within: when bed available - Inpatient Certification Based on my medical assessment, after consideration of the patient's comorbidities, presenting symptoms, or acuity I expect that the services needed warrant INPATIENT care.: Yes I certify that my determination is in accordance with my understanding of Medicare's requirements for reasonable and necessary INPATIENT services [42 CFR 412.3e].: Yes Medical Necessity: Need Close Monitoring Due to Risk of Patient Decompensation
[2017-08-08] MEDS: ASPIRIN 81 MG TABLET, ENT COATED PO SCH (17:21)
[2017-08-08] MEDS: IPRATROPIUM/ALBUTEROL 0.5-2.5 MG/3 ML AMPUL NEB PRN (17:28)
[2017-08-08 18:22] LABS: HEMATOCRIT 29.3 % (36.0-47.0); MEAN CORPUSCULAR HEMOGLOBIN 32.3 pg (27.0-33.4); MEAN CORPUSCULAR HGB CONC 34.9 g/dL (32.0-36.0); MEAN CORPUSCULAR VOLUME 93 fl (80-97); PLATELET COUNT 192 10^3/uL (150-450); RED BLOOD COUNT 3.16 10^6/uL (3.72-5.28); RED CELL DISTRIBUTION WIDTH 15.2 % (11.5-14.0)
[2017-08-08 18:45] LABS: HEMOGLOBIN 10.2 g/dL (12.0-15.5)
[2017-08-09] MEDS: IPRATROPIUM/ALBUTEROL 0.5-2.5 MG/3 ML AMPUL NEB SCH ×4 (02:07→20:32)
[2017-08-09] MEDS: HEPARIN SOD (PORCINE) 5,000 UNIT/ML 1 ML SYRINGE SUBCUT SCH ×2 (05:59→14:48)
[2017-08-09] MEDS: LANSOPRAZOLE 30 MG TAB.RAP.DR PO SCH (05:59)
[2017-08-09] MEDS: OXYCODONE HCL IR 5 MG TABLET PO PRN ×2 (06:00→12:22)
--- NOTE | 2017-08-09 06:48 | PDOC PROGRESS REPORT ---
Subjective Progress Note for:: 08/09/17 Reason For Visit: RIGHT FEMORAL NECK FRACTURE 66-year-old white female postop day 4 from right hip arthroplasty for femoral neck fracture. Postoperative course has been slow because of pain as well as anemia Physical Exam Vital Signs: Temp Pulse Resp BP Pulse Ox 36.8 C 86 13 115/62 95 08/09/17 03:08 08/09/17 03:08 08/09/17 03:08 08/09/17 03:08 08/09/17 03:08 Intake & Output 08/07/17 08/08/17 08/09/17 06:59 06:59 06:59 Intake Total 1589 1975 1200 Output Total 600 1500 1300 Balance 989 475 -100 Weight 66.8 kg 67.2 kg 67.5 kg General appearance: PRESENT: no acute distress Head exam: PRESENT: normocephalic Respiratory exam: PRESENT: unlabored Cardiovascular exam: PRESENT: RRR Pulses: PRESENT: +1 pedal pulses bilateral Vascular exam: PRESENT: normal capillary refill GI/Abdominal exam: PRESENT: soft Rectal exam: PRESENT: deferred Musculoskeletal exam: PRESENT: other - Right hip dressing has been changed. Leg lengths are equal. Distal neurovascular examination is intact. Neurological exam: PRESENT: alert, awake, oriented to person, oriented to place , oriented to time, oriented to situation. ABSENT: motor sensory deficit Psychiatric exam: PRESENT: appropriate affect, normal mood. ABSENT: homicidal ideation, suicidal ideation Skin exam: PRESENT: dry, intact, warm. ABSENT: cyanosis, rash Results Laboratory Results: 08/08/17 18:09 08/08/17 05:23 08/07/17 08/08/17 08/08/17 09:16 06:52 18:09 WBC 6.9 7.0 RBC 2.48 L 3.16 L Hgb 8.1 L 10.2 L D Hct 23.7 L 29.3 L MCV 95 93 MCH 32.7 32.3 MCHC 34.3 34.9 RDW 12.8 15.2 H Plt Count 177 192 Seg Neutrophils % 82.0 H Lymphocytes % 7.7 L Monocytes % 8.2 Eosinophils % 1.5 Basophils % 0.6 Absolute Neutrophils 5.7 Absolute Lymphocytes 0.5 Absolute Monocytes 0.6 Absolute Eosinophils 0.1 Absolute Basophils 0.0 Blood Type O POSITIVE Antibody Screen NEGATIVE 08/06/17 08/06/17 07:39 07:39 Troponin I < 0.012 NT-Pro-B Natriuret Pep 765 Impressions: Hip/Pelvis X-Ray 08/04/17 23:59 IMPRESSION: Fracture of the right femoral neck. Chest X-Ray 08/05/17 00:00 IMPRESSION: No acute cardiopulmonary findings. Pelvis X-Ray 08/05/17 11:48 IMPRESSION: Right hip replacement in good positioning Status: Imported from PACS Assessment & Plan - Diagnosis (1) Fracture of femoral neck, right, closed Qualifiers: Encounter type: subsequent encounter Is this a current diagnosis for this admission?: Yes Plan: Awaiting longterm facility placement in the interim patient's undergoing rehabilitation with physical therapy and weightbearing as tolerated basis. (2) Acute blood loss anemia Is this a current diagnosis for this admission?: Yes Plan: Hematocrit 29% after 1 unit transfusion - Time Time Spent with patient: 15-24 minutes Anticipated discharge: SNF Within: within 24 hours
[2017-08-09] MEDS ORDERED: BISACODYL 10 MG SUPP.RECT PR ONE (09:00)
[2017-08-09] MEDS ORDERED: METOCLOPRAMIDE HCL INJ/PF 10 MG/2 ML SDV IV ONE (09:00)
[2017-08-09] MEDS: CITALOPRAM HYDROBROMIDE 20 MG TABLET PO SCH (09:44)
[2017-08-09] MEDS: GABAPENTIN 300 MG CAPSULE PO SCH (09:44)
[2017-08-09] MEDS: ASCORBIC ACID 500 MG TABLET PO SCH ×2 (09:44→17:31)
[2017-08-09] MEDS: MAGNESIUM OXIDE 400 MG TABLET PO SCH ×2 (09:44→17:31)
[2017-08-09] MEDS: FERROUS SULFATE 325 MG TABLET PO SCH ×2 (09:44→17:31)
[2017-08-09] MEDS: GUAIFENESIN 600 MG TABLET.SA PO SCH (09:44)
[2017-08-09] MEDS: PRENATAL VITAMIN W DHA CAPSULE PO SCH (09:44)
[2017-08-09] MEDS: CETIRIZINE 10 MG TABLET PO SCH (09:44)
[2017-08-09] MEDS: METOPROLOL SUCCINATE 25 MG TAB.SR.24H PO SCH (09:45)
[2017-08-09] MEDS: POLYETHYLENE GLYCOL 3350 POWDER 17 GM/1 PACKET PO SCH ×2 (09:46→17:33)
[2017-08-09] MEDS: LACTULOSE SYRUP 20 GM/30 ML UDCUP PO SCH ×2 (09:47→17:33)
--- NOTE | 2017-08-09 11:56 | PDOC PROGRESS REPORT ---
Subjective Progress Note for:: 08/09/17 Subjective:: Patient relates that she still constipated. She was not able to sleep well last night because people will come in and out. Still does not know if she is weak. She will now once she starts physical therapy. Patient inform about improvement of hemoglobin after 1 unit of blood Review of system All organ systems evaluated and negative except as in subjective All significant laboratories and diagnostics have been reviewed Reason For Visit: RIGHT FEMORAL NECK FRACTURE Physical Exam Vital Signs: Temp Pulse Resp BP Pulse Ox 98.2 F 86 13 115/62 95 08/09/17 03:08 08/09/17 03:08 08/09/17 03:08 08/09/17 03:08 08/09/17 03:08 Intake & Output 08/07/17 08/08/17 08/09/17 06:59 06:59 06:59 Intake Total 1589 1975 1200 Output Total 600 1500 1300 Balance 989 475 -100 Weight 66.8 kg 67.2 kg 67.5 kg General appearance: PRESENT: no acute distress, cooperative, thin Head exam: PRESENT: atraumatic, normocephalic Eye exam: PRESENT: conjunctiva pink, EOMI, PERRLA Ear exam: PRESENT: normal external ear exam Neck exam: PRESENT: full ROM. ABSENT: JVD, lymphadenopathy, tenderness Respiratory exam: PRESENT: clear to auscultation lainey Cardiovascular exam: PRESENT: RRR. ABSENT: diastolic murmur, systolic murmur GI/Abdominal exam: PRESENT: normal bowel sounds, soft. ABSENT: tenderness Extremities exam: PRESENT: full ROM. ABSENT: pedal edema Musculoskeletal exam: PRESENT: ambulatory Neurological exam: PRESENT: alert, awake, oriented to person, oriented to place , oriented to time, oriented to situation, CN II-XII grossly intact Psychiatric exam: PRESENT: appropriate affect, normal mood Skin exam: PRESENT: intact, normal color Results Laboratory Results: 08/08/17 18:09 08/08/17 05:23 08/07/17 08/08/17 08/08/17 09:16 06:52 18:09 WBC 6.9 7.0 RBC 2.48 L 3.16 L Hgb 8.1 L 10.2 L D Hct 23.7 L 29.3 L MCV 95 93 MCH 32.7 32.3 MCHC 34.3 34.9 RDW 12.8 15.2 H Plt Count 177 192 Seg Neutrophils % 82.0 H Lymphocytes % 7.7 L Monocytes % 8.2 Eosinophils % 1.5 Basophils % 0.6 Absolute Neutrophils 5.7 Absolute Lymphocytes 0.5 Absolute Monocytes 0.6 Absolute Eosinophils 0.1 Absolute Basophils 0.0 Blood Type O POSITIVE Antibody Screen NEGATIVE 08/06/17 08/06/17 07:39 07:39 Troponin I < 0.012 NT-Pro-B Natriuret Pep 765 Impressions: Hip/Pelvis X-Ray 08/04/17 23:59 IMPRESSION: Fracture of the right femoral neck. Chest X-Ray 08/05/17 00:00 IMPRESSION: No acute cardiopulmonary findings. Pelvis X-Ray 08/05/17 11:48 IMPRESSION: Right hip replacement in good positioning Assessment & Plan - Diagnosis (1) Fracture of femoral neck, right, closed Qualifiers: Encounter type: subsequent encounter Is this a current diagnosis for this admission?: Yes Plan: Doing well after surgery. Continue PT. For rehab pending to improvement of constipation and complaints of weakness (2) Acute blood loss anemia Is this a current diagnosis for this admission?: Yes Plan: Due to fracture. Improved after transfusion of 1 unit of packed red blood cell. Continue iron supplementation, vitamin C multivitamins (3) COPD (chronic obstructive pulmonary disease) Qualifiers: COPD type: emphysema Emphysema type: unspecified Qualified Code(s): J43.9 - Emphysema, unspecified Is this a current diagnosis for this admission?: Yes Plan: Nebulizer treatments as needed. Stable (4) Acute and chronic respiratory failure with hypoxia Is this a current diagnosis for this admission?: Yes Plan: Continue oxygen supplementation and will wean off as tolerated (5) Tobacco abuse Is this a current diagnosis for this admission?: Yes Plan: Will continue nicotine patch. Educated about quitting appears to be motivated (6) Hyponatremia Is this a current diagnosis for this admission?: Yes Plan: Patient on SSRI which may be contributing to hyponatremia. Patient states that is a long-standing problem on her (7) Hypotension Qualifiers: Hypotension type: unspecified hypotension type Qualified Code(s): I95.9 - Hypotension, unspecified Is this a current diagnosis for this admission?: Yes Plan: Resolved (8) V-tach Is this a current diagnosis for this admission?: Yes Plan: Resolved. Patient on Toprol-XL as per cardiology. Continue mag oxide - Time Time Spent with patient: 15-24 minutes Medications reviewed and adjusted accordingly: Yes Anticipated discharge: Acute Rehab Within: within 24 hours - Inpatient Certification Based on my medical assessment, after consideration of the patient's comorbidities, presenting symptoms, or acuity I expect that the services needed warrant INPATIENT care.: Yes I certify that my determination is in accordance with my understanding of Medicare's requirements for reasonable and necessary INPATIENT services [42 CFR 412.3e].: Yes Medical Necessity: Need Close Monitoring Due to Risk of Patient Decompensation
[2017-08-09] MEDS: METOCLOPRAMIDE HCL INJ/PF 10 MG/2 ML SDV IV SCH (14:48)
[2017-08-09] MEDS: ASPIRIN 81 MG TABLET, ENT COATED PO SCH (17:31)
[2017-08-09] MEDS ORDERED: PHARMACY COMMUNICATION ORDER MC NR (19:00)
--- NOTE | 2017-08-09 19:00 | Progress Note ---
Provider Note Provider Note: Patient developed vomiting and was still unable to pass stool. She also developed urinary retentions. Orderes were given to keep patient NPO, CT abdomen /pelvis, NG tube, KUB. Signed off to administrative services assistantDr Wilkes
[2017-08-09] MEDS ORDERED: ZOLPIDEM TARTRATE 5 MG TABLET NG PRN (19:30)
[2017-08-09] MEDS ORDERED: ACETAMINOPHEN 325 MG TABLET NG PRN (19:30)
[2017-08-09] MEDS ORDERED: LORAZEPAM 0.5 MG TABLET NG PRN (19:30)
[2017-08-09] MEDS ORDERED: MAG HYDROX/AL HYDROX/SIMETH SUSP 30 ML UDCUP NG PRN (19:30)
[2017-08-09] MEDS ORDERED: OXYCODONE HCL IR 5 MG TABLET NG PRN (19:30)
[2017-08-09] MEDS ORDERED: ONDANSETRON 4 MG TAB.RAPDIS NG PRN (19:30)
--- NOTE | 2017-08-09 20:07 | PDOC PROGRESS REPORT ---
Subjective Progress Note for:: 08/08/17 Subjective:: Patient seen on morning rounds on the fifth of this month.. 2D echo results were reviewed. Patient seems to be doing better with gradual improvement. Pt is denying any chest arm or neck discomfort. Patient denying any PND, orthopnea. Patient denied any sustained palpitations, dizziness, syncope, near syncope. Patient denying any fever chills. Patient denying any other significant discomfort. Patient is maintaining sinus rhythm. No further evidence of V. tach noted. Review of systems: Rest review of systems negative. Medications: Medications have been reviewed. Reason For Visit: RIGHT FEMORAL NECK FRACTURE Physical Exam Vital Signs: Temp Pulse Resp BP Pulse Ox 98.3 F 91 14 113/62 98 08/08/17 20:00 08/08/17 20:00 08/08/17 20:00 08/08/17 20:00 08/08/17 20:00 Intake & Output 08/07/17 08/08/17 08/09/17 06:59 06:59 06:59 Intake Total 1589 1975 900 Output Total 600 1500 600 Balance 989 475 300 Weight 66.8 kg 67.2 kg Exam: GENERAL: well-nourished and in no acute distress. Alert and oriented x3 HEAD: Atraumatic, normocephalic. EYES: Pupils equal round and reactive to light, extraocular movements intact, sclera anicteric, conjunctiva are normal. ENT: TMs normal, nares patent, oropharynx clear without exudates. Moist mucous membranes. No oral ulcerations or bleeding gums noted NECK: supple without lymphadenopathy. Trachea is central. No cervical or axillary lymphadenopathy noted. Carotids are 2+, JVD WNL LUNGS: Respiration seems nonlabored, no significant accessory muscle action noted. Breath sounds clear to auscultation bilaterally and equal noted. No wheezes rales or rhonchi noted. No significant dullness noted on percussion. CHEST: Palpation of the chest wall shows no significant chest wall tenderness. No other significant abnormalities noted. HEART: [facility], No PSH, 1/6 GUILLERMO aortic area, 1/6 whiteside systolic murmur mitral area, no rubs, no gallops. ABDOMEN: Soft, no significant tenderness appreciated, normoactive bowel sounds. No guarding, no rebound. No rigidity noted . No masses appreciated. EXTREMITIES: Pedal pulses are 1-2+, no calf tenderness noted. No clubbing or cyanosis. negative pedal edema noted NEUROLOGICAL: Focused neurological exam showed no significant neurologic deficit. Normal speech, no focal weakness appreciated. PSYCH: Normal mood, normal affect. Judgment and insight within normal limits. SKIN: No significant ecchymosis, skin is noted to be warm. MUSCULOSKELETAL EXAM: No significant acute joint swelling noted. Postsurgical changes noted right hip. Results Laboratory Results: 08/08/17 18:09 08/08/17 05:23 08/07/17 08/08/17 08/08/17 09:16 05:23 05:23 WBC Cancelled RBC Cancelled Hgb Cancelled Hct Cancelled MCV Cancelled MCH Cancelled MCHC Cancelled RDW Cancelled Plt Count Cancelled Seg Neutrophils % Cancelled Lymphocytes % Cancelled Monocytes % Cancelled Eosinophils % Cancelled Basophils % Cancelled Absolute Neutrophils Cancelled Absolute Lymphocytes Cancelled Absolute Monocytes Cancelled Absolute Eosinophils Cancelled Absolute Basophils Cancelled Sodium 128.3 L Potassium 4.5 Chloride 100 Carbon Dioxide 23 Anion Gap 5 BUN 19 Creatinine 0.84 Est GFR ( Amer) > 60 Est GFR (Non-Af Amer) > 60 Glucose 101 Calcium 7.7 L Magnesium 2.0 Blood Type O POSITIVE Antibody Screen NEGATIVE 08/08/17 08/08/17 06:52 18:09 WBC 6.9 7.0 RBC 2.48 L 3.16 L Hgb 8.1 L 10.2 L D Hct 23.7 L 29.3 L MCV 95 93 MCH 32.7 32.3 MCHC 34.3 34.9 RDW 12.8 15.2 H Plt Count 177 192 Seg Neutrophils % 82.0 H Lymphocytes % 7.7 L Monocytes % 8.2 Eosinophils % 1.5 Basophils % 0.6 Absolute Neutrophils 5.7 Absolute Lymphocytes 0.5 Absolute Monocytes 0.6 Absolute Eosinophils 0.1 Absolute Basophils 0.0 Sodium Potassium Chloride Carbon Dioxide Anion Gap BUN Creatinine Est GFR ( Amer) Est GFR (Non-Af Amer) Glucose Calcium Magnesium Blood Type Antibody Screen 08/06/17 08/06/17 07:39 07:39 Troponin I < 0.012 NT-Pro-B Natriuret Pep 765 Impressions: Hip/Pelvis X-Ray 08/04/17 23:59 IMPRESSION: Fracture of the right femoral neck. Chest X-Ray 08/05/17 00:00 IMPRESSION: No acute cardiopulmonary findings. Pelvis X-Ray 08/05/17 11:48 IMPRESSION: Right hip replacement in good positioning Assessment & Plan - Diagnosis (1) Cardiac dysrhythmia, unspecified Qualifiers: Arrhythmia type: unspecified cardiac arrhythmia Qualified Code(s): I49.9 - Cardiac arrhythmia, unspecified Is this a current diagnosis for this admission?: Yes (2) Fracture of femoral neck, right, closed Qualifiers: Encounter type: subsequent encounter Is this a current diagnosis for this admission?: Yes (3) Tobacco abuse Is this a current diagnosis for this admission?: Yes (4) COPD (chronic obstructive pulmonary disease) Qualifiers: COPD type: emphysema Emphysema type: unspecified Qualified Code(s): J43.9 - Emphysema, unspecified Is this a current diagnosis for this admission?: Yes (5) Hypertension Qualifiers: Hypertension type: essential hypertension Qualified Code(s): I10 - Essential (primary) hypertension Is this a current diagnosis for this admission?: Yes - Notes Notes: No further evidence of ventricular tachyarrhythmia noted. 2D echo showed well- preserved LVEF therefore patient felt to be at relatively low risk category. Patient has multiple other medical issues however currently is stable from cardiac standpoint. Will sign off. Please reconsult if needed. - Time Time with patient: 15-25 minutes - CODE STATUS was discussed, patient remains full code. Surrogate decision-maker unchanged. Multiple medical problems were addressed. More than 50% of the time spent coordinating care, discussing management plans with involved caregivers. Management plans discussed with involved personnels. Medical decision making was of moderate to high complexity , patient's has multiple comorbidities. Medications reviewed and adjusted accordingly: Yes
[2017-08-10] MEDS: HEPARIN SOD (PORCINE) 5,000 UNIT/ML 1 ML SYRINGE SUBCUT SCH ×4 (00:04→21:44)
[2017-08-10] MEDS: METOCLOPRAMIDE HCL INJ/PF 10 MG/2 ML SDV IV SCH ×5 (00:04→21:14)
[2017-08-10] MEDS: IPRATROPIUM/ALBUTEROL 0.5-2.5 MG/3 ML AMPUL NEB PRN ×2 (00:11→02:22)
--- NOTE | 2017-08-10 00:41 | RADIOLOGY REPORT (SQ) ---
EXAM DESCRIPTION: CT ABD/PELVIS WITH IV ONLY COMPLETED DATE/TIME: 08/09/2017 11:09 pm REASON FOR STUDY: vomiting/constipation/??SBO COMPARISON: None. TECHNIQUE: CT scan of the abdomen and pelvis performed using helical scanning technique with dynamic intravenous contrast injection. No oral contrast. Images reviewed with lung, soft tissue, and bone windows. Reconstructed coronal and sagittal MPR images reviewed. Delayed images for evaluation of the urinary system also acquired. All images stored on PACS. All CT scanners at this facility use dose modulation, iterative reconstruction, and/or weight based d osing when appropriate to reduce radiation dose to as low as reasonably achievable (ALARA). [facility]: Dose Right [facility]: CareDose [facility]: Dose Right [facility]: Teradose 4D [facility]: [place] CONTRAST TYPE AND DOSE: contrast/concentration: Isovue 370.00 mg/ml; Total Contrast Delivered: 98.2 ml; Total Saline Delivered: 82.1 ml RENAL FUNCTION: GFR > 60. RADIATION DOSE: CT Rad equipment meets quality standard of care and radiation dose reduction techniq ues were employed. CTDIvol: 7.7 - 10.4 mGy. DLP: 912 mGy-cm.. LIMITATIONS: None. FINDINGS: LOWER CHEST: Patchy consolidation in the left lower lobe. No pleural effusion. LIVER: Normal size. No masses. No dilated ducts. SPLEEN: Normal size. No focal lesions. PANCREAS: No masses. No significant calcifications. No adjacent inflammation or peripancreatic fluid collections. Pancreatic duct not dilated. GALLBLADDER: No identified stones by CT criteria. No inflammatory changes to suggest cholecystitis. ADRENAL GLANDS: No significant masses or asymmetry. RIGHT KIDNEY AND URETER: No solid masses. No significant calcifications. No hydronephrosis or hyd roureter. LEFT KIDNEY AND URETER: No solid masses. No significant calcifications. No hydronephrosis or hydr oureter. AORTA AND VESSELS: No aneurysm. No dissection. Renal arteries, SMA, celiac without stenosis. RETROPERITONEUM: No retroperitoneal adenopathy, hemorrhage or masses. BOWEL AND PERITONEAL CAVITY: Diffusely dilated small bowel with multiple air-fluid levels, no distinc t transition point is identified. Multiple colonic air-fluid levels are noted as well. No distinct bowel wall thickening is identified or free fluid. APPENDIX: Normal. PELVIS: Prior hysterectomy. No free fluid. Normal bladder. ABDOMINAL WALL: No masses. No hernias. BONES: No acute findings. OTHER: No other significant finding. IMPRESSION: Patchy consolidation in the left lower lobe. Diffusely dilated small bowel with multipl e air-fluid levels, no distinct transition point is identified. Multiple colonic air-fluid levels are noted as well. No distinct bowel wall thickening is identified or free fluid. This appearance may represent developing obstruction or ileus. TECHNICAL DOCUMENTATION: JOB ID: [id number] Quality ID # [id number]: Final reports with documentation of one or more dose reduction techniques (e.g., Au tomated exposure control, adjustment of the mA and/or kV according to patient size, use of iterative reconstruction technique) 2010 [employer]- All Rights Reserved Reading location - IP/workstation name: [employer]
[2017-08-10] MEDS: GABAPENTIN 300 MG CAPSULE NG SCH ×3 (00:44→22:56)
[2017-08-10] MEDS: GUAIFENESIN SYRP 200 MG/10 ML UDC NG SCH ×3 (00:44→21:44)
[2017-08-10] MEDS: METOPROLOL SUCCINATE 25 MG TAB.SR.24H PO SCH ×3 (00:44→21:44)
[2017-08-10] MEDS: IPRATROPIUM/ALBUTEROL 0.5-2.5 MG/3 ML AMPUL NEB SCH ×4 (02:19→20:04)
[2017-08-10] MEDS: NORMAL SALINE 1000 ML 1,000 ML IV PRN ×2 (02:39→23:51)
[2017-08-10] MEDS: LANSOPRAZOLE 30 MG TAB.RAP.DR NG SCH (05:25)
--- NOTE | 2017-08-10 07:48 | PDOC PROGRESS REPORT ---
Subjective Progress Note for:: 08/10/17 Reason For Visit: RIGHT FEMORAL NECK FRACTURE 66-year-old white female status post right hip arthroplasty for femoral neck fracture. Patient began complaining of nausea and vomiting yesterday and abdominal CT scan is consistent with an ileus. Physical Exam Vital Signs: Temp Pulse Resp BP Pulse Ox 36.9 C 99 17 127/63 H 95 08/10/17 03:42 08/10/17 07:00 08/10/17 03:42 08/10/17 03:42 08/10/17 03:42 Intake & Output 08/09/17 08/10/17 08/11/17 06:59 06:59 06:59 Intake Total 1200 1045 Output Total 1300 500 Balance -100 545 Weight 67.5 kg 67.2 kg General appearance: PRESENT: no acute distress Head exam: PRESENT: normocephalic Respiratory exam: PRESENT: unlabored Cardiovascular exam: PRESENT: RRR Pulses: PRESENT: +1 pedal pulses bilateral Vascular exam: PRESENT: normal capillary refill GI/Abdominal exam: PRESENT: soft Rectal exam: PRESENT: deferred Extremities exam: PRESENT: other - Right hip dressing with considerable serous drainage. Dressing is changed. Incision is well approximated radha. There is minimal erythema. There is minimal tenderness. Psychiatric exam: PRESENT: appropriate affect, normal mood. ABSENT: homicidal ideation, suicidal ideation Skin exam: PRESENT: dry, intact, warm. ABSENT: cyanosis, rash Results Laboratory Results: 08/08/17 18:09 08/08/17 05:23 08/06/17 08/06/17 07:39 07:39 Troponin I < 0.012 NT-Pro-B Natriuret Pep 765 Impressions: Hip/Pelvis X-Ray 08/04/17 23:59 IMPRESSION: Fracture of the right femoral neck. Chest X-Ray 08/05/17 00:00 IMPRESSION: No acute cardiopulmonary findings. Pelvis X-Ray 08/05/17 11:48 IMPRESSION: Right hip replacement in good positioning Abdomen/Pelvis CT 08/09/17 00:00 IMPRESSION: Patchy consolidation in the left lower lobe. Diffusely dilated small bowel with multiple air-fluid levels, no distinct transition point is identified. Multiple colonic air-fluid levels are noted as well. No distinct bowel wall thickening is identified or free fluid. This appearance may represent developing obstruction or ileus. Status: Imported from PACS Assessment & Plan - Diagnosis (1) Fracture of femoral neck, right, closed Qualifiers: Encounter type: subsequent encounter Is this a current diagnosis for this admission?: Yes Plan: Stable walking with physical therapy. Dressing change as needed. (2) Acute blood loss anemia Is this a current diagnosis for this admission?: Yes Plan: Hematocrit stable at 29% (3) Ileus Is this a current diagnosis for this admission?: Yes Plan: Patient is now n.p.o. and receiving maintenance IV fluids. Continue with a course of observation for additional 24 hours - Time Time Spent with patient: 15-24 minutes Anticipated discharge: SNF Within: Other
[2017-08-10] MEDS ORDERED: BISACODYL 10 MG SUPP.RECT PR ONE (08:30)
[2017-08-10] MEDS ORDERED: LISINOPRIL 10 MG TABLET NG SCH (10:00)
[2017-08-10] MEDS ORDERED: MORPHINE SULFATE 10 MG/ML INJ IV PRN (10:14)
[2017-08-10] MEDS ORDERED: LORAZEPAM INJ 2 MG/1 ML VIAL IV ONE (11:15)
[2017-08-10] MEDS ORDERED: ENALAPRILAT DIHYDRATE INJ/PF 1.25 MG/1 ML SDV IV ONE (11:30)
[2017-08-10] MEDS ORDERED: METOPROLOL TARTRATE PF/INJ 5 MG/5 ML SDV IV ONE (11:30)
[2017-08-10] MEDS: PIPERACILLIN SODIUM/TAZOBACTAM 3.375 GM in NORMAL SALINE 100 ML IV SCH ×3 (13:29→23:50)
[2017-08-10] MEDS: CITALOPRAM HYDROBROMIDE 20 MG TABLET NG SCH (13:33)
[2017-08-10] MEDS: FERROUS SULFATE LIQUID 300 MG/5 ML UDC NG SCH ×2 (13:33→17:22)
[2017-08-10] MEDS: POLYETHYLENE GLYCOL 3350 POWDER 17 GM/1 PACKET NG SCH ×2 (13:33→17:22)
[2017-08-10] MEDS: CETIRIZINE 10 MG TABLET NG SCH (13:33)
[2017-08-10] MEDS: MAGNESIUM OXIDE 400 MG TABLET NG SCH ×2 (13:33→17:22)
[2017-08-10] MEDS: PRENATAL VITAMIN W DHA CAPSULE PO SCH (13:33)
[2017-08-10] MEDS: ASCORBIC ACID 500 MG TABLET NG SCH ×2 (13:33→17:22)
[2017-08-10] MEDS: ENALAPRILAT DIHYDRATE INJ/PF 1.25 MG/1 ML SDV IV SCH ×2 (13:33→21:44)
[2017-08-10] MEDS: LACTULOSE SYRUP 20 GM/30 ML UDCUP NG SCH ×2 (13:33→17:22)
[2017-08-10] MEDS: METOPROLOL TARTRATE PF/INJ 5 MG/5 ML SDV IV SCH ×2 (13:33→21:44)
--- NOTE | 2017-08-10 14:16 | PDOC PROGRESS REPORT ---
Subjective Progress Note for:: 08/10/17 Subjective:: Patient relates remains constipated. NG tube was not placed since patient felt was going the wrong way. Review of system All organ systems evaluated and negative except as in subjective All significant laboratories and diagnostics have been reviewed Reason For Visit: RIGHT FEMORAL NECK FRACTURE Physical Exam Vital Signs: Temp Pulse Resp BP Pulse Ox 98.5 F 99 17 127/63 H 95 08/10/17 03:42 08/10/17 07:00 08/10/17 03:42 08/10/17 03:42 08/10/17 03:42 Intake & Output 08/09/17 08/10/17 08/11/17 06:59 06:59 06:59 Intake Total 1200 1045 Output Total 1300 500 Balance -100 545 Weight 67.5 kg 67.2 kg General appearance: PRESENT: no acute distress, cooperative Head exam: PRESENT: atraumatic, normocephalic Eye exam: PRESENT: conjunctiva pink, EOMI, PERRLA Neck exam: PRESENT: full ROM. ABSENT: JVD, lymphadenopathy, tenderness Respiratory exam: PRESENT: crackles, decreased breath sounds Cardiovascular exam: PRESENT: RRR. ABSENT: diastolic murmur, systolic murmur GI/Abdominal exam: PRESENT: distended, hypoactive bowel sounds, rigid Extremities exam: PRESENT: full ROM. ABSENT: pedal edema Musculoskeletal exam: PRESENT: ambulatory Neurological exam: PRESENT: alert, awake, oriented to person, oriented to place , oriented to time, oriented to situation, CN II-XII grossly intact Psychiatric exam: PRESENT: appropriate affect, normal mood Skin exam: PRESENT: intact, normal color Results Laboratory Results: 08/08/17 18:09 08/08/17 05:23 08/06/17 08/06/17 07:39 07:39 Troponin I < 0.012 NT-Pro-B Natriuret Pep 765 Impressions: Hip/Pelvis X-Ray 08/04/17 23:59 IMPRESSION: Fracture of the right femoral neck. Chest X-Ray 08/05/17 00:00 IMPRESSION: No acute cardiopulmonary findings. Pelvis X-Ray 08/05/17 11:48 IMPRESSION: Right hip replacement in good positioning Abdomen/Pelvis CT 08/09/17 00:00 IMPRESSION: Patchy consolidation in the left lower lobe. Diffusely dilated small bowel with multiple air-fluid levels, no distinct transition point is identified. Multiple colonic air-fluid levels are noted as well. No distinct bowel wall thickening is identified or free fluid. This appearance may represent developing obstruction or ileus. Assessment & Plan - Diagnosis (1) Fracture of femoral neck, right, closed Qualifiers: Encounter type: subsequent encounter Is this a current diagnosis for this admission?: Yes Plan: Tolerated procedure well but having problems moving her bowels. Continue pain management. (2) Acute blood loss anemia Is this a current diagnosis for this admission?: Yes Plan: Due to fracture. Improved after transfusion of 1 unit of packed red blood cell. Continue iron supplementation, vitamin C multivitamins when able to tolerate oral. (3) COPD (chronic obstructive pulmonary disease) Qualifiers: COPD type: emphysema Emphysema type: unspecified Qualified Code(s): J43.9 - Emphysema, unspecified Is this a current diagnosis for this admission?: Yes Plan: Nebulizer treatments as needed. Stable (4) Acute and chronic respiratory failure with hypoxia Is this a current diagnosis for this admission?: Yes Plan: Continue oxygen supplementation and will wean off as tolerated (5) Tobacco abuse Is this a current diagnosis for this admission?: Yes Plan: Will continue nicotine patch. Educated about quitting appears to be motivated (6) Hyponatremia Is this a current diagnosis for this admission?: Yes Plan: Patient on SSRI which may be contributing to hyponatremia. Patient states that is a long-standing problem on her (7) Hypotension Qualifiers: Hypotension type: unspecified hypotension type Qualified Code(s): I95.9 - Hypotension, unspecified Is this a current diagnosis for this admission?: Yes Plan: Resolved (8) V-tach Is this a current diagnosis for this admission?: Yes Plan: Resolved. To place on low dose lopressor IV since NPO. (9) Ileus Is this a current diagnosis for this admission?: Yes Plan: Patient was premedicated with Ativan and NG tube was placed successfully. Will keep patient n.p.o. Continue Reglan IV and fluids and to consult surgery (10) PNA (pneumonia) Qualifiers: Laterality: left Lung location: lower lobe of lung Is this a current diagnosis for this admission?: Yes Plan: To place on zosyn - Time Time Spent with patient: 15-24 minutes Medications reviewed and adjusted accordingly: Yes Anticipated discharge: Acute Rehab Within: Other - unable to tell at this time due to new events - Inpatient Certification Based on my medical assessment, after consideration of the patient's comorbidities, presenting symptoms, or acuity I expect that the services needed warrant INPATIENT care.: Yes I certify that my determination is in accordance with my understanding of Medicare's requirements for reasonable and necessary INPATIENT services [42 CFR 412.3e].: Yes Medical Necessity: Need Close Monitoring Due to Risk of Patient Decompensation, Need for IV Antibiotics
[2017-08-10] MEDS: ASPIRIN 81 MG TABLET, CHEWABLE NG SCH (16:49)
--- NOTE | 2017-08-10 22:49 | PDOC CONSULTATION ---
Consultation Consult Date: 08/10/17 Consult reason:: Ileus vs obstruction History of Present Illness Admission Date/PCP: 08/05/17 02:36 JONATHAN MOORE NP History of Present Illness: Pt had hip surgery about 5 days ago. Yesterday pt apparenty noted abdominal distention. Had Ct scan of abdomen which showd ileus vs obstruction. Pt felt abdominal discomfort but felt a lot better after NGT placement today. NGT drained about 700 ccs. She claims she passed a little flatus today. Past Medical History Cardiac Medical History: Reports: Hypertension Denies: Coronary Artery Disease, Myocardial Infarction Pulmonary Medical History: Reports: Chronic Obstructive Pulmonary Disease (COPD) , Pneumonia Denies: Asthma, Bronchitis, Tuberculosis Neurological Medical History: Denies: Seizures Malignancy Medical History: Reports: Breast Cancer GI Medical History: Denies: Hepatitis, Hiatal Hernia Musculoskeltal Medical History: Reports: Arthritis Psychiatric Medical History: Reports: Depression Hematology: Denies: Anemia, Sickle Cell Disease Past Surgical History Past Surgical History: Reports: Hysterectomy, Mastectomy - LUMPECTOMY, Orthopedic Surgery - Back surgery 2, open reduction internal fixation left femur fracture 2017, Tubal Ligation Denies: Amputation, Pacemaker Social History Lives with: Alone Smoking Status: Former Smoker Frequency of Alcohol Use: Social Hx Recreational Drug Use: No Drugs: None Hx Prescription Drug Abuse: No - Advance Directive Resuscitation Status: Full Code Family History Family History: Hypertension - Father, Malignancy - Mother with lung cancer Parental Family History Reviewed: Yes - + hypertension Children Family History Reviewed: No Sibling(s) Family History Reviewed.: No Medication/Allergy Home Medications: Albuterol Sulfate [Proair HFA] 2 puff IN Q6HP PRN 02/01/17 Aspirin [Aspirin EC] 81 mg PO DAILY 02/01/17 Budesonide/Formoterol Fumarate [Symbicort 160-4.5 Mcg Inhaler] 2 puff IN BID Cetirizine HCl [Zyrtec 10 mg Tablet] 10 mg PO DAILY 02/01/17 Citalopram Hydrobromide [Celexa] 40 mg PO DAILY 02/01/17 Lisinopril [Zestril] 20 mg PO DAILY 02/01/17 Meloxicam [Mobic] 15 mg PO DAILY 02/01/17 Multivit-Min/Iron/Folic/Lutein [Centrum Silver Women Tablet] 1 tab PO DAILY Pantoprazole Sodium [Protonix] 40 mg PO DAILY 02/01/17 Lorazepam [Ativan 0.5 mg Tablet] 0.5 mg PO BIDP PRN #10 tablet 02/04/17 Gabapentin [Neurontin 300 mg Capsule] 300 mg PO Q12 08/05/17 Guaifenesin [Mucinex] 600 mg PO Q12 08/05/17 Oxycodone HCl 5 mg PO Q12HP PRN 08/05/17 Allergies/Adverse Reactions: No Known Allergies Allergy (Verified 08/05/17 00:08) Review of Systems Constitutional: PRESENT: other - no fever/chills Eyes: PRESENT: other - no visual/hearing changes Cardiovascular: PRESENT: other - no chest pains Respiratory: PRESENT: other - has emphysema and uses O2 at home Gastrointestinal: PRESENT: abdominal pain, nausea Genitourinary: PRESENT: other - no dysuria Musculoskeletal: PRESENT: other - hip pains Neurological: PRESENT: other - no seizures Endocrine: PRESENT: other - no polyuria Hematologic/Lymphatic: PRESENT: other - no easy bruising Physical Exam Vital Signs: Temp Pulse Resp BP Pulse Ox 98.3 F 116 H 19 155/75 H 100 08/10/17 20:15 08/10/17 20:15 08/10/17 20:15 08/10/17 20:15 08/10/17 20:15 Intake & Output 08/09/17 08/10/17 08/11/17 06:59 06:59 06:59 Intake Total 1200 1045 1000 Output Total 1300 500 500 Balance -100 545 500 Weight 67.5 kg 67.2 kg General appearance: PRESENT: no acute distress Head exam: PRESENT: atraumatic Mouth exam: PRESENT: moist Neck exam: PRESENT: full ROM Respiratory exam: PRESENT: rhonchi Cardiovascular exam: PRESENT: RRR Pulses: PRESENT: normal radial pulses Vascular exam: PRESENT: normal capillary refill GI/Abdominal exam: PRESENT: distended, hypoactive bowel sounds, soft, other - NGT in Place with 700 ccs drainage Rectal exam: PRESENT: deferred Extremities exam: PRESENT: full ROM Musculoskeletal exam: PRESENT: full ROM Neurological exam: PRESENT: alert, oriented to person, oriented to place, oriented to time, oriented to situation Psychiatric exam: PRESENT: appropriate affect Skin exam: PRESENT: normal color, warm Results Laboratory Results: 08/08/17 18:09 08/08/17 05:23 08/06/17 08/06/17 07:39 07:39 Troponin I < 0.012 NT-Pro-B Natriuret Pep 765 Impressions: Hip/Pelvis X-Ray 08/04/17 23:59 IMPRESSION: Fracture of the right femoral neck. Chest X-Ray 08/05/17 00:00 IMPRESSION: No acute cardiopulmonary findings. Pelvis X-Ray 08/05/17 11:48 IMPRESSION: Right hip replacement in good positioning Abdomen/Pelvis CT 08/09/17 00:00 IMPRESSION: Patchy consolidation in the left lower lobe. Diffusely dilated small bowel with multiple air-fluid levels, no distinct transition point is identified. Multiple colonic air-fluid levels are noted as well. No distinct bowel wall thickening is identified or free fluid. This appearance may represent developing obstruction or ileus. Assessment & Plan - Diagnosis (1) Emphysema lung Is this a current diagnosis for this admission?: Yes (2) Ileus Is this a current diagnosis for this admission?: Yes (3) Hyponatremia Is this a current diagnosis for this admission?: Yes - Time Time Spent: 30 to 50 Minutes - Plan Summary Plan Summary: [place] better with NGT placement Continue monitor lytes Expect to iprove without surgery No surgical indication at this time Will follow with you.
[2017-08-11] MEDS: IPRATROPIUM/ALBUTEROL 0.5-2.5 MG/3 ML AMPUL NEB SCH ×4 (02:24→19:57)
[2017-08-11] MEDS: METOCLOPRAMIDE HCL INJ/PF 10 MG/2 ML SDV IV SCH ×4 (02:26→21:52)
[2017-08-11 04:47] LABS: HEMATOCRIT 28.9 % (36.0-47.0); MEAN CORPUSCULAR HEMOGLOBIN 32.1 pg (27.0-33.4); MEAN CORPUSCULAR HGB CONC 34.5 g/dL (32.0-36.0); MEAN CORPUSCULAR VOLUME 93 fl (80-97); PLATELET COUNT 297 10^3/uL (150-450); RED BLOOD COUNT 3.11 10^6/uL (3.72-5.28); RED CELL DISTRIBUTION WIDTH 14.5 % (11.5-14.0)
[2017-08-11 05:11] LABS: ALANINE AMINOTRANSFERASE 71 U/L (9-52); ALBUMIN 3.2 g/dL (3.5-5.0); ALKALINE PHOSPHATASE 148 U/L (38-126); ANION GAP 7 (5-19); ASPARTATE AMINO TRANSFERASE 63 U/L (14-36); BILIRUBIN,DIRECT 0.6 mg/dL (0.0-0.4); BLOOD UREA NITROGEN 17 mg/dL (7-20); CALCIUM 8.8 mg/dL (8.4-10.2); CARBON DIOXIDE 27 mmol/L (22-30); CHLORIDE 106 mmol/L (98-107); GLUCOSE 120 mg/dL (75-110); POTASSIUM 4.3 mmol/L (3.6-5.0); SODIUM 140.4 mmol/L (137-145); TOTAL PROTEIN 5.3 g/dL (6.3-8.2)
[2017-08-11 05:27] LABS: ABSOLUTE LYMPHOCYTES# (MANUAL) 0.2 10^3/uL (0.5-4.7); ABSOLUTE MONOCYTES # (MANUAL) 0.3 10^3/uL (0.1-1.4); ABSOLUTE NEUTROPHILS# (MANUAL) 9.5 10^3/uL (1.7-8.2); ANISOCYTOSIS SLIGHT; BAND NEUTROPHILS % (MANUAL) 3 % (3-5); BASOPHILS % (MANUAL) 0 % (0-2); BURR CELLS SLIGHT; EOSINOPHILS % (MANUAL) 0 % (0-6); LYMPHOCYTES % (MANUAL) 2 % (13-45); MONOCYTES % (MANUAL) 3 % (3-13); OVALOCYTES SLIGHT; PLATELET COMMENT ADEQUATE; SEGMENTED NEUTROPHILS % (MAN) 92 % (42-78); TOTAL CELLS COUNTED 100; TOXIC GRANULATION SLIGHT
[2017-08-11] MEDS: PIPERACILLIN SODIUM/TAZOBACTAM 3.375 GM in NORMAL SALINE 100 ML IV SCH ×3 (07:05→21:52)
[2017-08-11] MEDS: METOPROLOL TARTRATE PF/INJ 5 MG/5 ML SDV IV SCH ×3 (07:08→21:53)
[2017-08-11] MEDS: ENALAPRILAT DIHYDRATE INJ/PF 1.25 MG/1 ML SDV IV SCH ×3 (07:08→21:53)
[2017-08-11] MEDS: LANSOPRAZOLE 30 MG TAB.RAP.DR NG SCH (07:09)
[2017-08-11] MEDS: HEPARIN SOD (PORCINE) 5,000 UNIT/ML 1 ML SYRINGE SUBCUT SCH ×3 (07:09→21:53)
--- NOTE | 2017-08-11 08:09 | PDOC PROGRESS REPORT ---
Subjective Progress Note for:: 08/11/17 Reason For Visit: RIGHT FEMORAL NECK FRACTURE 66-year-old status post right hip arthroplasty now with a postoperative ileus requiring NG tube placement Physical Exam Vital Signs: Temp Pulse Resp BP Pulse Ox 36.7 C 108 H 16 156/87 H 97 08/11/17 07:13 08/11/17 07:13 08/11/17 07:13 08/11/17 07:13 08/11/17 07:13 Intake & Output 08/10/17 08/11/17 08/12/17 06:59 06:59 06:59 Intake Total 1045 1000 Output Total 500 1100 Balance 545 -100 Weight 67.2 kg 67.3 kg General appearance: PRESENT: no acute distress Head exam: PRESENT: normocephalic Respiratory exam: PRESENT: unlabored Cardiovascular exam: PRESENT: RRR Pulses: PRESENT: +1 pedal pulses bilateral Vascular exam: PRESENT: normal capillary refill Extremities exam: PRESENT: other - Right hip wound with continued serous drainage. Dressing is changed. Psychiatric exam: PRESENT: appropriate affect, normal mood. ABSENT: homicidal ideation, suicidal ideation Skin exam: PRESENT: dry, intact, warm. ABSENT: cyanosis, rash Results Laboratory Results: 08/11/17 04:09 08/11/17 04:09 08/11/17 08/11/17 08/11/17 04:09 04:09 04:09 WBC 10.0 RBC 3.11 L Hgb 10.0 L Hct 28.9 L MCV 93 MCH 32.1 MCHC 34.5 RDW 14.5 H Plt Count 297 Seg Neutrophils % Not Reportable Lymphocytes % Not Reportable Monocytes % Not Reportable Eosinophils % Not Reportable Basophils % Not Reportable Absolute Neutrophils Not Reportable Absolute Lymphocytes Not Reportable Absolute Monocytes Not Reportable Absolute Eosinophils Not Reportable Absolute Basophils Not Reportable Sodium 140.4 Potassium 4.3 Chloride 106 Carbon Dioxide 27 Anion Gap 7 BUN 17 Creatinine 0.56 Est GFR ( Amer) > 60 Est GFR (Non-Af Amer) > 60 Glucose 120 H Calcium 8.8 Magnesium 2.3 Total Bilirubin 1.0 AST 63 H ALT 71 H Alkaline Phosphatase 148 H Total Protein 5.3 L Albumin 3.2 L 08/06/17 08/06/17 07:39 07:39 Troponin I < 0.012 NT-Pro-B Natriuret Pep 765 Impressions: Hip/Pelvis X-Ray 08/04/17 23:59 IMPRESSION: Fracture of the right femoral neck. Chest X-Ray 08/05/17 00:00 IMPRESSION: No acute cardiopulmonary findings. Pelvis X-Ray 08/05/17 11:48 IMPRESSION: Right hip replacement in good positioning Abdomen/Pelvis CT 08/09/17 00:00 IMPRESSION: Patchy consolidation in the left lower lobe. Diffusely dilated small bowel with multiple air-fluid levels, no distinct transition point is identified. Multiple colonic air-fluid levels are noted as well. No distinct bowel wall thickening is identified or free fluid. This appearance may represent developing obstruction or ileus. Status: Imported from PACS Assessment & Plan - Diagnosis (1) Fracture of femoral neck, right, closed Qualifiers: Encounter type: subsequent encounter Is this a current diagnosis for this admission?: Yes Plan: Patient to be mobilized with physical therapy as tolerated. Dressing changes to the right hip wound as needed (2) Acute blood loss anemia Is this a current diagnosis for this admission?: Yes Plan: Hematocrit stable at just under 29% (3) Ileus Is this a current diagnosis for this admission?: Yes Plan: Patient being managed with a nasogastric tube - Time Time Spent with patient: 15-24 minutes Anticipated discharge: SNF Within: Other
[2017-08-11] MEDS: ASCORBIC ACID 500 MG TABLET NG SCH (10:41)
[2017-08-11] MEDS: METOPROLOL SUCCINATE 25 MG TAB.SR.24H PO SCH (10:41)
[2017-08-11] MEDS: MAGNESIUM OXIDE 400 MG TABLET NG SCH (10:41)
[2017-08-11] MEDS: GABAPENTIN 300 MG CAPSULE NG SCH (10:41)
[2017-08-11] MEDS: CETIRIZINE 10 MG TABLET NG SCH (10:41)
[2017-08-11] MEDS: CITALOPRAM HYDROBROMIDE 20 MG TABLET NG SCH (10:41)
[2017-08-11] MEDS: GUAIFENESIN SYRP 200 MG/10 ML UDC NG SCH (10:42)
[2017-08-11] MEDS: FERROUS SULFATE LIQUID 300 MG/5 ML UDC NG SCH (10:42)
[2017-08-11] MEDS: LACTULOSE SYRUP 20 GM/30 ML UDCUP NG SCH ×2 (10:43→17:07)
[2017-08-11] MEDS: PRENATAL VITAMIN W DHA CAPSULE PO SCH (10:43)
[2017-08-11] MEDS: POLYETHYLENE GLYCOL 3350 POWDER 17 GM/1 PACKET NG SCH ×2 (10:43→17:07)
[2017-08-11] MEDS ORDERED: LORAZEPAM INJ 2 MG/1 ML VIAL IV ONE (12:39)
[2017-08-11] MEDS ORDERED: DEXTROSE 5%-1/2 NORMAL SALINE 1,000 ML IV PRN (12:50)
--- NOTE | 2017-08-11 12:59 | PDOC PROGRESS REPORT ---
Subjective Progress Note for:: 08/11/17 Subjective:: Patient relates that has been able to pass gas but no stool. Also has not been able to rest at night. Review of system All organ systems evaluated and negative except as in subjective All significant laboratories and diagnostics have been reviewed Reason For Visit: RIGHT FEMORAL NECK FRACTURE Physical Exam Vital Signs: Temp Pulse Resp BP Pulse Ox 97.8 F 120 H 22 H 145/77 H 97 08/11/17 03:22 08/11/17 03:22 08/11/17 03:22 08/11/17 03:22 08/11/17 03:22 Intake & Output 08/09/17 08/10/17 08/11/17 06:59 06:59 06:59 Intake Total 1200 1045 1000 Output Total 4032 764 9444 Balance -100 545 -100 Weight 67.5 kg 67.2 kg 67.3 kg General appearance: PRESENT: no acute distress, cooperative, thin Head exam: PRESENT: atraumatic, normocephalic Eye exam: PRESENT: conjunctiva pink, EOMI, PERRLA Mouth exam: PRESENT: moist Neck exam: PRESENT: full ROM. ABSENT: JVD, lymphadenopathy, tenderness Respiratory exam: PRESENT: crackles - in lefet lower lobe Cardiovascular exam: PRESENT: RRR. ABSENT: diastolic murmur, systolic murmur Vascular exam: PRESENT: normal capillary refill GI/Abdominal exam: PRESENT: hypoactive bowel sounds, soft. ABSENT: tenderness Extremities exam: PRESENT: full ROM. ABSENT: pedal edema Musculoskeletal exam: PRESENT: ambulatory Neurological exam: PRESENT: alert, awake, oriented to person, oriented to place , oriented to time, oriented to situation, CN II-XII grossly intact Psychiatric exam: PRESENT: appropriate affect, normal mood Skin exam: PRESENT: intact, normal color Results Laboratory Results: 08/11/17 04:09 08/11/17 04:09 08/11/17 08/11/17 08/11/17 04:09 04:09 04:09 WBC 10.0 RBC 3.11 L Hgb 10.0 L Hct 28.9 L MCV 93 MCH 32.1 MCHC 34.5 RDW 14.5 H Plt Count 297 Seg Neutrophils % Not Reportable Lymphocytes % Not Reportable Monocytes % Not Reportable Eosinophils % Not Reportable Basophils % Not Reportable Absolute Neutrophils Not Reportable Absolute Lymphocytes Not Reportable Absolute Monocytes Not Reportable Absolute Eosinophils Not Reportable Absolute Basophils Not Reportable Sodium 140.4 Potassium 4.3 Chloride 106 Carbon Dioxide 27 Anion Gap 7 BUN 17 Creatinine 0.56 Est GFR ( Amer) > 60 Est GFR (Non-Af Amer) > 60 Glucose 120 H Calcium 8.8 Magnesium 2.3 Total Bilirubin 1.0 AST 63 H ALT 71 H Alkaline Phosphatase 148 H Total Protein 5.3 L Albumin 3.2 L 08/06/17 08/06/17 07:39 07:39 Troponin I < 0.012 NT-Pro-B Natriuret Pep 765 Impressions: Hip/Pelvis X-Ray 08/04/17 23:59 IMPRESSION: Fracture of the right femoral neck. Chest X-Ray 08/05/17 00:00 IMPRESSION: No acute cardiopulmonary findings. Pelvis X-Ray 08/05/17 11:48 IMPRESSION: Right hip replacement in good positioning Abdomen/Pelvis CT 08/09/17 00:00 IMPRESSION: Patchy consolidation in the left lower lobe. Diffusely dilated small bowel with multiple air-fluid levels, no distinct transition point is identified. Multiple colonic air-fluid levels are noted as well. No distinct bowel wall thickening is identified or free fluid. This appearance may represent developing obstruction or ileus. Assessment & Plan - Diagnosis (1) Fracture of femoral neck, right, closed Qualifiers: Encounter type: subsequent encounter Is this a current diagnosis for this admission?: Yes Plan: Surgery complicated by post operative ileus. (2) Acute blood loss anemia Is this a current diagnosis for this admission?: Yes Plan: Due to fracture. Improved after transfusion of 1 unit of packed red blood cell. Continue iron supplementation, vitamin C multivitamins when able to tolerate oral. Stable (3) COPD (chronic obstructive pulmonary disease) Qualifiers: COPD type: emphysema Emphysema type: unspecified Qualified Code(s): J43.9 - Emphysema, unspecified Is this a current diagnosis for this admission?: Yes Plan: Nebulizer treatments as needed. Add pulmicort Stable (4) Acute and chronic respiratory failure with hypoxia Is this a current diagnosis for this admission?: Yes Plan: Continue oxygen supplementation and will wean off as tolerated (5) Tobacco abuse Is this a current diagnosis for this admission?: Yes Plan: Will continue nicotine patch. Educated about quitting appears to be motivated (6) Hyponatremia Is this a current diagnosis for this admission?: Yes Plan: Patient on SSRI which may be contributing to hyponatremia. Patient states that is a long-standing problem on her. Improved (7) Hypotension Qualifiers: Hypotension type: unspecified hypotension type Qualified Code(s): I95.9 - Hypotension, unspecified Is this a current diagnosis for this admission?: Yes Plan: Resolved (8) V-tach Is this a current diagnosis for this admission?: Yes Plan: Resolved. Continue lopressor IV (9) PNA (pneumonia) Qualifiers: Laterality: left Lung location: lower lobe of lung Is this a current diagnosis for this admission?: Yes Plan: Continue Zosyn IV and incentive spirometry (10) Ileus, postoperative Is this a current diagnosis for this admission?: Yes Plan: Continue NG tube, n.p.o. except for lactulose and MiraLAX. Continue IV fluids and Reglan IV - Time Time Spent with patient: 15-24 minutes Medications reviewed and adjusted accordingly: Yes Anticipated discharge: Acute Rehab Within: Other - unable to determine at this time - Inpatient Certification Based on my medical assessment, after consideration of the patient's comorbidities, presenting symptoms, or acuity I expect that the services needed warrant INPATIENT care.: Yes I certify that my determination is in accordance with my understanding of Medicare's requirements for reasonable and necessary INPATIENT services [42 CFR 412.3e].: Yes Medical Necessity: Need Close Monitoring Due to Risk of Patient Decompensation, Need For IV Fluids, Need for IV Antibiotics
--- NOTE | 2017-08-11 14:44 | PDOC PROGRESS REPORT ---
Subjective Progress Note for:: 08/11/17 Subjective:: No Pains. Passed flatus. Reason For Visit: RIGHT FEMORAL NECK FRACTURE Physical Exam Vital Signs: Temp Pulse Resp BP Pulse Ox 97.5 F 106 H 16 154/76 H 98 08/11/17 11:46 08/11/17 11:46 08/11/17 11:46 08/11/17 11:46 08/11/17 11:46 Intake & Output 08/10/17 08/11/17 08/12/17 06:59 06:59 06:59 Intake Total 1045 2450 Output Total 500 1100 Balance 545 1350 Weight 67.2 kg 67.3 kg Exam: NGT 300ccs from last night. Abdomen less distended and non tender Results Laboratory Results: 08/11/17 04:09 08/11/17 04:09 08/11/17 08/11/17 08/11/17 04:09 04:09 04:09 WBC 10.0 RBC 3.11 L Hgb 10.0 L Hct 28.9 L MCV 93 MCH 32.1 MCHC 34.5 RDW 14.5 H Plt Count 297 Seg Neutrophils % Not Reportable Lymphocytes % Not Reportable Monocytes % Not Reportable Eosinophils % Not Reportable Basophils % Not Reportable Absolute Neutrophils Not Reportable Absolute Lymphocytes Not Reportable Absolute Monocytes Not Reportable Absolute Eosinophils Not Reportable Absolute Basophils Not Reportable Sodium 140.4 Potassium 4.3 Chloride 106 Carbon Dioxide 27 Anion Gap 7 BUN 17 Creatinine 0.56 Est GFR ( Amer) > 60 Est GFR (Non-Af Amer) > 60 Glucose 120 H Calcium 8.8 Magnesium 2.3 Total Bilirubin 1.0 AST 63 H ALT 71 H Alkaline Phosphatase 148 H Total Protein 5.3 L Albumin 3.2 L 08/06/17 08/06/17 07:39 07:39 Troponin I < 0.012 NT-Pro-B Natriuret Pep 765 Impressions: Hip/Pelvis X-Ray 08/04/17 23:59 IMPRESSION: Fracture of the right femoral neck. Chest X-Ray 08/05/17 00:00 IMPRESSION: No acute cardiopulmonary findings. Pelvis X-Ray 08/05/17 11:48 IMPRESSION: Right hip replacement in good positioning Abdomen/Pelvis CT 08/09/17 00:00 IMPRESSION: Patchy consolidation in the left lower lobe. Diffusely dilated small bowel with multiple air-fluid levels, no distinct transition point is identified. Multiple colonic air-fluid levels are noted as well. No distinct bowel wall thickening is identified or free fluid. This appearance may represent developing obstruction or ileus. Assessment & Plan - Diagnosis (1) Emphysema lung Is this a current diagnosis for this admission?: Yes (2) Ileus Is this a current diagnosis for this admission?: Yes (3) Hyponatremia Is this a current diagnosis for this admission?: Yes - Time Time Spent with patient: 15-24 minutes - Plan Summary Plan Summary: Clamp NGT for 3-4 hrs then put back to suctio and if drainage no more than 100 ccs then can be removed. Ileus appears to be improving with improvement in Na
[2017-08-11] MEDS: BUDESONIDE NEB 0.5 MG/2 ML AMPUL NEB SCH (19:57)
[2017-08-11] MEDS: LORAZEPAM INJ 2 MG/1 ML VIAL IV SCH (21:53)
[2017-08-12] MEDS: PIPERACILLIN SODIUM/TAZOBACTAM 3.375 GM in NORMAL SALINE 100 ML IV SCH ×4 (03:26→22:50)
[2017-08-12] MEDS: METOCLOPRAMIDE HCL INJ/PF 10 MG/2 ML SDV IV SCH ×4 (03:27→22:40)
[2017-08-12] MEDS ORDERED: LORAZEPAM INJ 2 MG/1 ML VIAL IV ONE (04:45)
[2017-08-12] MEDS: HEPARIN SOD (PORCINE) 5,000 UNIT/ML 1 ML SYRINGE SUBCUT SCH ×3 (05:58→22:40)
[2017-08-12] MEDS: ENALAPRILAT DIHYDRATE INJ/PF 1.25 MG/1 ML SDV IV SCH (05:58)
[2017-08-12] MEDS: METOPROLOL TARTRATE PF/INJ 5 MG/5 ML SDV IV SCH (06:01)
--- NOTE | 2017-08-12 06:47 | PDOC PROGRESS REPORT ---
Subjective Progress Note for:: 08/12/17 Reason For Visit: RIGHT FEMORAL NECK FRACTURE 66-year-old white female status post right hip arthroplasty for femoral neck fracture most recently with an ileus treated with nasogastric tube. Nasogastric tube has been removed. Patient is comfortable. Physical Exam Vital Signs: Temp Pulse Resp BP Pulse Ox 36.6 C 94 17 160/77 H 97 08/12/17 03:27 08/12/17 03:27 08/12/17 03:27 08/12/17 03:27 08/12/17 03:27 Intake & Output 08/10/17 08/11/17 08/12/17 06:59 06:59 06:59 Intake Total 1045 2450 100 Output Total 500 1100 2350 Balance 545 1350 -2250 Weight 67.2 kg 67.3 kg 66.5 kg General appearance: PRESENT: no acute distress Head exam: PRESENT: normocephalic Musculoskeletal exam: PRESENT: other - Right hip dressing with continued serous drainage. Dressing is changed today. Wound is well approximated radha. There is some surrounding ecchymosis but no erythema or induration. Neurological exam: PRESENT: alert, awake, oriented to person, oriented to place , oriented to time, oriented to situation. ABSENT: motor sensory deficit Psychiatric exam: PRESENT: appropriate affect, normal mood. ABSENT: homicidal ideation, suicidal ideation Skin exam: PRESENT: dry, intact, warm. ABSENT: cyanosis, rash Results Laboratory Results: 08/11/17 04:09 08/11/17 04:09 08/06/17 08/06/17 07:39 07:39 Troponin I < 0.012 NT-Pro-B Natriuret Pep 765 Impressions: Hip/Pelvis X-Ray 08/04/17 23:59 IMPRESSION: Fracture of the right femoral neck. Chest X-Ray 08/05/17 00:00 IMPRESSION: No acute cardiopulmonary findings. Pelvis X-Ray 08/05/17 11:48 IMPRESSION: Right hip replacement in good positioning Abdomen/Pelvis CT 08/09/17 00:00 IMPRESSION: Patchy consolidation in the left lower lobe. Diffusely dilated small bowel with multiple air-fluid levels, no distinct transition point is identified. Multiple colonic air-fluid levels are noted as well. No distinct bowel wall thickening is identified or free fluid. This appearance may represent developing obstruction or ileus. Status: Imported from PACS Assessment & Plan - Diagnosis (1) Fracture of femoral neck, right, closed Qualifiers: Encounter type: subsequent encounter Is this a current diagnosis for this admission?: Yes Plan: Patient to be mobilized with physical therapy. group home facility placement pending. (2) Acute blood loss anemia Is this a current diagnosis for this admission?: Yes (3) Ileus Is this a current diagnosis for this admission?: Yes Plan: Resolving. General surgery to decide on advancing diet? - Time Time Spent with patient: 15-24 minutes Anticipated discharge: SNF Within: when bed available
[2017-08-12] MEDS: IPRATROPIUM/ALBUTEROL 0.5-2.5 MG/3 ML AMPUL NEB SCH ×3 (08:41→19:53)
[2017-08-12] MEDS: BUDESONIDE NEB 0.5 MG/2 ML AMPUL NEB SCH ×2 (08:42→19:53)
[2017-08-12] MEDS: POLYETHYLENE GLYCOL 3350 POWDER 17 GM/1 PACKET NG SCH ×2 (09:59→18:34)
[2017-08-12] MEDS: LISINOPRIL 10 MG TABLET PO SCH (10:00)
[2017-08-12] MEDS: AMLODIPINE BESYLATE 5 MG TABLET PO SCH (10:00)
[2017-08-12] MEDS: CETIRIZINE 10 MG TABLET NG SCH (10:01)
[2017-08-12] MEDS: LACTULOSE SYRUP 20 GM/30 ML UDCUP NG SCH ×2 (10:01→18:37)
[2017-08-12] MEDS ORDERED: ENALAPRILAT DIHYDRATE INJ/PF 1.25 MG/1 ML SDV IV SCH (12:00)
[2017-08-12] MEDS: ASCORBIC ACID 500 MG TABLET NG SCH (18:35)
[2017-08-12] MEDS: ASPIRIN 81 MG TABLET, CHEWABLE NG SCH (18:35)
[2017-08-12] MEDS: FERROUS SULFATE LIQUID 300 MG/5 ML UDC NG SCH (18:37)
--- NOTE | 2017-08-12 18:43 | PDOC PROGRESS REPORT ---
Subjective Progress Note for:: 08/12/17 Subjective:: Patient relates that feels better after she had a bowel movement. Patient complains of being hungry. There is reports a large bowel movement Review of system All organ systems evaluated and negative except as in subjective All significant laboratories and diagnostics have been reviewed Reason For Visit: RIGHT FEMORAL NECK FRACTURE Physical Exam Vital Signs: Temp Pulse Resp BP Pulse Ox 97.3 F 102 H 20 169/79 H 98 08/12/17 07:17 08/12/17 07:17 08/12/17 07:17 08/12/17 07:17 08/12/17 07:17 Intake & Output 08/11/17 08/12/17 08/13/17 06:59 06:59 06:59 Intake Total 2450 100 Output Total 1100 2350 Balance 1350 -2250 Weight 67.3 kg 66.5 kg General appearance: PRESENT: cooperative, thin Head exam: PRESENT: atraumatic, normocephalic Eye exam: PRESENT: conjunctiva pink, EOMI, PERRLA Ear exam: PRESENT: normal external ear exam Neck exam: PRESENT: full ROM. ABSENT: JVD, lymphadenopathy, tenderness Respiratory exam: ABSENT: chest wall tenderness Cardiovascular exam: PRESENT: RRR. ABSENT: diastolic murmur, systolic murmur Vascular exam: PRESENT: normal capillary refill GI/Abdominal exam: PRESENT: normal bowel sounds, soft. ABSENT: tenderness Extremities exam: PRESENT: full ROM. ABSENT: pedal edema Musculoskeletal exam: PRESENT: ambulatory Neurological exam: PRESENT: alert, awake, oriented to person, oriented to place , oriented to time, oriented to situation, CN II-XII grossly intact Psychiatric exam: PRESENT: appropriate affect, normal mood Skin exam: PRESENT: intact, normal color Results Laboratory Results: 08/11/17 04:09 08/11/17 04:09 08/06/17 08/06/17 07:39 07:39 Troponin I < 0.012 NT-Pro-B Natriuret Pep 765 Impressions: Hip/Pelvis X-Ray 08/04/17 23:59 IMPRESSION: Fracture of the right femoral neck. Chest X-Ray 08/05/17 00:00 IMPRESSION: No acute cardiopulmonary findings. Pelvis X-Ray 08/05/17 11:48 IMPRESSION: Right hip replacement in good positioning Abdomen/Pelvis CT 08/09/17 00:00 IMPRESSION: Patchy consolidation in the left lower lobe. Diffusely dilated small bowel with multiple air-fluid levels, no distinct transition point is identified. Multiple colonic air-fluid levels are noted as well. No distinct bowel wall thickening is identified or free fluid. This appearance may represent developing obstruction or ileus. Assessment & Plan - Diagnosis (1) Fracture of femoral neck, right, closed Qualifiers: Encounter type: subsequent encounter Is this a current diagnosis for this admission?: Yes Plan: Surgery complicated by post operative ileus. (2) Acute blood loss anemia Is this a current diagnosis for this admission?: Yes Plan: Due to fracture. Improved after transfusion of 1 unit of packed red blood cell. Continue iron supplementation, vitamin C multivitamins. Stable (3) COPD (chronic obstructive pulmonary disease) Qualifiers: COPD type: emphysema Emphysema type: unspecified Qualified Code(s): J43.9 - Emphysema, unspecified Is this a current diagnosis for this admission?: Yes Plan: Nebulizer treatments as needed. Continue pulmicort. Stable (4) Acute and chronic respiratory failure with hypoxia Is this a current diagnosis for this admission?: Yes Plan: Continue oxygen supplementation and will wean off as tolerated (5) Tobacco abuse Is this a current diagnosis for this admission?: Yes Plan: Will continue nicotine patch. Educated about quitting appears to be motivated (6) Hyponatremia Is this a current diagnosis for this admission?: Yes Plan: Patient on SSRI which may be contributing to hyponatremia. Patient states that is a long-standing problem on her. Improved (7) Hypotension Qualifiers: Hypotension type: unspecified hypotension type Qualified Code(s): I95.9 - Hypotension, unspecified Is this a current diagnosis for this admission?: Yes Plan: Resolved (8) V-tach Is this a current diagnosis for this admission?: Yes Plan: Resolved. Continue lopressor IV (9) PNA (pneumonia) Qualifiers: Laterality: left Lung location: lower lobe of lung Is this a current diagnosis for this admission?: Yes Plan: Continue Zosyn IV and incentive spirometry (10) Ileus, postoperative Is this a current diagnosis for this admission?: Yes Plan: Resolved and to continue current bowel regimen. (11) HTN (hypertension) Qualifiers: Hypertension type: essential hypertension Qualified Code(s): I10 - Essential (primary) hypertension Is this a current diagnosis for this admission?: Yes Plan: To restart antihypertensive regimen orally - Time Time Spent with patient: 15-24 minutes Medications reviewed and adjusted accordingly: Yes Anticipated discharge: Acute Rehab Within: within 48 hours - Inpatient Certification Based on my medical assessment, after consideration of the patient's comorbidities, presenting symptoms, or acuity I expect that the services needed warrant INPATIENT care.: Yes I certify that my determination is in accordance with my understanding of Medicare's requirements for reasonable and necessary INPATIENT services [42 CFR 412.3e].: Yes Medical Necessity: Need Close Monitoring Due to Risk of Patient Decompensation, Need for IV Antibiotics
[2017-08-12] MEDS: GUAIFENESIN SYRP 200 MG/10 ML UDC NG SCH (22:40)
[2017-08-12] MEDS: LORAZEPAM INJ 2 MG/1 ML VIAL IV SCH (22:40)
[2017-08-13] MEDS: GABAPENTIN 300 MG CAPSULE NG SCH ×2 (00:14→09:44)
[2017-08-13] MEDS: METOCLOPRAMIDE HCL INJ/PF 10 MG/2 ML SDV IV SCH ×4 (03:42→22:03)
[2017-08-13] MEDS: PIPERACILLIN SODIUM/TAZOBACTAM 3.375 GM in NORMAL SALINE 100 ML IV SCH ×2 (03:42→08:43)
[2017-08-13 06:00] LABS: ABSOLUTE EOSINOPHILS # (AUTO) 0.7 10^3/uL (0.0-0.6); ABSOLUTE LYMPHOCYTES (AUTO) 0.7 10^3/uL (0.5-4.7); ABSOLUTE MONOCYTES (AUTO) 0.8 10^3/uL (0.1-1.4); ABSOLUTE NEUT (AUTO) 5.8 10^3/uL (1.7-8.2); BASOPHILS % (AUTO) 0.3 % (0-2); HEMOGLOBIN 9.8 g/dL (12.0-15.5); MEAN CORPUSCULAR HEMOGLOBIN 31.8 pg (27.0-33.4); MEAN CORPUSCULAR HGB CONC 33.7 g/dL (32.0-36.0); MEAN CORPUSCULAR VOLUME 94 fl (80-97); MONOCYTES % (AUTO) 10.4 % (3-13); PLATELET COUNT 356 10^3/uL (150-450); RED BLOOD COUNT 3.08 10^6/uL (3.72-5.28); RED CELL DISTRIBUTION WIDTH 14.8 % (11.5-14.0); SEGMENTED NEUTROPHILS % (AUTO) 71.3 % (42-78); TOTAL CELLS COUNTED % (AUTO) 100 %; WHITE BLOOD COUNT 8.1 10^3/uL (4.0-10.5)
[2017-08-13] MEDS: HEPARIN SOD (PORCINE) 5,000 UNIT/ML 1 ML SYRINGE SUBCUT SCH ×3 (06:07→22:04)
[2017-08-13] MEDS: LANSOPRAZOLE 30 MG TAB.RAP.DR NG SCH (06:07)
[2017-08-13 06:20] LABS: BLOOD UREA NITROGEN 7 mg/dL (7-20); CALCIUM 8.5 mg/dL (8.4-10.2); GLUCOSE 102 mg/dL (75-110); POTASSIUM 4.1 mmol/L (3.6-5.0)
[2017-08-13 06:26] LABS: CHLORIDE 102 mmol/L (98-107); SODIUM 144.5 mmol/L (137-145)
[2017-08-13 06:33] LABS: ANION GAP 5 (5-19); CARBON DIOXIDE 38 mmol/L (22-30)
--- NOTE | 2017-08-13 07:16 | PDOC PROGRESS REPORT ---
Subjective Progress Note for:: 08/13/17 Reason For Visit: RIGHT FEMORAL NECK FRACTURE 66-year-old white female status post right hip arthroplasty for femoral neck fracture with a postoperative ileus which is resolved. Physical Exam Vital Signs: Temp Pulse Resp BP Pulse Ox 36.7 C 86 20 128/70 H 99 08/13/17 04:27 08/13/17 04:27 08/13/17 04:27 08/13/17 04:27 08/13/17 04:27 Intake & Output 08/12/17 08/13/17 08/14/17 06:59 06:59 06:59 Intake Total 100 1145 Output Total 2350 900 Balance -2250 245 Weight 66.5 kg 60 kg General appearance: PRESENT: no acute distress Head exam: PRESENT: normocephalic Respiratory exam: PRESENT: unlabored Cardiovascular exam: PRESENT: RRR Pulses: PRESENT: +1 pedal pulses bilateral Vascular exam: PRESENT: normal capillary refill GI/Abdominal exam: PRESENT: soft Rectal exam: PRESENT: deferred Extremities exam: PRESENT: other - Right hip dressing is clean dry and intact this morning it has been changed by nursing. Leg lengths are equal. Distal neurovascular examination is intact. Results Laboratory Results: 08/13/17 05:19 08/13/17 05:19 08/13/17 08/13/17 05:19 05:19 WBC 8.1 RBC 3.08 L Hgb 9.8 L Hct 29.0 L MCV 94 MCH 31.8 MCHC 33.7 RDW 14.8 H Plt Count 356 Seg Neutrophils % 71.3 Lymphocytes % 9.0 L Monocytes % 10.4 Eosinophils % 9.0 H Basophils % 0.3 Absolute Neutrophils 5.8 Absolute Lymphocytes 0.7 Absolute Monocytes 0.8 Absolute Eosinophils 0.7 H Absolute Basophils 0.0 Sodium 144.5 Potassium 4.1 Chloride 102 Carbon Dioxide 38 H Anion Gap 5 BUN 7 Creatinine 0.54 Est GFR ( Amer) > 60 Est GFR (Non-Af Amer) > 60 Glucose 102 Calcium 8.5 Magnesium 2.1 08/06/17 08/06/17 07:39 07:39 Troponin I < 0.012 NT-Pro-B Natriuret Pep 765 Impressions: Hip/Pelvis X-Ray 08/04/17 23:59 IMPRESSION: Fracture of the right femoral neck. Chest X-Ray 08/05/17 00:00 IMPRESSION: No acute cardiopulmonary findings. Pelvis X-Ray 08/05/17 11:48 IMPRESSION: Right hip replacement in good positioning Abdomen/Pelvis CT 08/09/17 00:00 IMPRESSION: Patchy consolidation in the left lower lobe. Diffusely dilated small bowel with multiple air-fluid levels, no distinct transition point is identified. Multiple colonic air-fluid levels are noted as well. No distinct bowel wall thickening is identified or free fluid. This appearance may represent developing obstruction or ileus. Status: Imported from PACS Assessment & Plan - Diagnosis (1) Fracture of femoral neck, right, closed Qualifiers: Encounter type: subsequent encounter Is this a current diagnosis for this admission?: Yes Plan: Patient being mobilized with physical therapy and weightbearing as tolerated basis. Dressing changes as needed. (2) Acute blood loss anemia Is this a current diagnosis for this admission?: Yes Plan: Stable (3) Ileus Is this a current diagnosis for this admission?: Yes Plan: Resolved - Time Time Spent with patient: 15-24 minutes Anticipated discharge: SNF Within: when bed available
[2017-08-13] MEDS: FERROUS SULFATE LIQUID 300 MG/5 ML UDC NG SCH ×2 (08:43→17:30)
[2017-08-13] MEDS: IPRATROPIUM/ALBUTEROL 0.5-2.5 MG/3 ML AMPUL NEB SCH ×2 (09:13→14:34)
[2017-08-13] MEDS: BUDESONIDE NEB 0.5 MG/2 ML AMPUL NEB SCH ×2 (09:13→20:00)
[2017-08-13] MEDS: POLYETHYLENE GLYCOL 3350 POWDER 17 GM/1 PACKET NG SCH ×2 (09:24→17:19)
[2017-08-13] MEDS: LACTULOSE SYRUP 20 GM/30 ML UDCUP NG SCH ×2 (09:24→17:19)
[2017-08-13] MEDS: GUAIFENESIN SYRP 200 MG/10 ML UDC NG SCH (09:24)
[2017-08-13] MEDS: ASCORBIC ACID 500 MG TABLET NG SCH ×2 (09:44→17:28)
[2017-08-13] MEDS: AMLODIPINE BESYLATE 5 MG TABLET PO SCH (09:44)
[2017-08-13] MEDS: PRENATAL VITAMIN W DHA CAPSULE PO SCH (09:44)
[2017-08-13] MEDS: CITALOPRAM HYDROBROMIDE 20 MG TABLET NG SCH (09:44)
[2017-08-13] MEDS: CETIRIZINE 10 MG TABLET NG SCH (09:44)
[2017-08-13] MEDS: LISINOPRIL 10 MG TABLET PO SCH (09:44)
[2017-08-13] MEDS ORDERED: LORAZEPAM 0.5 MG TABLET PO PRN (11:32)
[2017-08-13] MEDS ORDERED: FUROSEMIDE INJ/PF 20 MG/2 ML SDV IV ONE (15:19)
--- NOTE | 2017-08-13 16:21 | PDOC PROGRESS REPORT ---
Subjective Progress Note for:: 08/13/17 Subjective:: Patient reports feeling better. Has been having good bowel movements. Her breathing is so-so. Nurse reports that patient needs something for her nerves primarily at bedtime Review of system All organ systems evaluated and negative except as in subjective All significant laboratories and diagnostics have been reviewed Reason For Visit: RIGHT FEMORAL NECK FRACTURE Physical Exam Vital Signs: Temp Pulse Resp BP Pulse Ox 98.0 F 86 20 128/70 H 99 08/13/17 04:27 08/13/17 04:27 08/13/17 04:27 08/13/17 04:27 08/13/17 04:27 Intake & Output 08/11/17 08/12/17 08/13/17 06:59 06:59 06:59 Intake Total 2450 100 665 Output Total 1100 2350 900 Balance 1350 -2250 -235 Weight 67.3 kg 66.5 kg 60 kg General appearance: PRESENT: no acute distress, cooperative, thin Head exam: PRESENT: atraumatic, normocephalic Eye exam: PRESENT: conjunctiva pink, EOMI, PERRLA Ear exam: PRESENT: normal external ear exam Mouth exam: PRESENT: moist Neck exam: PRESENT: full ROM. ABSENT: JVD, lymphadenopathy, tenderness Respiratory exam: PRESENT: clear to auscultation lainey Cardiovascular exam: PRESENT: RRR. ABSENT: diastolic murmur, systolic murmur Vascular exam: PRESENT: normal capillary refill GI/Abdominal exam: PRESENT: normal bowel sounds, soft. ABSENT: tenderness Extremities exam: PRESENT: full ROM. ABSENT: pedal edema Musculoskeletal exam: PRESENT: ambulatory Neurological exam: PRESENT: alert, awake, oriented to person, oriented to place , oriented to time, oriented to situation, CN II-XII grossly intact Psychiatric exam: PRESENT: appropriate affect, normal mood Skin exam: PRESENT: intact, normal color Results Laboratory Results: 08/11/17 04:09 08/11/17 04:09 08/06/17 08/06/17 07:39 07:39 Troponin I < 0.012 NT-Pro-B Natriuret Pep 765 Impressions: Hip/Pelvis X-Ray 08/04/17 23:59 IMPRESSION: Fracture of the right femoral neck. Chest X-Ray 08/05/17 00:00 IMPRESSION: No acute cardiopulmonary findings. Pelvis X-Ray 08/05/17 11:48 IMPRESSION: Right hip replacement in good positioning Abdomen/Pelvis CT 08/09/17 00:00 IMPRESSION: Patchy consolidation in the left lower lobe. Diffusely dilated small bowel with multiple air-fluid levels, no distinct transition point is identified. Multiple colonic air-fluid levels are noted as well. No distinct bowel wall thickening is identified or free fluid. This appearance may represent developing obstruction or ileus. Assessment & Plan - Diagnosis (1) Fracture of femoral neck, right, closed Qualifiers: Encounter type: subsequent encounter Is this a current diagnosis for this admission?: Yes Plan: Surgery complicated by post operative ileus and pneumonia. Ileus resolved (2) Acute blood loss anemia Is this a current diagnosis for this admission?: Yes Plan: Due to fracture. Improved after transfusion of 1 unit of packed red blood cell. Continue iron supplementation, vitamin C multivitamins. Stable (3) COPD (chronic obstructive pulmonary disease) Qualifiers: COPD type: emphysema Emphysema type: unspecified Qualified Code(s): J43.9 - Emphysema, unspecified Is this a current diagnosis for this admission?: Yes Plan: Add Advair and Spiriva (4) Acute and chronic respiratory failure with hypoxia Is this a current diagnosis for this admission?: Yes Plan: Continue oxygen supplementation and will wean off as tolerated (5) Tobacco abuse Is this a current diagnosis for this admission?: Yes Plan: Will continue nicotine patch. Educated about quitting appears to be motivated (6) Hyponatremia Is this a current diagnosis for this admission?: Yes Plan: Patient on SSRI which may be contributing to hyponatremia. Patient states that is a long-standing problem on her. Resolved (7) Hypotension Qualifiers: Hypotension type: unspecified hypotension type Qualified Code(s): I95.9 - Hypotension, unspecified Is this a current diagnosis for this admission?: Yes Plan: Resolved (8) V-tach Is this a current diagnosis for this admission?: Yes Plan: Resolved. To place back on Toprol-XL (9) PNA (pneumonia) Qualifiers: Laterality: left Lung location: lower lobe of lung Is this a current diagnosis for this admission?: Yes Plan: To transition to Levaquin and Augmentin. Continue incentive spirometry (10) Ileus, postoperative Is this a current diagnosis for this admission?: Yes Plan: Resolved and to continue current bowel regimen. (11) HTN (hypertension) Qualifiers: Hypertension type: essential hypertension Qualified Code(s): I10 - Essential (primary) hypertension Is this a current diagnosis for this admission?: Yes Plan: Continue current regimen - Time Time Spent with patient: 15-24 minutes Medications reviewed and adjusted accordingly: Yes Anticipated discharge: Acute Rehab Within: within 24 hours - Inpatient Certification Based on my medical assessment, after consideration of the patient's comorbidities, presenting symptoms, or acuity I expect that the services needed warrant INPATIENT care.: Yes I certify that my determination is in accordance with my understanding of Medicare's requirements for reasonable and necessary INPATIENT services [42 CFR 412.3e].: Yes Medical Necessity: Significant Comorbidiites Make Outpatient Treatment Too Risky
[2017-08-13] MEDS ORDERED: METOPROLOL SUCCINATE 25 MG TAB.SR.24H PO ONE (16:30)
[2017-08-13] MEDS: ASPIRIN 81 MG TABLET, CHEWABLE NG SCH (17:28)
[2017-08-13] MEDS ORDERED: TIOTROPIUM BROMIDE DPI 5 CAP/KIT (18 MCG/CAP) IH ONE (18:00)
[2017-08-13] MEDS ORDERED: AMOXICILLIN TR/POT CLAVULANATE 500-125 MG TAB PO ONE (18:00)
[2017-08-13] MEDS: OXYCODONE HCL IR 5 MG TABLET PO PRN (19:20)
[2017-08-13] MEDS ORDERED: ONDANSETRON 4 MG TAB.RAPDIS PO PRN (20:00)
[2017-08-13] MEDS: IPRATROPIUM/ALBUTEROL 0.5-2.5 MG/3 ML AMPUL NEB PRN (20:00)
[2017-08-13] MEDS ORDERED: ACETAMINOPHEN 325 MG TABLET PO PRN (20:00)
[2017-08-13] MEDS: FLUTICASONE/SALMETEROL DISKUS 500-50 MCG/DOSE IH SCH (22:03)
[2017-08-13] MEDS: GUAIFENESIN 600 MG TABLET.SA PO SCH (22:03)
[2017-08-13] MEDS: GABAPENTIN 300 MG CAPSULE PO SCH (22:04)
[2017-08-13] MEDS: LORAZEPAM INJ 2 MG/1 ML VIAL IV SCH (22:04)
[2017-08-14] MEDS: METOCLOPRAMIDE HCL INJ/PF 10 MG/2 ML SDV IV SCH ×2 (03:34→09:34)
[2017-08-14] MEDS: LANSOPRAZOLE 30 MG TAB.RAP.DR PO SCH (06:04)
[2017-08-14] MEDS: AMOXICILLIN TR/POT CLAVULANATE 500-125 MG TAB PO SCH ×3 (06:04→23:02)
[2017-08-14] MEDS: OXYCODONE HCL IR 5 MG TABLET PO PRN ×3 (06:06→19:47)
[2017-08-14] MEDS: HEPARIN SOD (PORCINE) 5,000 UNIT/ML 1 ML SYRINGE SUBCUT SCH (06:07)
--- NOTE | 2017-08-14 06:51 | PDOC PROGRESS REPORT ---
Subjective Progress Note for:: 08/14/17 Reason For Visit: RIGHT FEMORAL NECK FRACTURE 66-year-old white female status post right hip arthroplasty for femoral neck fracture. Postoperative clinical course was notable for the development and spontaneous resolution of an ileus. Physical Exam Vital Signs: Temp Pulse Resp BP Pulse Ox 36.9 C 82 18 114/70 98 08/14/17 04:53 08/14/17 04:53 08/14/17 04:53 08/14/17 04:53 08/14/17 04:53 Intake & Output 08/12/17 08/13/17 08/14/17 06:59 06:59 06:59 Intake Total 100 1145 1212 Output Total 2350 900 1000 Balance -2250 245 212 Weight 66.5 kg 60 kg 60 kg General appearance: PRESENT: no acute distress Head exam: PRESENT: normocephalic Respiratory exam: PRESENT: unlabored Cardiovascular exam: PRESENT: RRR Pulses: PRESENT: +1 pedal pulses bilateral Vascular exam: PRESENT: normal capillary refill GI/Abdominal exam: PRESENT: soft Rectal exam: PRESENT: deferred Extremities exam: PRESENT: other - Right hip dressing clean dry and intact. Leg lengths are equal. Distal neurovascular examination is intact. Results Laboratory Results: 08/13/17 05:19 08/13/17 05:19 08/06/17 08/06/17 07:39 07:39 Troponin I < 0.012 NT-Pro-B Natriuret Pep 765 Impressions: Hip/Pelvis X-Ray 08/04/17 23:59 IMPRESSION: Fracture of the right femoral neck. Chest X-Ray 08/05/17 00:00 IMPRESSION: No acute cardiopulmonary findings. Pelvis X-Ray 08/05/17 11:48 IMPRESSION: Right hip replacement in good positioning Abdomen/Pelvis CT 08/09/17 00:00 IMPRESSION: Patchy consolidation in the left lower lobe. Diffusely dilated small bowel with multiple air-fluid levels, no distinct transition point is identified. Multiple colonic air-fluid levels are noted as well. No distinct bowel wall thickening is identified or free fluid. This appearance may represent developing obstruction or ileus. Status: Imported from PACS Assessment & Plan - Diagnosis (1) Fracture of femoral neck, right, closed Qualifiers: Encounter type: subsequent encounter Is this a current diagnosis for this admission?: Yes Plan: Patient status post right hip arthroplasty now ambulating 20 feet with physical therapy. GI issues have resolved. Patient is waiting medical clearance prior to use social work being able to facilitate a fpc facility placement. (2) Acute blood loss anemia Is this a current diagnosis for this admission?: Yes Plan: Stable (3) Ileus Is this a current diagnosis for this admission?: Yes Plan: Resolved - Time Time Spent with patient: 15-24 minutes Anticipated discharge: SNF Within: Other - When cleared medically
[2017-08-14 06:57] LABS: ABSOLUTE EOSINOPHILS # (AUTO) 0.6 10^3/uL (0.0-0.6); ABSOLUTE LYMPHOCYTES (AUTO) 0.6 10^3/uL (0.5-4.7); ABSOLUTE MONOCYTES (AUTO) 0.7 10^3/uL (0.1-1.4); ABSOLUTE NEUT (AUTO) 5.4 10^3/uL (1.7-8.2); BASOPHILS % (AUTO) 0.6 % (0-2); EOSINOPHILS % (AUTO) 7.9 % (0-6); HEMATOCRIT 27.7 % (36.0-47.0); HEMOGLOBIN 9.4 g/dL (12.0-15.5); LYMPHOCYTES % (AUTO) 8.5 % (13-45); MEAN CORPUSCULAR HEMOGLOBIN 31.4 pg (27.0-33.4); MEAN CORPUSCULAR VOLUME 92 fl (80-97); PLATELET COUNT 379 10^3/uL (150-450); RED CELL DISTRIBUTION WIDTH 14.7 % (11.5-14.0); TOTAL CELLS COUNTED % (AUTO) 100 %; WHITE BLOOD COUNT 7.3 10^3/uL (4.0-10.5)
[2017-08-14 07:16] LABS: BLOOD UREA NITROGEN 6 mg/dL (7-20); CALCIUM 7.8 mg/dL (8.4-10.2); CARBON DIOXIDE 36 mmol/L (22-30); CHLORIDE 96 mmol/L (98-107); GLUCOSE 90 mg/dL (75-110); POTASSIUM 3.3 mmol/L (3.6-5.0); SODIUM 135.8 mmol/L (137-145)
[2017-08-14 07:41] LABS: ANION GAP 5 (5-19)
[2017-08-14] MEDS: IPRATROPIUM/ALBUTEROL 0.5-2.5 MG/3 ML AMPUL NEB PRN ×2 (08:33→20:37)
[2017-08-14] MEDS: BUDESONIDE NEB 0.5 MG/2 ML AMPUL NEB SCH ×2 (08:33→20:37)
[2017-08-14] MEDS ORDERED: FERROUS SULFATE LIQUID 300 MG/5 ML UDC PO SCH (09:00)
[2017-08-14] MEDS: LACTULOSE SYRUP 20 GM/30 ML UDCUP PO SCH ×2 (09:08→17:29)
[2017-08-14] MEDS: POLYETHYLENE GLYCOL 3350 POWDER 17 GM/1 PACKET PO SCH ×2 (09:08→17:29)
[2017-08-14] MEDS: AMLODIPINE BESYLATE 5 MG TABLET PO SCH (09:11)
[2017-08-14] MEDS: LISINOPRIL 10 MG TABLET PO SCH (09:11)
[2017-08-14] MEDS ORDERED: POTASSIUM CHLORIDE 10 MEQ TABLET.SA PO ONE ×2 (09:30→16:30)
[2017-08-14] MEDS: GABAPENTIN 300 MG CAPSULE PO SCH ×2 (09:33→23:02)
[2017-08-14] MEDS: CETIRIZINE 10 MG TABLET PO SCH (09:34)
[2017-08-14] MEDS: PRENATAL VITAMIN W DHA CAPSULE PO SCH (09:34)
[2017-08-14] MEDS: GUAIFENESIN 600 MG TABLET.SA PO SCH ×2 (09:34→23:01)
[2017-08-14] MEDS: CITALOPRAM HYDROBROMIDE 20 MG TABLET PO SCH (09:34)
[2017-08-14] MEDS: ASCORBIC ACID 500 MG TABLET PO SCH ×2 (09:34→17:36)
[2017-08-14] MEDS: FERROUS SULFATE 325 MG TABLET PO SCH ×2 (09:34→17:37)
[2017-08-14] MEDS: LEVOFLOXACIN 500 MG TABLET PO SCH (09:34)
[2017-08-14] MEDS: METOPROLOL SUCCINATE 25 MG TAB.SR.24H PO SCH (09:34)
[2017-08-14] MEDS: TIOTROPIUM BROMIDE DPI 5 CAP/KIT (18 MCG/CAP) IH SCH (09:35)
[2017-08-14] MEDS: FLUTICASONE/SALMETEROL DISKUS 500-50 MCG/DOSE IH SCH ×2 (09:35→23:03)
[2017-08-14] MEDS ORDERED: AMLODIPINE BESYLATE 5 MG TABLET PO SCH (15:57)
--- NOTE | 2017-08-14 16:19 | PDOC PROGRESS REPORT ---
Subjective Progress Note for:: 08/14/17 Subjective:: Patient refers that is better but does not feel completely well for discharge. She thinks that may need 1 more day. Review of system All organ systems evaluated and negative except as in subjective All significant laboratories and diagnostics have been reviewed Reason For Visit: RIGHT FEMORAL NECK FRACTURE Physical Exam Vital Signs: Temp Pulse Resp BP Pulse Ox 98.6 F 82 18 108/58 L 97 08/14/17 07:58 08/14/17 08:33 08/14/17 08:33 08/14/17 07:58 08/14/17 08:33 Intake & Output 08/13/17 08/14/17 08/15/17 06:59 06:59 06:59 Intake Total 1145 1212 Output Total 900 1000 Balance 245 212 Weight 60 kg 60 kg General appearance: PRESENT: cooperative, thin Head exam: PRESENT: atraumatic, normocephalic Eye exam: PRESENT: conjunctiva pink, EOMI, PERRLA Mouth exam: PRESENT: moist Neck exam: PRESENT: full ROM. ABSENT: JVD, lymphadenopathy, tenderness Respiratory exam: PRESENT: crackles - Soft left-sided crackles Cardiovascular exam: PRESENT: RRR. ABSENT: diastolic murmur, systolic murmur Vascular exam: PRESENT: normal capillary refill GI/Abdominal exam: PRESENT: normal bowel sounds, soft. ABSENT: tenderness Extremities exam: PRESENT: full ROM Musculoskeletal exam: PRESENT: ambulatory Neurological exam: PRESENT: alert, awake, oriented to person, oriented to place , oriented to time, oriented to situation, CN II-XII grossly intact Psychiatric exam: PRESENT: appropriate affect, normal mood Skin exam: PRESENT: intact, normal color Results Laboratory Results: 08/14/17 05:59 08/14/17 05:59 08/14/17 08/14/17 05:59 05:59 WBC 7.3 RBC 3.00 L Hgb 9.4 L Hct 27.7 L MCV 92 MCH 31.4 MCHC 34.0 RDW 14.7 H Plt Count 379 Seg Neutrophils % 74.0 Lymphocytes % 8.5 L Monocytes % 9.0 Eosinophils % 7.9 H Basophils % 0.6 Absolute Neutrophils 5.4 Absolute Lymphocytes 0.6 Absolute Monocytes 0.7 Absolute Eosinophils 0.6 Absolute Basophils 0.0 Sodium 135.8 L Potassium 3.3 L Chloride 96 L Carbon Dioxide 36 H Anion Gap 5 BUN 6 L Creatinine 0.43 L Est GFR ( Amer) > 60 Est GFR (Non-Af Amer) > 60 Glucose 90 Calcium 7.8 L 08/06/17 08/06/17 07:39 07:39 Troponin I < 0.012 NT-Pro-B Natriuret Pep 765 Impressions: Hip/Pelvis X-Ray 08/04/17 23:59 IMPRESSION: Fracture of the right femoral neck. Chest X-Ray 08/05/17 00:00 IMPRESSION: No acute cardiopulmonary findings. Pelvis X-Ray 08/05/17 11:48 IMPRESSION: Right hip replacement in good positioning Abdomen/Pelvis CT 08/09/17 00:00 IMPRESSION: Patchy consolidation in the left lower lobe. Diffusely dilated small bowel with multiple air-fluid levels, no distinct transition point is identified. Multiple colonic air-fluid levels are noted as well. No distinct bowel wall thickening is identified or free fluid. This appearance may represent developing obstruction or ileus. Assessment & Plan - Diagnosis (1) Fracture of femoral neck, right, closed Qualifiers: Encounter type: subsequent encounter Is this a current diagnosis for this admission?: Yes Plan: Surgery complicated by post operative ileus and pneumonia. Ileus resolved (2) Acute blood loss anemia Is this a current diagnosis for this admission?: Yes Plan: Due to fracture. Improved after transfusion of 1 unit of packed red blood cell. Continue iron supplementation, vitamin C multivitamins. Stable (3) COPD (chronic obstructive pulmonary disease) Qualifiers: COPD type: emphysema Emphysema type: unspecified Qualified Code(s): J43.9 - Emphysema, unspecified Is this a current diagnosis for this admission?: Yes Plan: Continue Advair and Spiriva (4) Acute and chronic respiratory failure with hypoxia Is this a current diagnosis for this admission?: Yes Plan: Continue oxygen supplementation and will wean off as tolerated (5) Tobacco abuse Is this a current diagnosis for this admission?: Yes Plan: Will continue nicotine patch. Educated about quitting appears to be motivated (6) Hyponatremia Is this a current diagnosis for this admission?: Yes Plan: Patient on SSRI which may be contributing to hyponatremia. Patient states that is a long-standing problem on her. Resolved (7) Hypotension Qualifiers: Hypotension type: unspecified hypotension type Qualified Code(s): I95.9 - Hypotension, unspecified Is this a current diagnosis for this admission?: Yes Plan: Resolved (8) V-tach Is this a current diagnosis for this admission?: Yes Plan: Resolved. Continue Toprol-XL (9) PNA (pneumonia) Qualifiers: Laterality: left Lung location: lower lobe of lung Is this a current diagnosis for this admission?: Yes Plan: Continue Levaquin and Augmentin. Continue incentive spirometry (10) Ileus, postoperative Is this a current diagnosis for this admission?: Yes Plan: Resolved and to continue current bowel regimen. (11) HTN (hypertension) Qualifiers: Hypertension type: essential hypertension Qualified Code(s): I10 - Essential (primary) hypertension Is this a current diagnosis for this admission?: Yes Plan: Adjust current antihypertensive regimen - Time Time Spent with patient: 15-24 minutes Medications reviewed and adjusted accordingly: Yes Anticipated discharge: Acute Rehab Within: within 24 hours - Inpatient Certification Based on my medical assessment, after consideration of the patient's comorbidities, presenting symptoms, or acuity I expect that the services needed warrant INPATIENT care.: Yes I certify that my determination is in accordance with my understanding of Medicare's requirements for reasonable and necessary INPATIENT services [42 CFR 412.3e].: Yes Medical Necessity: Need Close Monitoring Due to Risk of Patient Decompensation
[2017-08-14] MEDS ORDERED: ASPIRIN 81 MG TABLET, CHEWABLE PO SCH (17:00)
[2017-08-14] MEDS ORDERED: RIVAROXABAN 10 MG TABLET PO SCH (17:00)
[2017-08-14] MEDS: LORAZEPAM INJ 2 MG/1 ML VIAL IV SCH (23:02)
[2017-08-14] MEDS: POTASSIUM CHLORIDE 10 MEQ TABLET.SA PO SCH (23:02)
[2017-08-15] MEDS: LANSOPRAZOLE 30 MG TAB.RAP.DR PO SCH (05:29)
[2017-08-15] MEDS: POTASSIUM CHLORIDE 10 MEQ TABLET.SA PO SCH (05:29)
[2017-08-15] MEDS: AMOXICILLIN TR/POT CLAVULANATE 500-125 MG TAB PO SCH ×2 (05:29→15:14)
[2017-08-15 05:35] LABS: ANION GAP 7 (5-19); BLOOD UREA NITROGEN 8 mg/dL (7-20); CALCIUM 8.4 mg/dL (8.4-10.2); CHLORIDE 101 mmol/L (98-107); GLUCOSE 92 mg/dL (75-110); SODIUM 134.4 mmol/L (137-145)
[2017-08-15 06:07] LABS: POTASSIUM 5.3 mmol/L (3.6-5.0)
[2017-08-15 06:08] LABS: CARBON DIOXIDE 26 mmol/L (22-30)
--- NOTE | 2017-08-15 06:15 | PDOC PROGRESS REPORT ---
Subjective Progress Note for:: 08/15/17 Reason For Visit: RIGHT FEMORAL NECK FRACTURE 66-year-old white female postop day 10 from right hip arthroplasty for femoral neck fracture. Postoperative course was complicated by ileus. Ileus has resolved. Physical Exam Vital Signs: Temp Pulse Resp BP Pulse Ox 37.2 C 87 18 135/81 H 94 08/15/17 03:26 08/15/17 03:26 08/15/17 03:26 08/15/17 03:26 08/15/17 03:26 Intake & Output 08/13/17 08/14/17 08/15/17 06:59 06:59 06:59 Intake Total 1145 1212 384 Output Total 900 1000 675 Balance 245 212 -291 Weight 60 kg 60 kg 59.9 kg General appearance: PRESENT: mild distress Head exam: PRESENT: normocephalic Respiratory exam: PRESENT: unlabored Cardiovascular exam: PRESENT: RRR Pulses: PRESENT: +1 pedal pulses bilateral Vascular exam: PRESENT: normal capillary refill GI/Abdominal exam: PRESENT: soft Rectal exam: PRESENT: deferred Extremities exam: PRESENT: other - Decreasing right hip wound serous drainage. Leg lengths are equal. Distal neurovascular examination is intact. Neurological exam: PRESENT: alert, awake, oriented to person, oriented to place , oriented to time, oriented to situation. ABSENT: motor sensory deficit Psychiatric exam: PRESENT: appropriate affect, normal mood. ABSENT: homicidal ideation, suicidal ideation Skin exam: PRESENT: dry, intact, warm. ABSENT: cyanosis, rash Results Laboratory Results: 08/14/17 05:59 08/15/17 04:46 08/14/17 08/14/17 08/15/17 05:59 05:59 04:46 WBC 7.3 RBC 3.00 L Hgb 9.4 L Hct 27.7 L MCV 92 MCH 31.4 MCHC 34.0 RDW 14.7 H Plt Count 379 Seg Neutrophils % 74.0 Lymphocytes % 8.5 L Monocytes % 9.0 Eosinophils % 7.9 H Basophils % 0.6 Absolute Neutrophils 5.4 Absolute Lymphocytes 0.6 Absolute Monocytes 0.7 Absolute Eosinophils 0.6 Absolute Basophils 0.0 Sodium 135.8 L 134.4 L Potassium 3.3 L 5.3 H D Chloride 96 L 101 Carbon Dioxide 36 H 26 D Anion Gap 5 7 BUN 6 L 8 Creatinine 0.43 L 0.43 L Est GFR ( Amer) > 60 > 60 Est GFR (Non-Af Amer) > 60 > 60 Glucose 90 92 Calcium 7.8 L 8.4 Magnesium 1.7 08/06/17 08/06/17 07:39 07:39 Troponin I < 0.012 NT-Pro-B Natriuret Pep 765 Impressions: Hip/Pelvis X-Ray 08/04/17 23:59 IMPRESSION: Fracture of the right femoral neck. Chest X-Ray 08/05/17 00:00 IMPRESSION: No acute cardiopulmonary findings. Pelvis X-Ray 08/05/17 11:48 IMPRESSION: Right hip replacement in good positioning Abdomen/Pelvis CT 08/09/17 00:00 IMPRESSION: Patchy consolidation in the left lower lobe. Diffusely dilated small bowel with multiple air-fluid levels, no distinct transition point is identified. Multiple colonic air-fluid levels are noted as well. No distinct bowel wall thickening is identified or free fluid. This appearance may represent developing obstruction or ileus. Status: Imported from PACS Assessment & Plan - Diagnosis (1) Fracture of femoral neck, right, closed Qualifiers: Encounter type: subsequent encounter Is this a current diagnosis for this admission?: Yes Plan: Dry dressing changes to right hip wound as needed. Patient can be mobilized with physical therapy weightbearing as tolerated. (2) Acute blood loss anemia Is this a current diagnosis for this admission?: Yes Plan: Stable (3) Ileus Is this a current diagnosis for this admission?: Yes Plan: Resolved - Time Time Spent with patient: 15-24 minutes Anticipated discharge: SNF Within: when bed available - Patient awaiting medical clearance prior to long-term facility placement
[2017-08-15] MEDS ORDERED: ONDANSETRON 4 MG TAB.RAPDIS PO PRN (08:00)
[2017-08-15] MEDS ORDERED: ONDANSETRON HCL INJ/PF 4 MG/2 ML SDV IV PRN (08:00)
[2017-08-15] MEDS ORDERED: SODIUM POLYSTYRENE SULFONATE 15 GM/60 ML PO ONE (08:00)
[2017-08-15] MEDS: IPRATROPIUM/ALBUTEROL 0.5-2.5 MG/3 ML AMPUL NEB PRN ×2 (08:24→14:15)
[2017-08-15] MEDS: BUDESONIDE NEB 0.5 MG/2 ML AMPUL NEB SCH (08:25)
[2017-08-15] MEDS: LACTULOSE SYRUP 20 GM/30 ML UDCUP PO SCH (09:23)
[2017-08-15] MEDS: POLYETHYLENE GLYCOL 3350 POWDER 17 GM/1 PACKET PO SCH (09:23)
[2017-08-15] MEDS: TIOTROPIUM BROMIDE DPI 5 CAP/KIT (18 MCG/CAP) IH SCH (09:34)
[2017-08-15] MEDS: CITALOPRAM HYDROBROMIDE 20 MG TABLET PO SCH (09:34)
[2017-08-15] MEDS: FERROUS SULFATE 325 MG TABLET PO SCH (09:34)
[2017-08-15] MEDS: METOPROLOL SUCCINATE 25 MG TAB.SR.24H PO SCH (09:35)
[2017-08-15] MEDS: LEVOFLOXACIN 500 MG TABLET PO SCH (09:35)
[2017-08-15] MEDS: PRENATAL VITAMIN W DHA CAPSULE PO SCH (09:35)
[2017-08-15] MEDS: GABAPENTIN 300 MG CAPSULE PO SCH (09:35)
[2017-08-15] MEDS: CETIRIZINE 10 MG TABLET PO SCH (09:35)
[2017-08-15] MEDS: ASCORBIC ACID 500 MG TABLET PO SCH (09:35)
[2017-08-15] MEDS: GUAIFENESIN 600 MG TABLET.SA PO SCH (09:35)
[2017-08-15] MEDS ORDERED: LISINOPRIL 10 MG TABLET PO SCH (10:00)
[2017-08-15] MEDS ORDERED: AMLODIPINE BESYLATE 2.5 MG TABLET PO SCH (10:00)
[2017-08-15] MEDS: FLUTICASONE/SALMETEROL DISKUS 500-50 MCG/DOSE IH SCH (10:25)
[2017-08-15] MEDS: OXYCODONE HCL IR 5 MG TABLET PO PRN (12:59)
--- NOTE | 2017-08-15 13:05 | PDOC TRANSFER SUMMARY ---
General - Admit/Disc Date/PCP Admission Date/Primary Care Provider: 08/05/17 02:36 JONATHAN MOORE NP Discharge Date: 08/15/17 - Discharge Diagnosis (1) Fracture of femoral neck, right, closed Is this a current diagnosis for this admission?: Yes (2) Acute blood loss anemia Is this a current diagnosis for this admission?: Yes (3) COPD (chronic obstructive pulmonary disease) Is this a current diagnosis for this admission?: Yes (4) Acute and chronic respiratory failure with hypoxia Is this a current diagnosis for this admission?: Yes (5) Tobacco abuse Is this a current diagnosis for this admission?: Yes (6) Hyponatremia Is this a current diagnosis for this admission?: Yes (7) Hypotension Is this a current diagnosis for this admission?: Yes (8) V-tach Is this a current diagnosis for this admission?: Yes (9) PNA (pneumonia) Is this a current diagnosis for this admission?: Yes (10) Ileus, postoperative Is this a current diagnosis for this admission?: Yes (11) HTN (hypertension) Is this a current diagnosis for this admission?: Yes - Additional Information Resuscitation Status: Full Code Discharge Diet: Regular Discharge Activity: Activity As Tolerated Prescriptions: Lorazepam [Ativan 0.5 mg Tablet] 0.5 mg PO BIDP PRN #10 tablet PRN Reason: FOR ANXIETY Oxycodone HCl 5 mg PO Q12HP PRN #10 tablet PRN Reason: For Pain Home Medications: Albuterol Sulfate [Proair HFA] 2 puff IN Q6HP PRN 02/01/17 Aspirin [Aspirin EC] 81 mg PO DAILY 02/01/17 Budesonide/Formoterol Fumarate [Symbicort 160-4.5 Mcg Inhaler] 2 puff IN BID Cetirizine HCl [Zyrtec 10 mg Tablet] 10 mg PO DAILY 02/01/17 Citalopram Hydrobromide [Celexa] 40 mg PO DAILY 02/01/17 Multivit-Min/Iron/Folic/Lutein [Centrum Silver Women Tablet] 1 tab PO DAILY Pantoprazole Sodium [Protonix] 40 mg PO DAILY 02/01/17 Gabapentin [Neurontin 300 mg Capsule] 300 mg PO Q12 08/05/17 Guaifenesin [Mucinex] 600 mg PO Q12 08/05/17 Acetaminophen [Tylenol 325 mg Tablet] 650 mg PO Q4HP PRN tablet 08/15/17 Amlodipine Besylate [Norvasc 2.5 mg Tablet] 2.5 mg PO DAILY tablet 08/15/17 Amox Tr/Potassium Clavulanate [Augmentin "500" Tablet] 1 tab PO Q8 tablet 04/22 Ascorbic Acid [Vitamin C 500 mg Tablet] 500 mg PO BID tablet 08/15/17 Aspirin [Aspirin 81 mg Chewable Tablet] 81 mg PO WSUPPER tab.chew 08/15/17 Ferrous Sulfate [Feosol 325 mg Tablet] 325 mg PO BIDPCBS tablet 08/15/17 Ipratropium/Albuterol Sulfate [Duoneb 3 ml Ampul] 3 ml NEB RTQ6HP PRN vial.neb 08/15/17 Lactulose [Cephulac Syrup 20 gm/30 ml Udcup] 20 gm PO BID udc 08/15/17 Levofloxacin [Levaquin 500 mg Tablet] 500 mg PO DAILY tablet 08/15/17 Lisinopril [Prinivil 10 mg Tablet] 10 mg PO DAILY tablet 08/15/17 Lorazepam [Ativan 0.5 mg Tablet] 0.5 mg PO BIDP PRN #10 tablet 08/15/17 Magnesium Oxide [Mag-Ox 400 mg Tablet] 400 mg NG BID tablet 08/15/17 Metoprolol Succinate [Toprol Xl 25 mg Tab.sr] 25 mg PO DAILY tab.sr.24h Nicotine [Nicoderm 14 mg/24 Hr Transdermal Patch] 1 each TD DAILYP PRN patch.td24 08/15/17 Oxycodone HCl 5 mg PO Q12HP PRN #10 tablet 08/15/17 Vit/Dha [ Multi + Dha Capsule] 1 cap PO DAILY capsule Rivaroxaban [Xarelto 10 mg Tablet] 10 mg PO WSUPPER tablet 08/15/17 Tiotropium [place] [Spiriva Handihaler 5 Cap/Kit (18 Mcg/Cap)] 1 cap IH DAILY kit 08/15/17 History of Present Illness Admission Date/PCP: 08/05/17 02:36 JONATHAN MOORE NP History of Present Illness: REGGIE ZHENG is a 66 year old female with a past medical history of osteoporosis, hypertension, dyslipidemia, COPD with oxygen dependence and chronic back pain. Patient presented due to aching pain to the right hip 12 hours followed by the sound of a snap while walking followed by excruciating pain. Since unable to bear weight she fell to the ground on the right side without sustaining trauma or loss of consciousness. In the emergency room she was found to have an acute right femoral neck fracture. Patient reported history of recent left-sided pathologic fracture secondary to severe osteoporosis. Her previous surgery required conscious sedation given underlying COPD. Patient was admitted under the hospitalist service due to comorbidities. Hospital Course Hospital Course: Patient underwent right total hip arthroplasty on August [address] Hunter. Patient tolerated procedure well. Her postoperative course was complicated by anemia which required 1 unit of packed red blood cells. Her hemoglobin then remained stable. She has been discharged on iron and vitamin C for that purpose. Patient also developed postoperative ileus which required insertion of an NG tube. Patient was placed on IV fluids, IV Reglan and bowel regimen and resolved uneventfully. Patient also developed a left lower lobe pneumonia. At the time of discharge she is to continue Augmentin and Levaquin with a stop date of August 21. As far as DVT prophylaxis patient is being discharged on Xarelto which recommend for her to take for a month. Patient required evaluation by cardiology service because open presentation and there was a short run of asymptomatic V. tach. Patient had noted experience any further episodes. She had been placed on Toprol-XL. All electrolyte abnormalities have been corrected at the time of discharge. Recommend weekly BMP and magnesium follow-up and replacement if deemed needed. Patient has remained stable after a complication of postoperative ileus. Since she had achieved maximum benefit of hospitalization stay and needed more intense rehab prompted to discharge. Physical Exam Vital Signs: Temp Pulse Resp BP Pulse Ox 98.9 F 80 20 135/81 H 96 08/15/17 03:26 08/15/17 08:25 08/15/17 08:25 08/15/17 03:26 08/15/17 08:25 Intake & Output 08/14/17 08/15/17 08/16/17 06:59 06:59 06:59 Intake Total 1212 624 Output Total 1000 1300 Balance 212 -676 Weight 60 kg 59.9 kg General appearance: PRESENT: no acute distress, cooperative, thin Head exam: PRESENT: atraumatic, normocephalic Eye exam: PRESENT: conjunctiva pink, EOMI, PERRLA Ear exam: PRESENT: normal external ear exam Mouth exam: PRESENT: moist Neck exam: PRESENT: full ROM. ABSENT: JVD, lymphadenopathy, tenderness - Adequate movement of air with left lower lobe crackles Cardiovascular exam: PRESENT: RRR. ABSENT: diastolic murmur, systolic murmur Vascular exam: PRESENT: normal capillary refill GI/Abdominal exam: PRESENT: normal bowel sounds, soft. ABSENT: tenderness Extremities exam: PRESENT: full ROM, +2 edema Musculoskeletal exam: PRESENT: ambulatory Neurological exam: PRESENT: alert, awake, oriented to person, oriented to place , oriented to time, oriented to situation Psychiatric exam: PRESENT: appropriate affect, normal mood Skin exam: PRESENT: intact, normal color Results Laboratory Results: 08/14/17 05:59 08/15/17 04:46 08/15/17 04:46 Sodium 134.4 L Potassium 5.3 H D Chloride 101 Carbon Dioxide 26 D Anion Gap 7 BUN 8 Creatinine 0.43 L Est GFR ( Amer) > 60 Est GFR (Non-Af Amer) > 60 Glucose 92 Calcium 8.4 Magnesium 1.7 08/06/17 08/06/17 07:39 07:39 Troponin I < 0.012 NT-Pro-B Natriuret Pep 765 Impressions: Hip/Pelvis X-Ray 08/04/17 23:59 IMPRESSION: Fracture of the right femoral neck. Chest X-Ray 08/05/17 00:00 IMPRESSION: No acute cardiopulmonary findings. Pelvis X-Ray 08/05/17 11:48 IMPRESSION: Right hip replacement in good positioning Abdomen/Pelvis CT 08/09/17 00:00 IMPRESSION: Patchy consolidation in the left lower lobe. Diffusely dilated small bowel with multiple air-fluid levels, no distinct transition point is identified. Multiple colonic air-fluid levels are noted as well. No distinct bowel wall thickening is identified or free fluid. This appearance may represent developing obstruction or ileus. Transfer Plan - Disposition Transfer Plan: Transfer for acute rehab. - Time Spent with Patient Time spent with patient: Greater than 30 Minutes Qualifiers - * PATEINT BEING DISCHARGED WITH ANY OF THE FOLLOWING DIAGNOSIS?: No
[2017-08-15 13:53] VITALS: BP 141/75
--- NOTE | 2017-08-15 18:43 | PDOC PROGRESS REPORT ---
Subjective Progress Note for:: 08/06/17 Subjective:: Patient seems to be doing better with gradual improvement. Pt is denying any chest arm or neck discomfort. Patient denying any PND, orthopnea. Patient denied any sustained palpitations, dizziness, syncope, near syncope. Patient denying any fever chills. Patient denying any other significant discomfort. Patient is maintaining sinus rhythm. Review of systems: Rest review of systems negative. Medications: Medications have been reviewed. Reason For Visit: RIGHT FEMORAL NECK FRACTURE Physical Exam Vital Signs: Temp Pulse Resp BP Pulse Ox 98.6 F 96 12 103/62 98 08/06/17 16:00 08/06/17 16:00 08/06/17 16:00 08/06/17 16:00 08/06/17 16:00 Intake & Output 08/05/17 08/06/17 08/07/17 06:59 06:59 06:59 Intake Total 5170 880 Output Total 3535 Balance 1635 880 Weight 66.8 kg Exam: GENERAL: well-nourished and in no acute distress. Alert and oriented x3 HEAD: Atraumatic, normocephalic. EYES: Pupils equal round and reactive to light, extraocular movements intact, sclera anicteric, conjunctiva are normal. ENT: TMs normal, nares patent, oropharynx clear without exudates. Moist mucous membranes. No oral ulcerations or bleeding gums noted NECK: supple without lymphadenopathy. Trachea is central. No cervical or axillary lymphadenopathy noted. Carotids are 2+, JVD WNL LUNGS: Respiration seems nonlabored, no significant accessory muscle action noted. Breath sounds clear to auscultation bilaterally and equal noted. No wheezes rales or rhonchi noted. No significant dullness noted on percussion. CHEST: Palpation of the chest wall shows no significant chest wall tenderness. No other significant abnormalities noted. HEART: [place] DRY END TESTER, No PSH, 1/6 GUILLERMO aortic area, 1/6 whiteside systolic murmur mitral area, no rubs, no gallops. ABDOMEN: Soft, no significant tenderness appreciated, normoactive bowel sounds. No guarding, no rebound. No rigidity noted . No masses appreciated. EXTREMITIES: Pedal pulses are 1-2+, no calf tenderness noted. No clubbing or cyanosis. negative pedal edema noted NEUROLOGICAL: Focused neurological exam showed no significant neurologic deficit. Normal speech, no focal weakness appreciated. PSYCH: Normal mood, normal affect. Judgment and insight within normal limits. SKIN: No significant ecchymosis, skin is noted to be warm. MUSCULOSKELETAL EXAM: No significant acute joint swelling noted. Postsurgical changes noted right hip. Results Laboratory Results: 08/06/17 07:39 08/06/17 07:39 08/06/17 08/06/17 08/06/17 07:39 07:39 07:39 WBC 7.9 RBC 2.87 L Hgb 9.5 L D Hct 27.6 L MCV 96 MCH 33.2 MCHC 34.6 RDW 12.6 Plt Count 200 Seg Neutrophils % 80.0 H Lymphocytes % 9.8 L Monocytes % 9.7 Eosinophils % 0.2 Basophils % 0.3 Absolute Neutrophils 6.4 Absolute Lymphocytes 0.8 Absolute Monocytes 0.8 Absolute Eosinophils 0.0 Absolute Basophils 0.0 Sodium 126.1 L Potassium 4.3 Chloride 92 L Carbon Dioxide 29 Anion Gap 5 BUN 13 Creatinine 0.68 Est GFR ( Amer) > 60 Est GFR (Non-Af Amer) > 60 Glucose 120 H Calcium 8.3 L Magnesium 1.5 L Triglycerides 56 Cholesterol 136.42 LDL Cholesterol Direct 51 VLDL Cholesterol 11.0 HDL Cholesterol 72 08/06/17 14:46 WBC RBC Hgb Hct MCV MCH MCHC RDW Plt Count Seg Neutrophils % Lymphocytes % Monocytes % Eosinophils % Basophils % Absolute Neutrophils Absolute Lymphocytes Absolute Monocytes Absolute Eosinophils Absolute Basophils Sodium Potassium Chloride Carbon Dioxide Anion Gap BUN Creatinine Est GFR ( Amer) Est GFR (Non-Af Amer) Glucose Calcium Magnesium 1.6 Triglycerides Cholesterol LDL Cholesterol Direct VLDL Cholesterol HDL Cholesterol 08/06/17 08/06/17 07:39 07:39 Troponin I < 0.012 NT-Pro-B Natriuret Pep 765 EKG Comments: Telemetry strips reviewed. It shows patient maintaining sinus rhythm. There is no recurrence of ventricular tachyarrhythmias. Earlier strips reported to show ventricular tachycardia never materialized. No significant cardiac dysrhythmia noted. Impressions: Hip/Pelvis X-Ray 08/04/17 23:59 IMPRESSION: Fracture of the right femoral neck. Chest X-Ray 08/05/17 00:00 IMPRESSION: No acute cardiopulmonary findings. Pelvis X-Ray 08/05/17 11:48 IMPRESSION: Right hip replacement in good positioning Assessment & Plan - Diagnosis (1) Cardiac dysrhythmia, unspecified Qualifiers: Arrhythmia type: unspecified cardiac arrhythmia Qualified Code(s): I49.9 - Cardiac arrhythmia, unspecified Is this a current diagnosis for this admission?: Yes (2) Fracture of femoral neck, right, closed Qualifiers: Encounter type: subsequent encounter Is this a current diagnosis for this admission?: Yes (3) Tobacco abuse Is this a current diagnosis for this admission?: Yes (4) COPD (chronic obstructive pulmonary disease) Qualifiers: COPD type: emphysema Emphysema type: unspecified Qualified Code(s): J43.9 - Emphysema, unspecified Is this a current diagnosis for this admission?: Yes (5) Hypertension Qualifiers: Hypertension type: essential hypertension Qualified Code(s): I10 - Essential (primary) hypertension Is this a current diagnosis for this admission?: Yes - Notes Notes: No recurrence of ventricular dysrhythmia noted. 2D echo results to be reviewed when available. Cardiac dysrhythmia: Patient noted to be normal sinus rhythm. Status post right hip surgery currently stable. Tobacco abuse: Patient had been advised to quit smoking. Continue with nicotine patch. COPD: Currently is stable. Hypertension: Currently well controlled. Will review 2D echocardiogram results when available. - Time Time with patient: 15-25 minutes - More than 50% of the time spent coordinating care, discussing management plans with involved caregivers. Management plans discussed with involved personnels. Medical decision making was of moderate to high complexity, patient's has multiple comorbidities. Medications reviewed and adjusted accordingly: Yes
== END 2017-08-15 16:52 | DRG 469 ==
LOC: ER 23:25 → EH 08-05 02:36 → UNDOADMIN 08-05 02:36 → 4S 08-05 14:44
PROVIDERS: ADMIT Internal Medicine; ATTEND Internal Medicine
PROC: 5A09457 Assistance with Respiratory Ventilation, 24-96 Consecutive Hours, Continuous Positive Airway Pressure (ICD-10-PCS; 2017-08-05)
PROC: 3E0F73Z Introduction of Anti-inflammatory into Respiratory Tract, Via Natural or Artificial Opening (ICD-10-PCS; 2017-08-05)
PROC: 0SR902Z Replacement of Right Hip Joint with Metal on Polyethylene Synthetic Substitute, Open Approach (ICD-10-PCS; principal; 2017-08-05 10:00)
PROC: 30233N1 Transfusion of Nonautologous Red Blood Cells into Peripheral Vein, Percutaneous Approach (ICD-10-PCS; 2017-08-08)
PROC: 0D9670Z Drainage of Stomach with Drainage Device, Via Natural or Artificial Opening (ICD-10-PCS; 2017-08-10)
DX: M80.051A Age-related osteoporosis with current pathological fracture, right femur, initial encounter for fracture (principal); J18.9 Pneumonia, unspecified organism; J96.21 Acute and chronic respiratory failure with hypoxia; D62 Acute posthemorrhagic anemia; E87.1 Hypo-osmolality and hyponatremia; I47.2 Ventricular tachycardia; K56.7 Ileus, unspecified; I10 Essential (primary) hypertension; E87.5 Hyperkalemia; G89.29 Other chronic pain; M54.9 Dorsalgia, unspecified; M19.90 Unspecified osteoarthritis, unspecified site; F32.9 Major depressive disorder, single episode, unspecified; J43.9 Emphysema, unspecified; F17.200 Nicotine dependence, unspecified, uncomplicated; I95.9 Hypotension, unspecified; K59.00 Constipation, unspecified; R33.9 Retention of urine, unspecified; Z96.642 Presence of left artificial hip joint; Y95 Nosocomial condition; Z90.49 Acquired absence of other specified parts of digestive tract; Z80.1 Family history of malignant neoplasm of trachea, bronchus and lung; Z79.82 Long term (current) use of aspirin; Z79.899 Other long term (current) drug therapy; Z91.81 History of falling; Z85.3 Personal history of malignant neoplasm of breast; Z99.81 Dependence on supplemental oxygen; Z87.310 Personal history of (healed) osteoporosis fracture
CPT/HCPCS: 01214; 36415; 36430; 71045; 72170; 74177; 80048; 80053; 80061; 83735; 83880; 84484; 85025; 85027; 85610; 86850; 86900; 86901; 86920; 88304; 88311; 93005; 93010; 93306; 94660; 94667; 94668; 94799; 96374; 96375; 96376; 99285; C1713; C9290; G8978-GP; G8979-GP; G8987-GO; G8988-GO; J0131; J1100; J1644; J1885; J1940; J2060; J2250; J2270; J2405; J2543; J2550; J2704; J2765; J3010; J3370; J3490; J7030; J7060; J7620; P9016

== ENCOUNTER 2017-08-31 19:53 | Emergency (ER) | payer MEDICARE, OTHER ==
[2017-09-01 01:11] LABS: ANION GAP 11 (5-19); BLOOD UREA NITROGEN 10 mg/dL (7-20); CALCIUM 8.7 mg/dL (8.4-10.2); CARBON DIOXIDE 29 mmol/L (22-30); CHLORIDE 97 mmol/L (98-107); GLUCOSE 93 mg/dL (75-110); POTASSIUM 4.4 mmol/L (3.6-5.0); SODIUM 137.1 mmol/L (137-145)
--- NOTE | 2017-09-01 01:20 | ER Document Report ---
ED General - General Chief Complaint: Leg Swelling Stated Complaint: LEG PAIN Time Seen by Provider: 08/31/17 22:26 Notes: Patient is a 66-year-old female who is postop right femoral neck fracture repair. She says that after stay in the hospital she was placed on amlodipine and another blood pressure medication. She says she is only taking lisinopril. She was also on blood thinners. After starting the Norvasc he started developed some edema in her leg while she was in rehab. About 5 days ago while at rehab the gun ultrasound of her leg which showed no evidence of DVT. She was eventually discharged home. She will follow up with Dr. Hunter yesterday and her leg edema is worsening. She has edema in both legs but it is worse in her right. There is a goalie therefore place an [place] boot on her leg. Patient then came to the ER for further evaluation. Patient says she now remembers that in the past when she was on amlodipine or Norvasc she would get significant amounts of leg edema. She denies any chest pain. No shortness of breath. No recent fevers. No other complaints at this time. TRAVEL OUTSIDE OF THE [place] IN LAST 30 DAYS: No - Related Data Allergies/Adverse Reactions: No Known Allergies Allergy (Verified 08/05/17 00:08) Past Medical History - Social History Smoking Status: Former Smoker Chew tobacco use (# tins/day): No Frequency of alcohol use: None Drug Abuse: None Family History: Hypertension - Father, Malignancy - Mother with lung cancer Patient has suicidal ideation: No Patient has homicidal ideation: No - Past Medical History Cardiac Medical History: Reports: Hx Hypertension Denies: Hx Coronary Artery Disease, Hx Heart Attack Pulmonary Medical History: Reports: Hx COPD, Hx Pneumonia Denies: Hx Asthma, Hx Bronchitis, Hx Tuberculosis Neurological Medical History: Denies: Hx Cerebrovascular Accident, Hx Seizures Renal/ Medical History: Denies: Hx Peritoneal Dialysis Malignancy Medical History: Reports: Hx Breast Cancer GI Medical History: Denies: Hx Hepatitis, Hx Hiatal Hernia, Hx Ulcer Musculoskeltal Medical History: Reports Hx Arthritis Psychiatric Medical History: Reports: Hx Anxiety, Hx Depression Infectious Medical History: Denies: Hx Hepatitis Past Surgical History: Reports: Hx Breast Surgery - Lumpectomy, Hx Gynecologic Surgery - lainey salpingooophorectomy, Hx Hysterectomy, Hx Mastectomy - LUMPECTOMY , Hx Orthopedic Surgery - Back surgery 2, open reduction internal fixation left femur fracture 2017, Hx Tubal Ligation. Denies: Hx Open Heart Surgery, Hx Pacemaker - Immunizations Hx Diphtheria, Pertussis, Tetanus Vaccination: Yes - 2001 Hx Pneumococcal Vaccination: 07/05/15 Review of Systems - Review of Systems Notes: My Normal Review Basic REVIEW OF SYSTEMS: CONSTITUTIONAL : Denies fever, chills, or sweats. Denies recent illness. RESPIRATORY: Denies cough, cold, or chest congestion. Denies shortness of breath, difficulty breathing, or wheezing. GASTROINTESTINAL: Denies abdominal pain. Denies nausea, vomiting, or diarrhea. GENITOURINARY: Denies difficulty urinating, painful urination, burning, frequency, or blood in urine. MUSCULOSKELETAL: Leg edema SKIN: Denies rash or skin lesions. LYMPHATIC: leg edema. NEUROLOGICAL: Denies altered mental status or loss of consciousness. Denies headache. Denies weakness or paralysis or loss of use of either side. Denies problems with gait or speech. Denies sensory or motor loss. ALL OTHER SYSTEMS REVIEWED AND NEGATIVE. Physical Exam - Vital signs Vitals: Temp Pulse Resp BP Pulse Ox 98.4 F 71 20 101/54 L 94 08/31/17 20:00 08/31/17 20:00 08/31/17 20:00 08/31/17 20:00 08/31/17 20:00 - Notes Notes: General Appearance: Well nourished, alert, cooperative, no acute distress, no obvious discomfort. Well-appearing. Vitals: reviewed, See vital signs table. Head: no swelling or tenderness to the head Eyes: PERRL, EOMI, Conjuctiva clear Mouth: No decreasd moisture Lungs: No wheezing, No rales, No rhonci, No accessory muscle use, good air exchange bilaterally. Heart: Normal rate, Regular rythm, No murmur, no rub Abdomen: Normal BS, soft, No rigidity, No abdominal tenderness, No guarding, no rebound, no abdominal masses, no organomegaly Extremities: strength 5/5 in all extremities, good pulses in all extremities, no swelling or tenderness in the extremities, 3+ edema in the right leg. 2+ edema in the left leg. Skin: warm, dry, appropriate color, no rash Neuro: speech clear, oriented x 3, normal affect, responds appropriately to questions. Course - Re-evaluation Re-evalutation: 09/01/17 01:19 Patient's chemistry panel is been pending for a long time and therefore called lab. Lab said they are trying to get a manufacturing quality technician to run to the machines and he can release the results. They said it should be only another 5 or 10 minutes. 09/01/17 06:52 Patient's chemistry panel came back as normal kidney function and normal electrolytes. I will place her on some Lasix and have her hold her amlodipine. I did not obtain a venous ultrasound of her leg as she just had one a few days ago which was negative. I encouraged her follow-up closely with her primary care doctor as well as Dr. Hunter. I encouraged her return to ER if she has worsening swelling, fevers, or she feels unwell. I encourage her to keep her legs elevated. Patient agrees with plan will be discharged home. Dictation of this chart was performed using voice recognition software; therefore, there may be some unintended grammatical errors. - Vital Signs Vital signs: Temp Pulse Resp BP Pulse Ox 97.8 F 65 18 109/64 100 09/01/17 01:35 09/01/17 01:35 09/01/17 01:35 09/01/17 01:35 09/01/17 01:35 - Laboratory Result Diagrams: 08/31/17 23:15 Laboratory results interpreted by me: 08/31/17 23:15 Chloride 97 L Creatinine 0.48 L Discharge - Discharge Clinical Impression: Leg swelling Condition: Good Disposition: HOME, SELF-CARE Additional Instructions: PLease stop taking the Norvasc. please start taking the Lasix. please follow up with your doctor in 3-5 days for reevaluation. please return to the ER if you have worsening swelling, recurrent high blood pressure, chest pain, difficulty breathing, fevers, or feel unwell. Prescriptions: Furosemide [Lasix 20 mg Tablet] 20 mg PO DAILY #7 tablet Referrals: ROBLES FINNEGAN MD [Primary Care Provider] - Follow up in 3-5 days
[2017-09-01] MEDS ORDERED: FUROSEMIDE 40 MG TABLET PO ONE (01:24)
[2017-09-01 01:56] VITALS: BP 109/64
== END 2017-09-01 01:35 | disposition home or self-care (01) ==
LOC: ER 19:53
DX: M79.89 Other specified soft tissue disorders (principal); R60.0 Localized edema; Z98.890 Other specified postprocedural states; I10 Essential (primary) hypertension; J44.9 Chronic obstructive pulmonary disease, unspecified; Z85.3 Personal history of malignant neoplasm of breast; Z87.891 Personal history of nicotine dependence
CPT/HCPCS: 99283; 36415; 80048; A9270

== ENCOUNTER 2018-01-27 09:48 | Emergency (ER) | payer MEDICARE, OTHER ==
[2018-01-27] MEDS ORDERED: IPRATROPIUM/ALBUTEROL 0.5-2.5 MG/3 ML AMPUL NEB ONE ×3 (10:14→11:15)
[2018-01-27] MEDS ORDERED: METHYLPREDNISOLONE INJ 125 MG/2 ML SDV IV ONE (10:17)
[2018-01-27 10:20] LABS: ABSOLUTE BASOPHILS # (AUTO) 0.1 10^3/uL (0.0-0.2); ABSOLUTE EOSINOPHILS # (AUTO) 0.1 10^3/uL (0.0-0.6); ABSOLUTE LYMPHOCYTES (AUTO) 0.8 10^3/uL (0.5-4.7); ABSOLUTE MONOCYTES (AUTO) 0.1 10^3/uL (0.1-1.4); ABSOLUTE NEUT (AUTO) 10.5 10^3/uL (1.7-8.2); BASOPHILS % (AUTO) 0.5 % (0-2); EOSINOPHILS % (AUTO) 0.7 % (0-6); HEMOGLOBIN 13.3 g/dL (12.0-15.5); LYMPHOCYTES % (AUTO) 6.9 % (13-45); MEAN CORPUSCULAR HEMOGLOBIN 32.8 pg (27.0-33.4); MEAN CORPUSCULAR HGB CONC 34.1 g/dL (32.0-36.0); MEAN CORPUSCULAR VOLUME 96 fl (80-97); MONOCYTES % (AUTO) 0.7 % (3-13); PLATELET COUNT 359 10^3/uL (150-450); RED BLOOD COUNT 4.06 10^6/uL (3.72-5.28); SEGMENTED NEUTROPHILS % (AUTO) 91.2 % (42-78); TOTAL CELLS COUNTED % (AUTO) 100 %; WHITE BLOOD COUNT 11.5 10^3/uL (4.0-10.5)
[2018-01-27 10:41] LABS: ALANINE AMINOTRANSFERASE 30 U/L (9-52); ALBUMIN 5.2 g/dL (3.5-5.0); ALKALINE PHOSPHATASE 58 U/L (38-126); ANION GAP 10 (5-19); ASPARTATE AMINO TRANSFERASE 46 U/L (14-36); BILIRUBIN,DIRECT 0.7 mg/dL (0.0-0.4); BILIRUBIN,TOTAL 1.1 mg/dL (0.2-1.3); BLOOD UREA NITROGEN 8 mg/dL (7-20); CALCIUM 10.4 mg/dL (8.4-10.2); CARBON DIOXIDE 31 mmol/L (22-30); CHLORIDE 95 mmol/L (98-107); GLUCOSE 96 mg/dL (75-110); POTASSIUM 4.8 mmol/L (3.6-5.0); SODIUM 135.7 mmol/L (137-145); TOTAL PROTEIN 8.1 g/dL (6.3-8.2)
--- NOTE | 2018-01-27 10:43 | ER Document Report ---
ED Respiratory Problem - General Chief Complaint: Respiratory Distress Stated Complaint: DIFFICULTY BREATHING Time Seen by Provider: 01/27/18 10:14 Notes: Patient with a history of emphysema who says she is having difficulty breathing since about 8 AM this morning. She has home O2 that she has on most of the time at 3 L. She has home nebulizers for Symbicort and albuterol. Patient had a total hip replacement in August and uses a walker to get around her house. She was doing some "exercises" for her hip that she does about 3 times a week and as she was doing these activities, she began to feel short of breath. She has not had any cough. No phlegm. No leg swelling. Never had any blood clots in her legs. History of COPD, stopped smoking about 8 years ago. Thinks she has had a low-grade fever. Hypertension. GERD. TRAVEL OUTSIDE OF THE [place] IN LAST 30 DAYS: No - Related Data Allergies/Adverse Reactions: No Known Allergies Allergy (Verified 08/05/17 00:08) Past Medical History - Social History Smoking Status: Former Smoker - Stopped 8 years ago. Chew tobacco use (# tins/day): No Family History: Reviewed & Not Pertinent, Hypertension - Father, Malignancy - Mother with lung cancer Patient has suicidal ideation: No Patient has homicidal ideation: No - Past Medical History Cardiac Medical History: Reports: Hx Hypertension, Other - Says she has been told that she has sinus tachycardia. Denies: Hx Congestive Heart Failure Pulmonary Medical History: Reports: Hx COPD, Hx Pneumonia Malignancy Medical History: Reports: Hx Breast Cancer Musculoskeletal Medical History: Reports Hx Arthritis Psychiatric Medical History: Reports: Hx Anxiety, Hx Depression Infectious Medical History: Denies: Hx Hepatitis Past Surgical History: Reports: Hx Breast Surgery - Lumpectomy, Hx Gynecologic Surgery - lainey salpingooophorectomy, Hx Hysterectomy, Hx Mastectomy - LUMPECTOMY , Hx Orthopedic Surgery - Back surgery 2, open reduction internal fixation left femur fracture 2017, Hx Tubal Ligation - Immunizations Hx Diphtheria, Pertussis, Tetanus Vaccination: Yes - 2001 Hx Pneumococcal Vaccination: 07/05/15 Review of Systems - Review of Systems Notes: REVIEW OF SYSTEMS: CONSTITUTIONAL : Thinks she has had a low-grade fever. EENT: Denies eye, ear, nose or mouth or throat pain or other symptoms. CARDIOVASCULAR: Denies chest pain. RESPIRATORY: Denies cough, chest congestion, but has shortness of breath. See HPI. GASTROINTESTINAL: Denies abdominal pain or nausea, vomiting, or diarrhea. GENITOURINARY: Denies difficulty or painful urinating, urinary frequency, blood in urine. MUSCULOSKELETAL: Denies back or neck pain. Denies joint pain or swelling. Negative Homans bilaterally. SKIN: Denies rash or skin lesions. NEUROLOGICAL: Denies LOC or altered mental status. Denies headache. Denies sensory loss or motor deficits. ALL OTHER SYSTEMS REVIEWED AND NEGATIVE. Physical Exam - Vital signs Vitals: Temp 100.1 F 01/27/18 09:58 Interpretation: Hypoxic - O2 sat by EMS was 98%., Febrile - Low-grade - Notes Notes: PHYSICAL EXAMINATION: GENERAL: Well-appearing, in no acute distress. Anxious. Slightly tachycardic at 103. HEAD: Atraumatic, normocephalic. EYES: Pupils equal round and reactive to light, extraocular movements intact. ENT: oropharynx clear without exudates. Moist mucous membranes. NECK: Normal range of motion, supple. LUNGS: Breath sounds with wheezes throughout both lung cody. Mild respiratory distress. HEART: Regular rate and rhythm without murmurs. Heart rate 105 at bedside by me. ABDOMEN: Soft, nontender. No guarding or rebound. No masses. BACK: No tenderness throughout entire back. EXTREMITIES: Normal range of motion without pain. No edema of either lower extremity. Negative Homans bilaterally. NEUROLOGICAL: Normal speech, gait not tested. Normal sensory, motor, and reflex exams. Awake, alert, and oriented x3. C PSYCH: Normal mood, normal affect. SKIN: Warm, dry, no rashes. Course - Re-evaluation Re-evalutation: 01/27/18 10:46 Patient says the first DuoNeb nebulizer helped her breathing. 01/27/18 12:13 Patient says her breathing is better, even though she still has not gotten her second nebulizer yet. Lungs are really clearing nicely. Patient feels much more comfortable breathing. 01/27/18 13:36 Patient is much better and feels like she can go home. Has home O2, nebulizers , on steroids, no evidence of pneumonia on her chest x-ray. Agree with discharge and outpatient therapy from here. - Vital Signs Vital signs: Temp Pulse Resp BP Pulse Ox 100.1 F 20 122/73 97 01/27/18 09:58 01/27/18 11:01 01/27/18 11:01 01/27/18 11:01 - Laboratory Result Diagrams: 01/27/18 09:30 01/27/18 09:30 Laboratory results interpreted by me: 01/27/18 01/27/18 09:30 09:30 WBC 11.5 H Seg Neutrophils % 91.2 H Lymphocytes % 6.9 L Monocytes % 0.7 L Absolute Neutrophils 10.5 H Sodium 135.7 L Chloride 95 L Carbon Dioxide 31 H Calcium 10.4 H Direct Bilirubin 0.7 H AST 46 H Albumin 5.2 H - EKG Interpretation by Me EKG shows normal: Sinus rhythm Rate: Tachycardia - 105 Voltage: Consistant with LVH When compared to previous EKG there are: No significant change Discharge - Discharge Clinical Impression: COPD exacerbation Condition: Stable Disposition: HOME, SELF-CARE Additional Instructions: Chronic Obstructive Lung Disease You have chronic obstructive lung disease (COPD). The symptoms come from emphysema (damage to small airways, with trapping of air in large sacks in the lung) and chronic bronchitis (repeated infection and damage to larger airways). The cause is almost always cigarette smoking, although dust exposure, asthma, and infections contribute. You should avoid fumes, dust, and smoke (especially tobacco smoke). Your condition will flare from time to time. There is no cure, but the symptoms can be treated. Bronchodilators (asthma medicine) are often helpful. Antibiotics help when infection is present. When shortness of breath is severe, we may prescribe cortisone medication. If medicine doesn't help enough, we can arrange for you to have an oxygen tank at home. Notify your doctor at once if sputum becomes thick, foul, or bloody, if you develop a fever or chest pain, or if your shortness of breath worsens. STEROID MEDICATION: You have been given an injection of or oral medicine of the cortisone/ steroid class. This medication is used to control inflammation or allergy. Kevin t is usually only given for a short period of time, until the acute process subsides. There are usually no side effects from short-term use of cortisone-like medications. Some persons feel an increased sense of well-being and are not sleepy at bedtime. Long-term use of cortisone medications is best avoided, unless required for a severe condition. If your condition does not remit, or relapses after the course of corticosteroid medication, you should consult your physician. INHALED BRONCHODILATORS: You have received treatment(s) of and/or prescription for an inhaled bronchodilator -- a medication which stimulates the airways in the lung to dilate. This improves the flow of air in asthma, bronchitis, and emphysema. These medicines have some similarity to adrenaline, and can cause similar side effects: shakiness, racing heart, and a sense of nervousness. These side effects decrease with time. Contact your doctor if these side effects are severe. Do not over-use the medicine. Too-frequent use of the inhaler may make it ineffective. Call your doctor if the inhaler is not controlling your symptoms at the prescribed doses. I would recommend you use your albuterol nebulizer 4 times a day for the next few days whether your wheezing or not. After that you can return to using it only if needed. USE OF ACETAMINOPHEN (Tylenol): Acetaminophen may be taken for pain relief or fever control. It's much safer than aspirin, offering a wider range of "safe" dosages. It is safe during . Some brand names are Tylenol, Panadol, Datril, Anacin 3, Tempra, and Liquiprin. Acetaminophen can be repeated every four hours. The following are maximum recommended dosages: WEIGHT Dose Drops Elixir Chewable( 80mg) (LBS.) drprs=droppers tsp=teaspoon >89 pounds or adults 650 mg to 900 mg Acetaminophen can be repeated every four hours. Maximum dose not to exceed 4000 mg a day. These maximum recommended dosages are slightly higher than the dosages written on the product container, but these dosages are very safe and below the toxic dosage for acetaminophen. FOLLOW-UP CARE: If you have been referred to a physician for follow-up care, call the physician s office for an appointment as you were instructed or within the next two days. If you experience worsening or a significant change in your symptoms, notify the physician immediately or return to the Emergency Department at any time for re-evaluation. Prescriptions: Albuterol Sulfate [Albuterol Sulfate 2.5mg/3 mL] 2.5 mg IH Q4 #25 ml Prednisone [Deltasone 10 mg Tablet] 10 mg PO ASDIR PRN #21 tablet PRN Reason: Referrals: ROBLES FINNEGAN MD [Primary Care Provider] - Follow up as needed
--- NOTE | 2018-01-27 11:33 | RADIOLOGY REPORT (SQ) ---
EXAM DESCRIPTION: CHEST SINGLE VIEW COMPLETED DATE/TIME: 01/27/2018 11:19 am REASON FOR STUDY: COPD, S OB COMPARISON: Chest films 08/05/2017, 02/01/2017 EXAM PARAMETERS: NUMBER OF VIEWS: One view. TECHNIQUE: Single frontal radiographic view of the chest acquired. RADIATION DOSE: NA LIMITATIONS: None. FINDINGS: LUNGS AND PLEURA: Upper lobes are hyperlucent from obstructive disease. Stable lingular s carring. No acute infiltrates, no pleural effusion or pneumothorax. MEDIASTINUM AND HILAR STRUCTURES: No masses. Contour normal. HEART AND VASCULAR STRUCTURES: Heart normal in size. Normal vasculature. BONES: Old healed right posterior rib fractures HARDWARE: None in the chest. OTHER: No other significant finding. IMPRESSION: Obstructive lung disease. Stable lingular scarring. No acute findings TECHNICAL DOCUMENTATION: JOB ID: [id number]- All Rights Reserved Reading location - IP/workstation name: [email or web address]
[2018-01-27] MEDS ORDERED: ACETAMINOPHEN 325 MG TABLET PO ONE (12:43)
[2018-01-27 14:04] VITALS: BP 126/80
--- NOTE | 2018-01-27 21:52 | EKG REPORT ---
SEVERITY:- ABNORMAL ECG - ATRIAL FLUTTER, A-RATE 340 LOW VOLTAGE IN FRONTAL LEADS PROBABLE LVH WITH SECONDARY REPOL ABNRM : Confirmed by: Shelly Alves MD 27-Jan-2018 21:51:18
--- NOTE | 2018-01-27 21:52 | EKG REPORT ---
SEVERITY:- ABNORMAL ECG - SINUS TACHYCARDIA LOW VOLTAGE IN FRONTAL LEADS PROBABLE LVH WITH SECONDARY REPOL ABNRM : Confirmed by: Shelly Alves MD 27-Jan-2018 21:50:42
== END 2018-01-27 14:05 | disposition home or self-care (01) ==
LOC: ER 09:48
DX: J44.1 Chronic obstructive pulmonary disease with (acute) exacerbation (principal); Z85.3 Personal history of malignant neoplasm of breast; Z90.710 Acquired absence of both cervix and uterus; Z96.649 Presence of unspecified artificial hip joint
CPT/HCPCS: 93005; 94640 ×2; 99285; 96374; 36415; 85025; 80053; 84484; 71045; 93010; A9270 ×2; J2930; J7620

== ENCOUNTER → 2018-10-09 | Outpatient (CLI) | payer MEDICARE, OTHER ==
--- NOTE | 2018-10-10 12:53 | XCELERA REPORT ---
[address] [address] Lower Extremity Arterial Evaluation Name: REGGIE ZHENG Age: 67 yrs Gender: Female : 1950 Patient Status: Outpatient Patient Location: [facility] Study Date: 10/09/2018 01:30 PM Procedure: A color flow and duplex scan of the lower extremity arteries was performed bilaterally with velocity and waveform anaylsis. Ankle brachial indicies performed. Reason For Study: ABSENT OF PULSES Ordering Physician: MARY BAUMAN Performed By: Alexia Contreras Measurements and Calculations Right Left TOWER DIRECTOR PSV 143.0 80.8 cm/sec Prox PFA PSV -139.1 -63.7 cm/sec Dist Pop A PSV -34.4 -16.1 cm/sec Mid ZARINA PSV 35.6 28.3 cm/sec Mid BARTENDER SERVER PSV 18.5 20.4 cm/sec Edil Pedis PSV 42.6 18.1 cm/sec Right Side Arterial Evaluation Normal velocity and biphasic waveforms, moderate spectral broadening noted from the Common Femoral artery to the infrageniculate vessels . Ankle Brachial index not obtainable due to non compressibility.. RALPH's are non compressible. Left Side Arterial Evaluation Normal velocity and biphasic waveforms, moderate spectral broadening noted in the Common Femoral artery. In addition a short segment of occlusion is noted, on stokes scale, in the distal Femoral, with monophasic flow,low velocity, spectral broadening, in the Popliteal to infrageniculate level. Ankle Brachial index not obtainable due to non compressibility.. Interpretation Summary Moderate hemodynamically significant lesions in the right lower extremity only, on duplex imaging, at rest. Moderate hemodynamically significant lesions in the left lower extremity only, on duplex imaging, at rest. Arterial disease is indicated ,bilaterally in the inflow, with sequential change in the left Femoral. RALPH's are non compressible, indicating arterial wall stiffening, likely Calcification. : MARY BAUMAN > Mary Bauman
== END ==
LOC: SP 12:58
PROVIDERS: ATTEND Surgery
DX: I73.9 Peripheral vascular disease, unspecified (principal); R09.89 Other specified symptoms and signs involving the circulatory and respiratory systems
CPT/HCPCS: 93925

== ENCOUNTER → 2019-11-03 | Outpatient (CLI) | payer MEDICARE, OTHER ==
[2019-11-03 12:48] LABS: HEMATOCRIT 29.8 % (36.0-47.0); HEMOGLOBIN 10.1 g/dL (12.0-15.5); MEAN CORPUSCULAR HEMOGLOBIN 32.9 pg (27.0-33.4); MEAN CORPUSCULAR HGB CONC 33.9 g/dL (32.0-36.0); MEAN CORPUSCULAR VOLUME 97 fl (80-97); PLATELET COUNT 284 10^3/uL (150-450); RED BLOOD COUNT 3.06 10^6/uL (3.72-5.28); RED CELL DISTRIBUTION WIDTH 13.5 % (11.5-14.0); WHITE BLOOD COUNT 9.5 10^3/uL (4.0-10.5)
[2019-11-03 13:18] LABS: ABSOLUTE LYMPHOCYTES# (MANUAL) 0.4 10^3/uL (0.5-4.7); ALBUMIN 4.5 g/dL (3.5-5.0); ALKALINE PHOSPHATASE 65 U/L (38-126); ANION GAP 5 (5-19); ASPARTATE AMINO TRANSFERASE 41 U/L (14-36); BASOPHILS % (MANUAL) 0 % (0-2); BILIRUBIN,DIRECT 0.1 mg/dL (0.0-0.4); BILIRUBIN,TOTAL 0.5 mg/dL (0.2-1.3); BLOOD UREA NITROGEN 13 mg/dL (7-20); CARBON DIOXIDE 31 mmol/L (22-30); CHLORIDE 91 mmol/L (98-107); EOSINOPHILS % (MANUAL) 0 % (0-6); GLUCOSE 125 mg/dL (75-110); LYMPHOCYTES % (MANUAL) 4 % (13-45); MONOCYTES % (MANUAL) 0 % (3-13); PLATELET COMMENT ADEQUATE; POIKILOCYTOSIS 2+; POTASSIUM 4.7 mmol/L (3.6-5.0); SEGMENTED NEUTROPHILS % (MAN) 96 % (42-78); STOMATOCYTES 2+; TOTAL CELLS COUNTED 100; TOTAL PROTEIN 6.8 g/dL (6.3-8.2)
[2019-11-03 13:23] LABS: C-REACTIVE PROTEIN < 5.0 mg/L (<10.0)
[2019-11-03 13:27] LABS: ERYTHROCYTE SEDIMENTATION RATE 9 mm/hr (0-30)
--- NOTE | 2019-11-03 13:51 | RADIOLOGY REPORT (SQ) ---
EXAM DESCRIPTION: FOOT LEFT COMPLETE IMAGES COMPLETED DATE/TIME: 11/03/2019 1:17 pm REASON FOR STUDY: NON-PRS CHRONIC ULCER OTH PRT LEFT FOOT W FAT LAYER EXPOSED L97.522 NON-PRS CHRON IC ULCER OTH PRT LEFT FOOT W FAT LAYER COMPARISON: None. NUMBER OF VIEWS: Three views. TECHNIQUE: AP, lateral and oblique radiographic images acquired of the left foot. LIMITATIONS: None. FINDINGS: MINERALIZATION: Normal. BONES: No acute fracture or dislocation. No evidence of osteomyelitis. No worrisome bone lesions. JOINTS: No effusions. SOFT TISSUES: There is an ulcer on the dorsum of the foot. OTHER: No other significant finding. IMPRESSION: There is no evidence of osteomyelitis. TECHNICAL DOCUMENTATION: JOB ID: [id number] 2010 [employer]- All Rights Reserved Reading location - IP/workstation name: [email or web address]
== END ==
LOC: WC 12:15
PROVIDERS: ATTEND Preventive Medicine Undersea and Hyperbaric Medicine
DX: L97.522 Non-pressure chronic ulcer of other part of left foot with fat layer exposed (principal)
CPT/HCPCS: 36415; 80053; 85025; 85652; 86140

== ENCOUNTER → 2019-11-05 | Outpatient (CLI) | payer MEDICARE, OTHER ==
--- NOTE | 2019-11-06 09:03 | RADIOLOGY REPORT (SQ) ---
EXAM DESCRIPTION: ARTERIAL LOWER EXTREM BILAT IMAGES COMPLETED DATE/TIME: 11/05/2019 5:32 pm REASON FOR STUDY: LT FOOT ULCER L97.522 NON-PRS CHRONIC ULCER OTH PRT LEFT FOOT W FAT LAYER COMPARISON: None. TECHNIQUE: Dynamic and static andrews scale and color images acquired of the lower extremity arteries. Additional selected spectral images recorded. LIMITATIONS: None. FINDINGS: RIGHT LEG: INFLOW ARTERIES: Not evaluated Common and profunda FEMORAL ARTERIES:Multiphasic waveforms. Normal, no velocity elevation to suggest focal stenosis. Normal color Doppler evaluation. No aneurysm. Superficial femoral artery: High-grade stenosis at its origin, on occluded along the proximal 3rd. Along the mid 3rd of the superficial femoral artery retrograde monophasic flow is seen from collatera ls. Distal right superficial femoral artery is occluded POPLITEAL ARTERY:Monophasic waveforms, inflow via multiple collaterals.. Normal, no velocity elevatio n to suggest focal stenosis. Normal color Doppler evaluation. No aneurysm. PATENT TIBIOPERONEAL TRUNK AND 3 VESSEL RUNOFF: Peroneal artery not identified. Patent posterior tib ial artery, anterior tibial artery and dorsalis pedis artery with monophasic flow, normal velocities OTHER: No other significant finding. LEFT LEG: INFLOW ARTERIES: Not evaluated Common and profunda FEMORAL ARTERIES:Multiphasic waveforms. Normal, no velocity elevation to suggest focal stenosis. Normal color Doppler evaluation. No aneurysm. Superficial femoral artery: 50% narrowing at its origin. Along the mid 3rd, and distal 3rd, left de luna perficial femoral artery is occluded. POPLITEAL ARTERY:Monophasic waveforms, inflow via multiple collaterals. Normal, no velocity elevation to suggest focal stenosis. Normal color Doppler evaluation. No aneurysm. PATENT TIBIOPERONEAL TRUNK AND 3 VESSEL RUNOFF: Peroneal artery not identified. Patent posterior tib ial artery, anterior tibial artery and dorsalis pedis artery with monophasic flow, normal velocities OTHER: No other significant finding. IMPRESSION: Bilateral superficial femoral artery occlusions, collateral flow to the popliteal arteri es with two-vessel runoff bilaterally TECHNICAL DOCUMENTATION: JOB ID: [id number] [employer]- All Rights Reserved Reading location - IP/workstation name: [email or web address]
== END ==
LOC: SP 14:59
PROVIDERS: ATTEND Nurse Practitioner Family
DX: I77.1 Stricture of artery (principal); L97.522 Non-pressure chronic ulcer of other part of left foot with fat layer exposed
CPT/HCPCS: 93925

== ENCOUNTER 2019-11-24 11:57 | Emergency (ER) | payer MEDICARE, OTHER ==
--- NOTE | 2019-11-24 12:23 | ER Document Report ---
HPI - HPI Time Seen by Provider: 11/24/19 12:13 Pain Level: 2 Notes: 69-year-old female with a history of COPD and emphysema is to the emergency room for concerns of left arm with redness, swelling, warmth to touch that started on 719 after she hit her arm trying to close a storm door. States she went to urgent care that night where they found that she had a left wrist fracture, was put in a volar splint. Patient states that the swelling was getting to be too much, she tried to cut splint. Patient states that she will be able to get into orthopedics until 3 days from now. Reports pain is 3 out of 5, throbbing achy. Is not on any blood thinners besides a baby aspirin. Denies hitting her head and change in level consciousness. Patient is concerned that she may have a blood clot and also would like her splint redone since she cut it last night. Denies fevers, chills, chest pain,palpitations, shortness of breath, dyspnea, nausea, vomiting, diarrhea, abdominal pain, hematuria,blurred vision, double vision, loss of vision, speech changes, LH, dizziness, syncope, headaches, wheezing, ST, URI, neck pain, weakness, bowel or bladder dysfunction, saddle anesthesia, numbness or tingling in bilateral upper or lower extremities equally, muscle paralysis, weakness in bilateral upper or lower extremities equally or rash. Denies IV drug use. MEDICATIONS: I agree with the patient medications as charted by the RN. ALLERGIES: I agree with the allergies as charted by the RN. PAST MEDICAL HISTORY/PAST SURGICAL HISTORY: Reviewed and agree as charted by RN. SOCIAL HISTORY: Reviewed and agree as charted by RN. FAMILY HISTORY: No significant familial comorbid conditions directly related to patient complaint EXAM: Reviewed vital signs as charted by RN. REVIEW OF SYSTEMS:reviewed vital signs by RN CONSTITUTIONAL : Denies fever, chills, or sweats. Denies recent illness. EENT: Denies eye, ear, throat, or mouth pain or symptoms. Denies nasal or sinus congestion or discharge. Denies throat, tongue, or mouth swelling or difficulty swallowing. CARDIOVASCULAR: Denies chest pain. Denies palpitations or racing or irregular heart beat. Denies ankle edema. RESPIRATORY: Denies cough, cold, or chest congestion. Denies shortness of breath, difficulty breathing, or wheezing. GASTROINTESTINAL: Denies abdominal pain or distention. Denies nausea, vomiting, or diarrhea. Denies blood in vomitus, stools, or per rectum. Denies black, tarry stools. Denies constipation. GENITOURINARY: Denies difficulty urinating, painful urination, burning, frequency, blood in urine, or discharge. FEMALE GENITOURINARY: Denies vaginal bleeding, heavy or abnormal periods, irregular periods. Denies vaginal discharge or odor. MUSCULOSKELETAL: Denies back or neck pain or stiffness. Denies joint pain or swelling. SKIN: LUE with erythema, swelling and warmth to touch. Denies rash, lesions or sores. HEMATOLOGIC : Denies easy bruising or bleeding. LYMPHATIC: Denies swollen, enlarged glands. NEUROLOGICAL: Denies confusion or altered mental status. Denies passing out or loss of consciousness. Denies dizziness or lightheadedness. Denies headache. Denies weakness or paralysis or loss of use of either side. Denies problems with gait or speech. Denies sensory loss, numbness, or tingling. Denies seizures. PSYCHIATRIC: Denies anxiety or stress. Denies depression, suicidal ideation, or homicidal ideation. ALL OTHER SYSTEMS REVIEWED AND NEGATIVE. PHYSICAL EXAMINATION: GENERAL: Well-appearing, well-nourished and in no acute distress. HEAD: Atraumatic, normocephalic. EYES: Pupils equal round and reactive to light, extraocular movements intact, conjunctiva are normal. ENT: Nares patent, oropharynx clear without exudates. Moist mucous membranes. NECK: Normal range of motion, supple without lymphadenopathy LUNGS: Breath sounds clear to auscultation bilaterally and equal. No wheezes rales or rhonchi. HEART: Regular rate and rhythm without murmurs ABDOMEN: Soft, nontender, nondistended abdomen. No guarding, no rebound. No masses appreciated. Female : deferred Musculoskeletal: Normal range of motion, no pitting or edema. No cyanosis. NEUROLOGICAL: Cranial nerves grossly intact. Normal speech, normal gait. Normal sensory, motor exams PSYCH: Normal mood, normal affect. SKIN: Warm, Dry, normal turgor, no rashes or lesions noted. Left upper extremity with ecchymosis, swelling, warmth to touch on forearm. Patient is wearing a volar splint. digits in right and left with full aprom.. Rn Rehabilitation + 2 BUE equally. radial pulses + 2 BUE on left. Negative kanavels sign. .no pain with opposition, flexion, extension, abduction and adduction on left and right fingers. Motor and sensory function of ulnar, radial, medial nerves intact bilaterally and equally. strength 5/5 in BUE equally. Dictation was performed using [employer] voice recognition software - REPRODUCTIVE Reproductive: DENIES: : Past Medical History - Social History Smoking Status: Unknown if Ever Smoked Family History: Reviewed & Not Pertinent, Hypertension, Malignancy - Past Medical History Cardiac Medical History: Reports: Hx Hypertension Denies: Hx Congestive Heart Failure, Hx Heart Attack Pulmonary Medical History: Reports: Hx COPD, Hx Pneumonia Denies: Hx Asthma, Hx Bronchitis, Hx Tuberculosis Neurological Medical History: Denies: Hx Seizures Renal/ Medical History: Denies: Hx Peritoneal Dialysis Malignancy Medical History: Reports: Hx Breast Cancer GI Medical History: Denies: Hx Hepatitis, Hx Hiatal Hernia, Hx Ulcer Musculoskeletal Medical History: Reports Hx Arthritis Psychiatric Medical History: Reports: Hx Anxiety, Hx Depression Infectious Medical History: Denies: Hx Hepatitis Past Surgical History: Reports: Hx Breast Surgery - Lumpectomy, Hx Gynecologic Surgery - lainey salpingooophorectomy, Hx Hysterectomy, Hx Mastectomy - LUMPECTOMY, Hx Orthopedic Surgery - Back surgery 2, open reduction internal fixation left femur fracture 2017, Hx Tubal Ligation. Denies: Hx Open Heart Surgery - Immunizations Hx Diphtheria, Pertussis, Tetanus Vaccination: Yes - 2001 Hx Pneumococcal Vaccination: 07/05/15 Vertical Provider Document - INFECTION CONTROL TRAVEL OUTSIDE OF THE [place] IN LAST 30 DAYS: No Course - Re-evaluation Re-evalutation: 11/24/19 12:14 Consent by ____ given to place short ___splint,. cms intact, sensory motor function intact in bilateral ____extremities prior to splint application fiberglass splint placed without incident. cms intact 20 minutes after splint application. Splint is in good alignment. Bilateral ___extremities with motor and sensory function intact 20 minutes after application. Pt stated that splint felt comfortable. Discharge - Discharge Instructions: Compartment Syndrome Cautions ([facility]), Splint Pending Casting ([facility]), Splint Precautions ([facility]), Temporary Splint ([facility]) Referrals: BRITTANY FLORES ACCURACY EXPERT, ACCURACY EXPERT [Primary Care Provider] - Follow up as needed SHAHEEN,LILY, MD [ACTIVE STAFF] - Follow up as needed
[2019-11-24 12:56] LABS: HEMOGLOBIN 9.8 g/dL (12.0-15.5); MEAN CORPUSCULAR HEMOGLOBIN 32.2 pg (27.0-33.4); MEAN CORPUSCULAR HGB CONC 33.7 g/dL (32.0-36.0); MEAN CORPUSCULAR VOLUME 95 fl (80-97); PLATELET COUNT 238 10^3/uL (150-450); RED BLOOD COUNT 3.04 10^6/uL (3.72-5.28); RED CELL DISTRIBUTION WIDTH 14.2 % (11.5-14.0); WHITE BLOOD COUNT 10.7 10^3/uL (4.0-10.5)
[2019-11-24 13:00] LABS: PROTHROMBIN TIME 12.1 SEC (11.4-15.4)
[2019-11-24 13:01] LABS: PARTIAL THROMBOPLASTIN TIME 26.4 SEC (23.5-35.8)
[2019-11-24 13:12] LABS: ALBUMIN 4.5 g/dL (3.5-5.0); ALKALINE PHOSPHATASE 70 U/L (38-126); ANION GAP 5 (5-19); ASPARTATE AMINO TRANSFERASE 37 U/L (14-36); BILIRUBIN,DIRECT 0.1 mg/dL (0.0-0.4); BILIRUBIN,TOTAL 0.7 mg/dL (0.2-1.3); BLOOD UREA NITROGEN 13 mg/dL (7-20); CALCIUM 9.5 mg/dL (8.4-10.2); CARBON DIOXIDE 32 mmol/L (22-30); CHLORIDE 91 mmol/L (98-107); GLUCOSE 114 mg/dL (75-110); POTASSIUM 4.6 mmol/L (3.6-5.0); TOTAL PROTEIN 6.6 g/dL (6.3-8.2)
[2019-11-24 13:14] LABS: ABSOLUTE LYMPHOCYTES# (MANUAL) 0.4 10^3/uL (0.5-4.7); ABSOLUTE MONOCYTES # (MANUAL) 0.2 10^3/uL (0.1-1.4); ANISOCYTOSIS SLIGHT; BASOPHILS % (MANUAL) 0 % (0-2); EOSINOPHILS % (MANUAL) 0 % (0-6); LYMPHOCYTES % (MANUAL) 4 % (13-45); MONOCYTES % (MANUAL) 2 % (3-13); PLATELET COMMENT ADEQUATE; SEGMENTED NEUTROPHILS % (MAN) 94 % (42-78); TOTAL CELLS COUNTED 100
[2019-11-24 13:15] LABS: HYPOCHROMASIA SLIGHT
--- NOTE | 2019-11-24 13:55 | ER Document Report ---
ED Medical Screen (RME) - General Chief Complaint: Arm Problem Stated Complaint: LEFT ARM SWELLING Time Seen by Provider: 11/24/19 12:13 Primary Care Provider: BRITTANY FLORES THROAT CUTTER, THROAT CUTTER [Primary Care Provider] - Follow up as needed LILY JAMISON MD [ACTIVE STAFF] - Follow up as needed TRAVEL OUTSIDE OF THE [place] IN LAST 30 DAYS: No - HPI Notes: 11/24/19 13:53 69-year-old female with a history of COPD and emphysema is to the emergency room for concerns of left arm with redness, swelling, warmth to touch that started on 719 after she hit her arm trying to close a storm door. States she went to urgent care that night where they found that she had a left wrist fracture, was put in a volar splint. Patient states that the swelling was getting to be too much, she tried to cut splint. Patient states that she will be able to get into orthopedics until 3 days from now. Reports pain is 3 out of 5, throbbing achy. Is not on any blood thinners besides a baby aspirin. Denies hitting her head and change in level consciousness. Patient is concerned that she may have a blood clot and also would like her splint redone since she cut it herself last night to relief some of the pressure. Denies fevers, chills, chest pain,palpitations, shortness of breath, numbness or tingling in bilateral upper or lower extremities equally, muscle paralysis, weakness in bilateral upper or lower extremities equally or rash. PHYSICAL EXAMINATION: GENERAL: Well-appearing, well-nourished and in no acute distress. HEAD: Atraumatic, normocephalic. EYES: Pupils equal round and reactive to light, extraocular movements intact, conjunctiva are normal. ENT: Nares patent, oropharynx clear without exudates. Moist mucous membranes. NECK: Normal range of motion, supple without lymphadenopathy LUNGS: Breath sounds clear to auscultation bilaterally and equal. No wheezes rales or rhonchi. HEART: Regular rate and rhythm without murmurs ABDOMEN: Soft, nontender, nondistended abdomen. No guarding, no rebound. No masses appreciated. Female : deferred Musculoskeletal: Normal range of motion, no pitting or edema. No cyanosis. NEUROLOGICAL: Cranial nerves grossly intact. Normal speech, normal gait. Normal sensory, motor exams PSYCH: Normal mood, normal affect. SKIN: Warm, Dry, normal turgor, no rashes or lesions noted. Left upper extremity with ecchymosis, swelling, warmth to touch on forearm. Patient is wearing a volar splint. digits in right and left with full aprom. Negative kanavels sign bilaterally. - Related Data Allergies/Adverse Reactions: No Known Allergies Allergy (Verified 11/24/19 12:26) Past Medical History - Past Medical History Cardiac Medical History: Reports: Hx Hypertension Denies: Hx Congestive Heart Failure, Hx Heart Attack Pulmonary Medical History: Reports: Hx COPD, Hx Pneumonia Denies: Hx Asthma, Hx Bronchitis, Hx Tuberculosis Neurological Medical History: Denies: Hx Seizures Renal/ Medical History: Denies: Hx Peritoneal Dialysis Malignancy Medical History: Reports: Hx Breast Cancer GI Medical History: Denies: Hx Hepatitis, Hx Hiatal Hernia, Hx Ulcer Musculoskeltal Medical History: Reports Hx Arthritis Psychiatric Medical History: Reports: Hx Anxiety, Hx Depression Infectious Medical History: Denies: Hx Hepatitis Past Surgical History: Reports: Hx Breast Surgery - Lumpectomy, Hx Gynecologic Surgery - lainey salpingooophorectomy, Hx Hysterectomy, Hx Mastectomy - LUMPECTOMY, Hx Orthopedic Surgery - Back surgery 2, open reduction internal fixation left femur fracture 2017, Hx Tubal Ligation. Denies: Hx Open Heart Surgery - Immunizations Hx Diphtheria, Pertussis, Tetanus Vaccination: Yes - 2001 Physical Exam - Vital signs Vitals: Temp Pulse Resp BP Pulse Ox 98.7 F 91 19 128/64 H 94 11/24/19 12:14 11/24/19 12:14 11/24/19 12:14 11/24/19 12:14 11/24/19 12:14 Course - Vital Signs Vital signs: Temp Pulse Resp BP Pulse Ox 98.7 F 91 19 128/64 H 94 11/24/19 12:14 11/24/19 12:14 11/24/19 12:14 11/24/19 12:14 11/24/19 12:14 - Laboratory Result Diagrams: 11/24/19 12:37 11/24/19 12:37 Laboratory results interpreted by me: 11/24/19 11/24/19 12:37 12:37 WBC 10.7 H RBC 3.04 L Hgb 9.8 L Hct 29.0 L RDW 14.2 H Seg Neuts % (Manual) 94 H Lymphocytes % (Manual) 4 L Monocytes % (Manual) 2 L Abs Neuts (Manual) 10.1 H Abs Lymphs (Manual) 0.4 L Sodium 127.8 L Chloride 91 L Carbon Dioxide 32 H Glucose 114 H AST 37 H Doctor's Discharge - Discharge Instructions: Compartment Syndrome Cautions ([facility]), Splint Pending Casting ([facility]), Splint Precautions ([facility]), Temporary Splint ([facility]) Referrals: BRITTANY FLORES THROAT CUTTER, THROAT CUTTER [Primary Care Provider] - Follow up as needed LILY JAMISON MD [ACTIVE STAFF] - Follow up as needed
--- NOTE | 2019-11-24 15:35 | ER Document Report ---
ED General - General Chief Complaint: Arm Problem Stated Complaint: LEFT ARM SWELLING Time Seen by Provider: 11/24/19 12:13 Primary Care Provider: BRITTANY FLORES ELEMENTARY ELL TEACHER, ELEMENTARY ELL TEACHER [NURSE PRACTITIONER] - Follow up as needed LILY JAMISON MD [ACTIVE STAFF] - Follow up as needed Notes: HPI: Patient is a 69-year-old female that presents today after the patient states she fell 2 days ago on the onto her left arm. She states she went to an urgent care and had a x-ray showing a left wrist fracture. She was splinted. She presents today given increased swelling and bruising to arm up to her elbow. She denies pain or injury to any other location. She states she did not hit her head and has had no vomiting, weakness or numbness, or other review of systems. ROS: See HPI All other review of systems reviewed and otherwise negative Reviewed vital signs and nursing note as charted by RN. PHYSICAL EXAM: CONSTITUTIONAL: Alert and oriented and responds appropriately to questions. Well-appearing; well-nourished HEAD: Normocephalic; atraumatic NECK: Supple without meningismus; non-tender to palpation along the midline spine CARD: Regular rate and rhythm; no murmurs; symmetric distal pulses RESP: Normal chest excursion without splinting or tachypnea; breath sounds clear and equal bilaterally ABD/GI: Normal bowel sounds; non-distended; soft, non-tender EXT: I gently remove the patient's volar splint of the left forearm/wrist. Patient has some bruising to the left hand, forearm, up to the proximal elbow. Full range of motion of the elbow. No swelling or bruising to the humerus or shoulder. Tenderness and swelling mostly to the wrist. Patient has good movement of the fingers, capillary refill, color, sensation, with good radial and ulnar pulses SKIN: See above NEURO: See above PSYCH: The patient's mood and manner are appropriate. Grooming and personal hygiene are appropriate. TRAVEL OUTSIDE OF THE [place] IN LAST 30 DAYS: No - Related Data Allergies/Adverse Reactions: No Known Allergies Allergy (Verified 11/24/19 12:26) Past Medical History - Social History Smoking Status: Unknown if Ever Smoked Family History: Reviewed & Not Pertinent, Hypertension, Malignancy - Past Medical History Cardiac Medical History: Reports: Hx Hypertension Denies: Hx Congestive Heart Failure, Hx Heart Attack Pulmonary Medical History: Reports: Hx COPD, Hx Pneumonia Denies: Hx Asthma, Hx Bronchitis, Hx Tuberculosis Neurological Medical History: Denies: Hx Seizures Renal/ Medical History: Denies: Hx Peritoneal Dialysis Malignancy Medical History: Reports: Hx Breast Cancer GI Medical History: Denies: Hx Hepatitis, Hx Hiatal Hernia, Hx Ulcer Musculoskeletal Medical History: Reports Hx Arthritis Psychiatric Medical History: Reports: Hx Anxiety, Hx Depression Infectious Medical History: Denies: Hx Hepatitis Past Surgical History: Reports: Hx Breast Surgery - Lumpectomy, Hx Gynecologic Surgery - lainey salpingooophorectomy, Hx Hysterectomy, Hx Mastectomy - LUMPECTOMY, Hx Orthopedic Surgery - Back surgery 2, open reduction internal fixation left femur fracture 2017, Hx Tubal Ligation. Denies: Hx Open Heart Surgery - Immunizations Hx Diphtheria, Pertussis, Tetanus Vaccination: Yes - 2001 Hx Pneumococcal Vaccination: 07/05/15 Physical Exam - Vital signs Vitals: Temp Pulse Resp BP Pulse Ox 98.7 F 91 19 128/64 H 94 11/24/19 12:14 11/24/19 12:14 11/24/19 12:14 11/24/19 12:14 11/24/19 12:14 Course - Re-evaluation Re-evalutation: Labs were ordered in triage. In summary the patient appears to have fallen with a left wrist fracture by outside films with some increased swelling to the distal left forearm. Swelling does not past the elbow. Very low suspicion for DVT in the small venules. Patient has good pulses, capillary refill, and sensation with good hand movement and asbestos siding installer strength. I do believe compartment syndrome to be unlikely. I have removed the splint and will reimage the forearm and most likely provide a looser fitting splint. 11/24/19 16:57 X-ray as recorded. Dr. Lily Jamison the orthopedic on-call saw the images and interviewed the patient. He would like me to place the patient in a sugar tong splint and will try to get the patient into the operating room in the next 2 days. Patient is comfortable with this plan. No change in exam of the arm. - Vital Signs Vital signs: Temp Pulse Resp BP Pulse Ox 98.5 F 77 18 147/74 H 100 11/24/19 16:23 11/24/19 16:23 11/24/19 16:23 11/24/19 16:23 11/24/19 16:23 - Laboratory Result Diagrams: 11/24/19 12:37 11/24/19 12:37 Laboratory results interpreted by me: 11/24/19 11/24/19 12:37 12:37 WBC 10.7 H RBC 3.04 L Hgb 9.8 L Hct 29.0 L RDW 14.2 H Seg Neuts % (Manual) 94 H Lymphocytes % (Manual) 4 L Monocytes % (Manual) 2 L Abs Neuts (Manual) 10.1 H Abs Lymphs (Manual) 0.4 L Sodium 127.8 L Chloride 91 L Carbon Dioxide 32 H Glucose 114 H AST 37 H Discharge - Discharge Clinical Impression: Fracture subluxation of distal radioulnar joint of left wrist Condition: Fair Disposition: HOME, SELF-CARE Instructions: Compartment Syndrome Cautions ([facility]), Splint Pending Casting ([facility]), Splint Precautions ([facility]), Temporary Splint ([facility]) Additional Instructions: Come back immediately for any increased pain, loss of color sensation to the fingers, fevers or vomiting, or any other acute problems. Please make sure you elevate your arm as discussed. Please follow-up with the orthopedic surgeon as scheduled. Referrals: BRITTANY FLORES NP, ELEMENTARY ELL TEACHER [NURSE PRACTITIONER] - Follow up as needed LILY JAMISON MD [ACTIVE STAFF] - Follow up as needed
--- NOTE | 2019-11-24 16:13 | RADIOLOGY REPORT (SQ) ---
EXAM DESCRIPTION: FOREARM LEFT COMPLETED DATE/TIME: 11/24/2019 3:59 pm REASON FOR STUDY: 9; fall COMPARISON: None. NUMBER OF VIEWS: Two views. TECHNIQUE: Two radiographic images acquired of the left forearm, including elbow and wrist in at [address] one projection. LIMITATIONS: None. FINDINGS: MINERALIZATION: Normal. BONES: Impacted comminuted fracture of the distal radius. SOFT TISSUES: No obvious swelling or foreign body. OTHER: No other significant finding. IMPRESSION: IMPACTED COMMINUTED FRACTURE OF THE DISTAL RADIUS. TECHNICAL DOCUMENTATION: JOB ID: [id number] 2010 [employer]- All Rights Reserved Reading location - IP/workstation name: [email or web address]
--- NOTE | 2019-11-24 16:14 | RADIOLOGY REPORT (SQ) ---
EXAM DESCRIPTION: WRIST LEFT 3 VIEWS IMAGES COMPLETED DATE/TIME: 11/24/2019 3:59 pm REASON FOR STUDY: 9; fall COMPARISON: None. NUMBER OF VIEWS: Three views. TECHNIQUE: AP, lateral, and oblique radiographic images acquired of the left wrist. LIMITATIONS: None. FINDINGS: MINERALIZATION: Normal. BONES: Impacted comminuted intra-articular fracture of the distal radius with dorsal angulation. SOFT TISSUES: No soft tissue swelling. No foreign body. OTHER: No other significant finding. IMPRESSION: IMPACTED COMMINUTED INTRA-ARTICULAR FRACTURE OF THE DISTAL RADIUS. TECHNICAL DOCUMENTATION: JOB ID: [id number] 2010 [employer] All Rights Reserved Reading location - IP/workstation name: [email or web address]
[2019-11-24] MEDS ORDERED: CEPHALEXIN 500 MG CAPSULE PO ONE (17:01)
[2019-11-24 18:46] VITALS: BP 145/77
== END 2019-11-24 18:12 | disposition home or self-care (01) ==
LOC: ER 11:57
DX: S52.572A Other intraarticular fracture of lower end of left radius, initial encounter for closed fracture (principal); W19.XXXA Unspecified fall, initial encounter; I10 Essential (primary) hypertension; J44.9 Chronic obstructive pulmonary disease, unspecified
CPT/HCPCS: 99283; 36415; 85025; 85610; 85730; 80053; 73090; 73110; A9270

== ENCOUNTER 2019-11-26 08:50 | Day surgery (SDC) | payer MEDICARE, OTHER ==
[2019-11-26] MEDS ORDERED: CEFAZOLIN 2 GM/D5W RTU 2 GM/50 ML RTUPB IV PRN (09:20)
[2019-11-26 09:34] LABS: HEMATOCRIT 29.7 % (36.0-47.0); MEAN CORPUSCULAR HGB CONC 33.8 g/dL (32.0-36.0); MEAN CORPUSCULAR VOLUME 95 fl (80-97); PLATELET COUNT 245 10^3/uL (150-450); RED BLOOD COUNT 3.14 10^6/uL (3.72-5.28); WHITE BLOOD COUNT 7.3 10^3/uL (4.0-10.5)
[2019-11-26 09:55] LABS: BLOOD UREA NITROGEN 12 mg/dL (7-20); CALCIUM 9.8 mg/dL (8.4-10.2); GLUCOSE 102 mg/dL (75-110); POTASSIUM 4.1 mmol/L (3.6-5.0)
[2019-11-26 10:01] LABS: CARBON DIOXIDE 34 mmol/L (22-30); CHLORIDE 93 mmol/L (98-107)
[2019-11-26 10:06] LABS: ANION GAP 4 (5-19)
--- NOTE | 2019-11-26 10:35 | RADIOLOGY REPORT (SQ) ---
EXAM DESCRIPTION: CHEST SINGLE VIEW IMAGES COMPLETED DATE/TIME: 11/26/2019 9:25 am REASON FOR STUDY: PRE OP COMPARISON: 04/03/2016 EXAM PARAMETERS: NUMBER OF VIEWS: One view. TECHNIQUE: Single frontal radiographic view of the chest acquired. RADIATION DOSE: NA LIMITATIONS: None. FINDINGS: LUNGS AND PLEURA: No opacities, masses or pneumothorax. No pleural effusion. MEDIASTINUM AND HILAR STRUCTURES: No masses. Contour normal. HEART AND VASCULAR STRUCTURES: Heart normal in size. Normal vasculature. BONES: No acute findings. HARDWARE: None in the chest. OTHER: No other significant finding. IMPRESSION: NO ACUTE RADIOGRAPHIC FINDING IN THE CHEST. TECHNICAL DOCUMENTATION: JOB ID: [id number] 2010 [employer]- All Rights Reserved Reading location - IP/workstation name: [email or web address]
[2019-11-26] MEDS ORDERED: BUPIVACAINE HCL 0.25% /EPINEPHRINE INJ/PF 30 ML SDV ONE (10:44)
[2019-11-26] MEDS ORDERED: ONDANSETRON HCL INJ/PF 4 MG/2 ML SDV ONE (11:44)
[2019-11-26] MEDS ORDERED: PROPOFOL INJ 200 MG/20 ML VIAL IV ONE (11:44)
[2019-11-26] MEDS ORDERED: DEXAMETHASONE SOD PHOSPHATE INJ 4 MG/1 ML VIAL ONE (11:44)
[2019-11-26] MEDS ORDERED: MIDAZOLAM 2 MG/2 ML INJ ONE ×2 (11:44→12:38)
[2019-11-26] MEDS ORDERED: FENTANYL CITRATE INJ/PF 100 MCG/2 ML AMPUL ONE (11:44)
[2019-11-26] MEDS ORDERED: LIDOCAINE 0.5% INJ-PF (5 MG/ML) 50 ML SDV ONE (12:16)
[2019-11-26] MEDS ORDERED: CEFAZOLIN INJ 1 GM VIAL ONE (12:46)
[2019-11-26] MEDS ORDERED: FENTANYL CITRATE INJ/PF 100 MCG/2 ML AMPUL IV PRN ×3 (12:54)
[2019-11-26] MEDS ORDERED: MORPHINE SULFATE 10 MG/ML INJ IV PRN (12:54)
[2019-11-26] MEDS ORDERED: DIPHENHYDRAMINE HCL 50 MG/ML VIAL IV PRN (12:54)
[2019-11-26] MEDS ORDERED: PROMETHAZINE HCL INJ 25 MG/1 ML VIAL IV PRN (12:54)
--- NOTE | 2019-11-26 13:23 | Discharge Summary ---
Discharge Summary (SDC) - Discharge Final Diagnosis: Comminuted intra-articular left distal radius fracture Date of Surgery: 11/26/19 Discharge Date: 11/26/19 Condition: Good Treatment or Instructions: Elevate left upper extremity Prescriptions: Hydrocodone/Acetaminophen [[facility] 5-325 mg Tablet] 1 tab PO Q6 PRN #24 tablet PRN Reason: Referrals: ROBLES FINNEGAN MD [Primary Care Provider] - Discharge Diet: Regular Respiratory Treatments at Home: Deep Breathing/Coughing Discharge Activity: No tub bath Home Care Assistance: None Needed Report the Following to Your Physician Immediately: Shortness of Breath, Fever over 101 Degrees, Drainage-Foul Smelling
--- NOTE | 2019-11-26 13:25 | Operative Report ---
Operative Report DATE OF SURGERY: 11/26/19 PREOPERATIVE DIAGNOSIS: Comminuted intra-articular left distal radius fracture OPERATION: Open reduction internal fixation left distal radius fracture SURGEON: LILY JAMISON ANESTHESIA: IV-Regional ESTIMATED BLOOD LOSS: 25 PROCEDURE: With the patient supine on the operative table IV regional anesthetic is administered by anesthesia. Next the left upper extremities prepped and draped in sterile fashion. The limb is manipulated under fluoroscopic guidance to attempt a near anatomic reduction. Subsequently a 0.062 K wires placed across the radial styloid across the fracture site to hold the reduction. Next a volar approach to the distal radius is performed in the interval between the flexor carpi radialis and the radial neurovascular bundle. The underlying fracture was easily identified. A short narrow [place] titanium distal volar radial plate is applied and secured with 3 screws proximally and 4 screws distally. The hardware placement and the fracture reduction are assessed with fluoroscopy and felt to be adequate. The tourniquet is now deflated. Hemostasis obtained with bipolar cautery. The wound is closed using nylon suture. A sterile compressive dressing and volar plaster splint were applied and the patient is returned to the PACU in satisfactory condition.
[2019-11-26] MEDS ORDERED: HYDROCODONE/ACETAMINOPHEN 5-325 MG TABLET PO PRN (13:48)
[2019-11-26] MEDS: FENTANYL CITRATE INJ/PF 100 MCG/2 ML AMPUL ONE ×2 (13:58→14:05)
[2019-11-26] MEDS ORDERED: HYDROCODONE/ACETAMINOPHEN 5-325 MG TABLET ONE (14:51)
--- NOTE | 2019-11-26 15:09 | RADIOLOGY REPORT (SQ) ---
EXAM DESCRIPTION: WRIST LEFT 2 VIEWS IMAGES COMPLETED DATE/TIME: 11/26/2019 3:01 pm REASON FOR STUDY: OPEN REDUCTION INTERNAL FIXATION LEFT WRIST ASSISTED WITH FLUOROSCOPY IN OR Z79.01 ASSISTED (CURRENT) USE OF ANTICOAGULANTS COMPARISON: None. FLUOROSCOPY TIME: 44 seconds Spot images saved to PACS. TECHNIQUE: Intra-operative images acquired during surgical procedure to evaluate progress. NUMBER OF IMAGES: 2 LIMITATIONS: None. FINDINGS: Fluoroscopy was provided for intraoperative procedure. Please refer to the operative repo rt for further discussion. IMPRESSION: IMAGE(S) OBTAINED DURING PROCEDURE. COMMENT: Quality ID [id number]: Final reports for procedures using fluoroscopy that document radiation exp osure indices, or exposure time and number of fluorographic images (if radiation exposure indices are not available) Please consult full operative report of the attending physician for description of the procedure. TECHNICAL DOCUMENTATION: JOB ID: [id number] 2010 [employer]- All Rights Reserved Reading location - IP/workstation name: [email or web address]
--- NOTE | 2019-11-26 15:10 | RADIOLOGY REPORT (SQ) ---
EXAM DESCRIPTION: NO CHG FLUORO COMPLETE DATE/TIME: 11/26/2019 3:00 pm REASON FOR STUDY: OPEN REDUCTION INTERNAL FIXATION LEFT WRIST ASSISTED WITH FLUOROSCOPY IN OR Z79.01 CASSANDRA CONSULTANT (CURRENT) USE OF ANTICOAGULANTS FINDINGS: Please see combined report for performance of procedure and radiologic supervision and int erpretation. IMPRESSION: Please see combined report for performance of procedure and radiologic supervision and i nterpretation. Reading location - IP/workstation name: [email or web address]
[2019-11-26 17:49] VITALS: BP 106/55
--- NOTE | 2019-11-27 01:06 | EKG REPORT ---
SEVERITY:- OTHERWISE NORMAL ECG - SINUS RHYTHM LOW VOLTAGE IN FRONTAL LEADS : Confirmed by: Laurence Hanson 27-Nov-2019 01:06:13
== END 2019-11-26 17:25 | disposition home or self-care (01) ==
LOC: OROUT 08:50
PROVIDERS: ATTEND Orthopaedic Surgery
DX: S52.572A Other intraarticular fracture of lower end of left radius, initial encounter for closed fracture (principal); X58.XXXA Exposure to other specified factors, initial encounter; I10 Essential (primary) hypertension; Z87.891 Personal history of nicotine dependence; Z99.81 Dependence on supplemental oxygen; Z79.899 Other long term (current) drug therapy; Z86.711 Personal history of pulmonary embolism; Z03.818 Encounter for observation for suspected exposure to other biological agents ruled out
CPT/HCPCS: 25608; 36415; 85027; 80048; 71045; 73100; U0003; J2250; J3490 ×2; J0690; J1100; J3010; J2405; J2704; A9270; C9803; 87635; 93005; 93010; C1713

== ENCOUNTER → 2020-03-10 | Outpatient (CLI) | payer MEDICARE, OTHER | LOC: RT 13:00 | PROVIDERS: ATTEND Internal Medicine Pulmonary Disease | DX: J44.9 Chronic obstructive pulmonary disease, unspecified (principal); I10 Essential (primary) hypertension | CPT/HCPCS: 94060; 94727; 94729 ==